=== PATIENT | male | born 1980 | race Caucasian/White ===

== ENCOUNTER 2020-03-23 10:44 | Outpatient (REF) | payer OTHER, SELFPAY | END 2020-03-23 10:45 | disposition home or self-care (01) | LOC: HO.HMGCLDS 10:44 | PROVIDERS: Visit Provider Internal Medicine | DX: Z20.828 Contact with and (suspected) exposure to other viral communicable diseases (principal) | CPT/HCPCS: C9803; U0003 ==

== ENCOUNTER 2020-05-21 11:25 | Outpatient (REF) | payer OTHER, SELFPAY | END 2020-05-21 11:26 | disposition home or self-care (01) | LOC: HO.HMGCLDS 11:25 | PROVIDERS: PCP Nurse Practitioner Family; Visit Provider Internal Medicine | DX: Z20.822 Contact with and (suspected) exposure to COVID-19 (principal) | CPT/HCPCS: 36415; C9803; U0003 ==

== ENCOUNTER 2020-06-14 11:19 | Outpatient (REF) | payer OTHER, SELFPAY ==
--- NOTE | 2020-06-14 11:22 | US_ITS ---
EXAMINATION: US PELVIS, LIMITED/FOLLOW UP CLINICAL INFORMATION: Lower abdominal pain. COMPARISON: None TECHNIQUE: Sonographic evaluation of the right inguinal region. FINDINGS: There is no hernia identified. Lymph nodes are seen in this area measuring 2 x 0.8 x 1.5 cm and 2.5 x 0.7 x 1.4 cm. No fluid collection. US/US pelvic limited IMPRESSION: No hernia seen in the right inguinal region. Lymph nodes are present.
== END 2020-06-14 11:20 | disposition home or self-care (01) ==
LOC: HO.HMGCX 11:19
PROVIDERS: PCP Nurse Practitioner Family; Visit Provider Nurse Practitioner Family
DX: R10.30 Lower abdominal pain, unspecified (principal)
CPT/HCPCS: 76857

== ENCOUNTER 2020-07-18 12:45 | Outpatient (REF) | payer OTHER, SELFPAY ==
--- NOTE | ~2020-07-18 | US_ITS ---
EXAMINATION: US pelvic, LIMITED/FOLLOW UP CLINICAL INFORMATION: Right groin pain. Follow up lymphadenopathy. COMPARISON: Previous ultrasound May 2020 TECHNIQUE: Grayscale and color imaging of the right inguinal region using a linear transducer FINDINGS: No lymphadenopathy is seen. No hernia is appreciated. US/US pelvic limited IMPRESSION: Unremarkable examination. No hernia or lymphadenopathy is seen.
== END 2020-07-18 12:46 | disposition home or self-care (01) ==
LOC: HO.HMGCX 12:45
PROVIDERS: PCP Nurse Practitioner Family; Visit Provider Nurse Practitioner Family
DX: R59.0 Localized enlarged lymph nodes (principal)
CPT/HCPCS: 76857

== ENCOUNTER 2020-07-22 00:44 | Emergency (ER) | payer OTHER, SELFPAY ==
--- NOTE | 2020-07-22 01:08 | ED.SKABFB ---
HPI - Skin/Abscess/Foreign Bdy General Chief complaint: General Medical Stated complaint: Rash Time Seen by Provider: 07/22/20 00:55 Source: patient Mode of arrival: ambulatory Limitations: no limitations History of Present Illness HPI narrative: 40 yo male with past medical history of PUD here with complaints of rash. Patient tells me he noticed a few pinpoint lesions 2-3 weeks ago but increased in the last 24 hrs. Rash is described as burning and itchy. Patient tells me that he had a similar rash approximately 2 years ago requiring admission to the hospital. He tells me that he was seen by Infectious Disease and Dermatology but there was no on clear source of the rash. It did improve with prednisone. Patient denies fevers, chills, neck pain, headache, photophobia, joint pain or swelling, abdominal pain, vomiting, diarrhea, cough or shortness of breath. He denies any recent tick bites. He did start Protonix 4 weeks ago but has taken this previously with no issues. No other new products, medications, detergents. No sick contacts. No recent travel. MD complaint: rash Related Data Previous Rx's Medication Instructions Recorded hydrocortisone acetate 25 mg 25 mg LA DAILY PRN 30 Days #12 ea 06/17/20 rectal suppository pantoprazole 20 mg tablet,delayed 20 mg PO DAILY #30 tab 06/25/20 release Allergies Allergy/AdvReac Type Severity Reaction Status Date / Time hydromorphone [HYDROMORPHONE] Allergy Mild VOMITING Unverified 05/30/20 14:30 bee pollen [BEE STINGS] Allergy Unknown SWELLING Unverified 05/30/20 14:30 varenicline [From Chantix] Allergy Unknown severe Verified 05/30/20 14:30 stomach pain barium sulfate AdvReac Unknown Severe Verified 05/30/20 14:30 stomach pain SHELLFISH Allergy Intermediate HIVES, Uncoded 05/30/20 14:30 THROAT SWELLING ORANGE #5 DYE Allergy Mild HIVES Uncoded 05/30/20 14:30 Review of Systems Review of Systems: Yes all other systems are reviewed and are negative Constitutional: Constitutional: Reports no additional constitutional complaints, Denies body ache(s), Denies chills, Denies fever(s), Denies headache(s) and Denies weakness Eyes: Eyes: Reports no additional eye complaints and Denies change in vision ENT: Reports system reviewed and no additional complaints, except as documented, Denies dizziness, Denies headache(s), Denies nasal congestion, Denies nasal discharge and Denies neck pain Cardiovascular: Cardiovascular: Reports no additional cardiovascular complaints, Denies chest pain, Denies leg edema and Denies dyspnea Respiratory: Respiratory: Reports no additional respiratory complaints, Denies cough and Denies dyspnea Gastrointestinal: Gastrointestinal: Reports no additional gastrointestinal complaints, Denies abdominal pain, Denies diarrhea, Denies nausea and Denies vomiting Genitourinary: Genitourinary: Denies dysuria, Denies penile discharge, Denies testicular pain and Denies urinary incontinence Musculoskeletal: Musculoskeletal: Reports no additional musculoskeletal complaints, Denies back pain, Denies arthralgias, Denies joint swelling, Denies neck pain, Denies numbness and Denies tingling Integumentary/Breasts: Skin/Breast: Reports system reviewed and no additional complaints, except as docu and Reports rash Neurologic: Reports system reviewed and no additional complaints, except as documented, Denies Abnormal speech present, Denies dizziness, Denies headache(s), Denies numbness, Denies tingling and Denies weakness Psychiatric: Psychiatric: Reports anxiety PENDING SALE TO [facility] Past Medical History Attestation statement: The following information was validated with the patient. Source: old records reviewed and nursing notes reviewed Medical History (Updated 07/22/20 @ 01:09 by Cherrie Curry NP) PUD (peptic ulcer disease) Surgical History History of endoscopy Family History Family History Father No problems noted. Mother Diabetes mellitus Brother No problems noted. Sister No problems noted. Son No problems noted. Daughter No problems noted. Social History Social History Alcohol intake: current Alcohol intake frequency: a few times a week Smoking Status: Former smoker Tobacco Type: Cigarette Years Smoked: 25 years Advance Directives: No Advance Directives Information Provided: No Physical Exam Vital Signs: Vital Signs: Last Vital Signs Temp 97.8 F 07/22/20 01:09 Pulse 78 07/22/20 01:09 Resp 16 07/22/20 01:09 BP 141/88 H 07/22/20 01:09 Pulse Ox 96 07/22/20 01:09 Body Mass Index 31.8 Const: General: alert and anxious Orientation/consciousness: patient oriented x3 Limitations: no limitations HENMT: Head: Yes normal to inspection Ears: hearing grossly normal bilaterally General nose exam: Normal external nose present Face and sinus: Yes normal facial exam Mouth: Normal oral and palatal mucosa present Throat: Yes posterior oropharynx normal Eyes: General: appearance normal, both eyes and all related structures Pupils: Equal, round and reactive pupils present Neck: Neck: Yes normal visual inspection, Yes full ROM, Yes no lymphadenopathy, Yes no meningeal signs and Yes supple Chest: Chest palpation & inspection: normal inspection of the chest Resp: Effort & Inspection: normal respiratory effort Auscultation: clear to auscultation bilaterally Cardio: Rate: regular rate Rhythm: regular rhythm Peripheral pulses: Peripheral pulses 2+ throughout GI: Inspection: Yes normal to inspection Palpation (GI): Soft to palpation and nontender Auscultation: normal bowel sounds Back/Spine/Pelvis: Thoracic/Lumbar Spine: thoracic and lumbar spine normal to inspection Skin: Other: Purpuric rash over the lower extremities, lower abdomen, genital region. Few were pinpoint lesions noted on the upper extremities and back. The face spared. The hands and the soles of the feet are spared. Non blanchable. No sloughing of skin. General skin exam: no rashes or lesions noted Neuro: General: patient oriented x3, no meningeal signs, no focal motor deficits and normal sensation to monofilament Cranial nerves: Yes Equal, round and reactive pupils present Cognition (Neuro): normal cognition Speech: No Abnormal speech present Gait exam (Neuro): Normal gait present Motor exam (neuro): 5/5 motor strength present throughout Extrem: General: Yes normal to inspection Course Course Course Narrative: Purpuric rash over LE, genitals, lower abdomen with fewer lesions on the UE x several weeks worsening over the last 24 hrs. Well appearing, stable vital signs. No other complaints. Afebrile. No meningeal signs. Had similar rash 2 yrs ago with unknown cause which improved with prednisone. Will check labs including inflammatory markers, UA, COVID screen. 0200-Sign out to Dr Barlow pending above. MDM - Skin/Abscess/Foreign Bdy MDM Narrative Medical decision making narrative: Vasculitis (HSP), viral exanthum, rickettsia, meningococcal rash, gonococcal rash, drug rash (SJS, TEN). Medical Records Attestation: I reviewed the patient's medical records. Lab Data Attestation: I reviewed the patient's lab results. Result diagrams: 07/22/20 01:07/22/20 01:33 Labs: Lab Results 07/22/20 07/22/20 07/22/20 Range/Units : 01:33 01:33 WBC 6.0 (4.8-10.8) X10*3/uL RBC 4.96 (4.60-5.80) X10*6/uL Hgb 14.7 (14.0-18.0) g/dl Hct 43.6 (42-52) % MCV 87.9 (80-98) fL MCH 29.6 (27.0-33.0) pg MCHC 33.7 (31.0-36.0) g/dl RDW 12.4 (11.0-16.0) % Plt Count 236 (160-400) X10*3/uL MPV 10.3 (9.4-12.4) fL Immature Gran % (Auto) 0.2 (0.0-0.4) % Neut % (Auto) 48.8 (45-73) % Lymph % (Auto) 36.8 (20-40) % [place]orne % (Auto) 9.7 (2-11) % Eos % (Auto) 4.2 H (0-4) % Baso % (Auto) 0.3 (0-2) % Lymph # (Auto) 2.2 (1.2-4.9) X10*3/uL [place] # (Auto) 0.6 (0.1-1.2) X10*3/uL Eos # (Auto) 0.3 (0.0-0.4) X10*3/uL Baso # (Auto) 0.0 (0.0-0.2) X10*3/uL Abs Immat Gran (auto) 0.01 (0.00-0.03) X10*3/uL Absolute Neuts (auto) 2.9 (2.0-8.3) X10*3/uL Absolute Nucleated RBC 0.000 (0.0-0.012) X10*3/uL Nucleated RBC % (auto) 0.0 (0.0-0.2) /100WBC Lactic Acid 1.4 (0.5-2.0) mmol/L COVID-19 ([facility]) Negative (Negative) COVID-19 Clin Com See Note Discharge Plan Discharge Prescriptions: No Action hydrocortisone acetate [Anusol-HC] 25 mg suppository 25 mg LA DAILY PRN (Reason: hemorrhoids) 30 Days Qty: 12 RF: 0 pantoprazole 20 mg tablet,delayed release (DR/EC) 20 mg PO DAILY Qty: 30 RF: 2
[2020-07-22 01:09] VITALS: BP 141/88; PULSE 78; RESP 16; TEMP 36.6; O2SAT 96; BMI 31.8
[2020-07-22 01:43] LABS: MANUAL DIFF FLAG NO
[2020-07-22 01:44] LABS: Basophils Percent Auto 0.3 % (0-2); Eosinophils Absolute Auto 0.3 X10*3/uL (0.0-0.4); Eosinophils Percent Auto 4.2 % (0-4); Hematocrit 43.6 % (42-52); Hemoglobin 14.7 g/dl (14.0-18.0); Imm Gran Abs Auto 0.01 X10*3/uL (0.00-0.03); Imm Gran Pct Auto 0.2 % (0.0-0.4); Lymphocytes Absolute Auto 2.2 X10*3/uL (1.2-4.9); Lymphocytes Percent Auto 36.8 % (20-40); Mean Corpuscular HGB Conc 33.7 g/dl (31.0-36.0); Mean Corpuscular Hemoglobin 29.6 pg (27.0-33.0); Mean Corpuscular Volume 87.9 fL (80-98); Mean Platelet Volume 10.3 fL (9.4-12.4); Monocytes Absolute Auto 0.6 X10*3/uL (0.1-1.2); Monocytes Percent Auto 9.7 % (2-11); Neutrophils Absolute Auto 2.9 X10*3/uL (2.0-8.3); Neutrophils Percent Auto 48.8 % (45-73); Platelet Count 236 X10*3/uL (160-400); Red Blood Count 4.96 X10*6/uL (4.60-5.80); Red Cell Distribution Width 12.4 % (11.0-16.0)
[2020-07-22] MEDS: LORazepam 1 MG TABLET 2 MG PO (01:52)
[2020-07-22 01:57] LABS: COVID-19 Test Negative (Negative)
[2020-07-22 02:04] LABS: Lactic Acid 1.4 mmol/L (0.5-2.0)
[2020-07-22 02:15] LABS: Alanine Aminotransferase 117 U/L (0-40); Albumin Level 4.5 g/dL (3.5-5.0); Alkaline Phosphatase 78 U/L (39-117); Anion Gap 14 (12-20); Aspartate Amino Transferase 52 U/L (5-37); Bilirubin Direct < 0.2 mg/dL (0.0-0.5); Bilirubin Total 0.4 mg/dL (0.0-1.0); Blood Urea Nitrogen 17 mg/dL (9-16); C Reactive Protein 0.28 mg/dL (< or = 0.50); Calcium 9.1 mg/dL (8.4-10.2); Carbon Dioxide 25 mmol/L (22-29); Chloride 106 mmol/L (96-108); Creatinine Clr Calc Pharmacy 125.5; Estimated Glomerular Filt Rate > 60; Glucose Random 129 mg/dL (60-115); Sodium 141 mmol/L (135-145); Total Protein 7.4 g/dL (6.5-8.0)
[2020-07-22 02:21] LABS: Erythrocyte Sedimentation Rate 4 MM/HR (0-15)
[2020-07-22] MEDS: predniSONE 20 MG TABLET 60 MG PO (02:39)
[2020-07-22] MEDS: LORazepam 1 MG TABLET PO (02:40)
[2020-07-22 03:09] VITALS: BP 143/92; PULSE 72; RESP 16; O2SAT 98
[2020-07-22 03:09] LABS: Glucose Urine UA NEG (NEG); Leukocyte Esterase Urine NEG (NEG); Nitrite Urine NEG (NEG); PH 6.5 (5.0-8.0); Specific Gravity - Urine >= 1.030 (1.005-1.025); Urine Blood NEG (NEG); Urine Ketones NEG (NEG); Urine Protein NEG (NEG-TRACE)
[2020-07-22 03:11] LABS: Appearance Urine CLEAR; Color Urine YELLOW
[2020-07-23 18:07] LABS: Lyme Abs Screen <0.90 index
== END 2020-07-22 03:32 | disposition home or self-care (01) ==
PROVIDERS: Nurse Practitioner Family; Emergency Provider Emergency Medicine; PCP Nurse Practitioner Family
DX: L29.9 Pruritus, unspecified (principal); Z20.822 Contact with and (suspected) exposure to COVID-19; F17.210 Nicotine dependence, cigarettes, uncomplicated
CPT/HCPCS: 36415; 80048; 80076; 81003; 83605; 85025; 85652; 86140; 86618; 87040; 87635; 99283; 99284

== ENCOUNTER → 2020-08-15 15:24 | Outpatient (BNVA) | payer OTHER, SELFPAY | PROVIDERS: PCP Nurse Practitioner Family; Visit Provider Surgery | DX: K64.5 Perianal venous thrombosis (principal) | CPT/HCPCS: 46600 ==

== ENCOUNTER → 2020-08-27 12:47 | Outpatient (BNVA) | payer OTHER, SELFPAY | PROVIDERS: PCP Nurse Practitioner Family; Visit Provider Surgery | DX: K64.5 Perianal venous thrombosis (principal) | CPT/HCPCS: 46600 ==

== ENCOUNTER → 2020-09-11 11:16 | Outpatient (BNVA) | payer OTHER, SELFPAY | PROVIDERS: PCP Nurse Practitioner Family; Visit Provider Psychiatry & Neurology Neurology ==

== ENCOUNTER 2021-02-09 15:48 | Emergency (ER) | payer BC, SELFPAY ==
--- NOTE | ~2021-02-09 | XR_ITS ---
FRACTURE EXAMINATION: XR ANKLE, RIGHT CLINICAL INFORMATION: Right lower extremity injury. COMPARISON: No similar priors. TECHNIQUE: Two views of the right ankle. FINDINGS: There is asymmetric soft tissue edema around the lateral malleolus with a fracture in the lateral surface of the talus. There is also asymmetric widening of the medial clear space of the ankle mortise. XR/XR ankle RT 2V IMPRESSION: Fracture in the lateral surface of the talus with asymmetric widening of the medial clear space at the ankle mortise.
--- NOTE | ~2021-02-09 | XR_ITS ---
EXAMINATION: XR FOOT, RIGHT CLINICAL INFORMATION: Right lower extremity injury. COMPARISON: Radiographs of the right ankle done simultaneously. TECHNIQUE: AP, lateral, and oblique views of the right foot. FINDINGS: Asymmetric soft tissue edema around the lateral malleolus. A talar fracture is best seen in the radiographs of the right ankle. There is widening in between the second and third cuneiforms/metatarsal bones of uncertain etiology, possibly related with patient positioning. No additional fractures or malalignment. Plantar calcaneal spur is seen. XR/XR foot RT min 3V IMPRESSION: Indeterminate widening in between the second and third cuneiform/metatarsal bones possibly related with patient positioning. A talar fracture is best evaluated in the radiograph of the right ankle.
[2021-02-09 16:26] VITALS: BP 129/79; PULSE 88; RESP 18; TEMP 36.8; O2SAT 97; BMI 32.5
--- NOTE | 2021-02-09 17:55 | ED.LOWEXIN ---
HPI - Extremity Injury (Lower) General Chief Complaint: Extremity Injury, Lower Stated Complaint: ankle inj Time Seen by Provider: 02/09/21 17:55 Source: patient Mode of arrival: wheelchair Limitations: no limitations History of Present Illness HPI Narrative: 41-year-old presents with right ankle pain. Patient was golfing, and stepped in a hole. He has no pain when he is resting his foot, he has 7/10 pain when he is moving. He has tingling in his toes and feels like he hit his ?funny bone? in his foot. He did not suffer head strike, no loss of consciousness MD complaint: foot injury Onset (ago): hour(s) (1) Type of Injury: unknown Place: street/outdoors Severity: moderate Severity scale (1-10): 5 Relieving factors: nothing Exacerbating factors: weight bearing Associated symptoms: swelling, tingling and unable to bear weight Other symptoms: none Related Data Previous Rx's Medication Instructions Recorded hydrocortisone acetate 25 mg 25 mg [place] DAILY PRN 30 Days #12 ea 06/17/20 rectal suppository (Anusol-HC) cyclobenzaprine 10 mg tablet 10 mg PO TID PRN #14 tab 07/22/20 hydrocodone 5 mg-acetaminophen 325 1 tab PO Q6H PRN #12 tab 07/22/20 mg tablet prednisone 20 mg tablet 40 mg PO DAILY 5 Days #10 tab 07/22/20 epinephrine 0.1 mg/mL injection 0.1 mg IM Q30M PRN 1 Days #20 ml 11/12/20 syringe epinephrine 0.3 mg/0.3 mL 0.3 mg IM Q10M PRN 30 Days #2 ea 11/14/20 injection, auto-injector (EpiPen) pantoprazole 20 mg tablet,delayed 20 mg PO DAILY #30 tab 12/18/20 release naproxen 500 mg tablet 500 mg PO BID 10 Days #20 tab 02/09/21 Allergies Allergy/AdvReac Type Severity Reaction Status Date / Time bee pollen [BEE STINGS] Allergy Intermediate SWELLING Verified 02/09/21 16:25 varenicline [From Chantix] Allergy Intermediate severe Verified 02/09/21 16:25 stomach pain hydromorphone [HYDROMORPHONE] Allergy Mild VOMITING Verified 02/09/21 16:25 metronidazole [From Flagyl] Allergy Difficulty Verified 02/09/21 16:25 Breathing barium sulfate AdvReac Intermediate Severe Verified 02/09/21 16:25 stomach pain SHELLFISH Allergy Intermediate HIVES, Uncoded 05/30/20 14:30 THROAT SWELLING ORANGE #5 DYE Allergy Mild HIVES Uncoded 05/30/20 14:30 Review of Systems Constitutional: Constitutional: Denies body ache(s), Denies chills, Denies fatigue, Denies fever(s), Denies headache(s), Denies malaise and Denies weakness Eyes: Eyes: Denies diplopia ENT: Denies vertigo, Denies dizziness, Denies otalgia, Denies headache(s), Denies mouth pain, Denies post nasal drip, Denies sinus pain, Denies sinus pressure, Denies sore throat and Denies throat swelling Cardiovascular: Cardiovascular: Denies chest pain, Denies syncope, Denies leg edema, Denies lightheadedness, Denies Loss of Consciousness, Denies palpitations and Denies dyspnea Respiratory: Respiratory: Denies chest congestion, Denies cough and Denies dyspnea Musculoskeletal: Musculoskeletal: Reports arthralgias, Reports joint swelling, Reports limited range of motion and Reports numbness Comments: Right foot and ankle pain Neurologic: Denies confusion, Denies vertigo, Denies dizziness, Denies syncope, Denies headache(s), Reports numbness and Denies weakness Psychiatric: Psychiatric: Denies anxiety, Denies confusion and Denies depression Endocrine: Endocrine: Denies fatigue and Denies palpitations Allergic/Immunologic: Allergic/Immunologic: Denies throat swelling PMFSH Past Medical History Medical History PUD (peptic ulcer disease) Surgical History History of endoscopy Family History Family History Father No problems noted. Mother Diabetes mellitus Brother No problems noted. Sister No problems noted. Son No problems noted. Daughter No problems noted. Social History Social History Alcohol intake: current Alcohol intake frequency: holidays/special occasions only Years Smoked: 25 years Advance Directives: No Advance Directives Information Provided: No Physical Exam Vital Signs: Vital Signs: Last Vital Signs Temp 98.3 F 02/09/21 16:26 Pulse 88 02/09/21 16:26 Resp 18 02/09/21 16:26 BP 129/79 02/09/21 16:26 Pulse Ox 97 02/09/21 16:26 Body Mass Index 32.5 Const: General: No confusion Nutritional Appearance: well nourished Orientation/consciousness: No confusion Limitations: no limitations Eyes: Conjunctivae: conjunctivae normal Pupils: Equal, round and reactive pupils present EOM: EOMs intact bilaterally Neck: Neck: Yes full ROM, Yes no lymphadenopathy and Yes supple Resp: Effort & Inspection: normal respiratory effort and able to speak in complete sentences Auscultation: clear to auscultation bilaterally, no crackles, no rales, no rhonchi and no wheezes Cardio: Rate: regular rate Rhythm: regular rhythm Heart sounds: S1 normal heart sound present and S2 normal heart sound present Skin: General skin exam: no rashes or lesions noted Neuro: General: No confusion Cranial nerves: Yes Equal, round and reactive pupils present Extrem: Right lower extremity: normal capillary refill and ankle Details: tenderness Location: of the lateral malleolus, swelling Details: laterally and abnormal ROM Details: pain with active ROM and pain with passive ROM; Negative for no unusual warmth, no ecchymosis and no crepitus Psych: Appearance: grossly normal Affect: normal affect Attitude: cooperative Thought process: Normal thought process present Course Course Course Narrative: 41-year-old male presents for right ankle pain after stepping in a hole wall golfing. XR shows: Fracture in the lateral surface of the talus with asymmetric widening of the medial clear space at the ankle mortise. Indeterminate widening in between the second and third cuneiform/metatarsal bones possibly related with patient positioning Patient splinted in a posterior short-leg splint and a stirrup splint. Fiberglass. Fitted with crutches. Prescribed oxycodone, follow-up with Orthopedics, out of work until Orthopedics season releases him. Discussed rest ice elevation compression. Discharge Plan Discharge Clinical Impression: Foot fracture, right Qualifiers: Encounter type: initial encounter Fracture type: closed Qualified Code(s): S92.901A - Unspecified fracture of right foot, initial encounter for closed fracture Patient Disposition: Home, Self-Care Instructions: Crutch Instructions (ED), Foot Fracture in Adults (ED), R.I.C.E. Treatment (ED) Additional Instructions: Do not weight bear. Leave splint on until you are seen and released by Orthopedics. You may not work until you are seen by orthopedics and they say it is okay. Please rest, and elevate your right leg as much as possible. Take Naproxen as prescribed Prescriptions: New naproxen 500 mg tablet 500 mg PO BID 10 Days Qty: 20 RF: 0 No Action hydrocortisone acetate [Anusol-HC] 25 mg suppository 25 mg UT DAILY PRN (Reason: hemorrhoids) 30 Days Qty: 12 RF: 0 epinephrine 0.1 mg/mL syringe 0.1 mg IM Q30M PRN (Reason: anaphylaxis) 1 Days Qty: 20 RF: 0 epinephrine [EpiPen] 0.3 mg/0.3 mL auto-injector 0.3 mg IM Q10M PRN (Reason: anaphylaxis) 30 Days Qty: 2 RF: 0 pantoprazole 20 mg tablet,delayed release (DR/EC) 20 mg PO DAILY Qty: 30 RF: 2 cyclobenzaprine 10 mg tablet 10 mg PO TID PRN (Reason: muscle spasm) Qty: 14 RF: 0 hydrocodone-acetaminophen 5-325 mg tablet 1 tab PO Q6H PRN (Reason: pain) Qty: 12 RF: 0 prednisone 20 mg tablet 40 mg PO DAILY 5 Days Qty: 10 RF: 0
[2021-02-09] MEDS: Acetaminophen 325 MG TABLET 975 MG PO (18:35)
--- NOTE | 2021-02-09 18:58 | PC.NURSE ---
POSTERIOR SHORT WITH STIR-UP APPLIED TO RIGHT FOOT CHECKED BY KATINA HUMMEL.
== END 2021-02-09 19:11 | disposition home or self-care (01) ==
PROVIDERS: Emergency Provider Internal Medicine; PCP Nurse Practitioner Family
DX: S92.901A Unspecified fracture of right foot, initial encounter for closed fracture (principal); M79.671 Pain in right foot; W01.0XXA Fall on same level from slipping, tripping and stumbling without subsequent striking against object, initial encounter; Y93.9 Activity, unspecified; Y92.9 Unspecified place or not applicable; Y99.9 Unspecified external cause status
CPT/HCPCS: 29515; 73600; 73630; 99284

== ENCOUNTER → 2021-02-13 12:55 | Outpatient (BNVA) | payer BC, SELFPAY | PROVIDERS: PCP Nurse Practitioner Family; Visit Provider Physician Assistant ==

== ENCOUNTER 2021-02-27 09:37 | Outpatient (REF) | payer BC, SELFPAY ==
--- NOTE | ~2021-02-27 | MR_ITS ---
EXAMINATION: MRI FOOT WITHOUT CONTRAST, RIGHT CLINICAL INFORMATION: Right foot injury. Pain and swelling. Sprain of tarsometatarsal ligament. COMPARISON: Right foot and ankle radiographs dated 02/09/2021. TECHNIQUE: Multisequence MR imaging of the right foot was obtained without contrast on a high-field strength scanner. FINDINGS: BONE: No acute fracture or dislocation. No significant widening between the 2nd and 3rd cuneiform. The findings on prior radiograph are likely projectional. No stress reaction. Intact articular cartilage. MUSCLES/TENDONS: The visualized muscles and tendons are intact. LIGAMENTS: Intact Lisfranc ligament. The plantar plates are intact. SOFT TISSUES: Mild dorsal/lateral subcutaneous edema. Small 1st metatarsophalangeal joint effusion. MR/MR foot RT wo con IMPRESSION: 1. No acute osseous injury. No widening at the 2nd and 3rd cuneiform articulation. Findings on the prior radiograph are likely projectional. 2. Dorsal/lateral subcutaneous edema without organized fluid collection. 3. Small 1st metatarsophalangeal joint effusion.
== END 2021-02-27 09:38 | disposition home or self-care (01) ==
LOC: HO.MRI 09:37
PROVIDERS: PCP Nurse Practitioner Family; Visit Provider Physician Assistant
DX: S93.621D Sprain of tarsometatarsal ligament of right foot, subsequent encounter (principal)
CPT/HCPCS: 73718

== ENCOUNTER → 2021-03-15 12:26 | Outpatient (BNVA) | payer BC, SELFPAY | PROVIDERS: Visit Provider Physician Assistant ==

== ENCOUNTER 2021-06-04 10:47 | Outpatient (REF) | payer BC, SELFPAY ==
--- NOTE | ~2021-06-04 | XR_ITS ---
EXAMINATION: XR KNEE, LEFT CLINICAL INFORMATION: Pain left knee COMPARISON: None TECHNIQUE: Four views of the left knee. FINDINGS: Mild loss of medial compartment joint space with minimal periarticular spurring. The lateral and patellofemoral compartment joint space is normal. Mild suprapatellar joint effusion is seen. No acute fracture, dislocation or subluxation seen. No lytic or sclerotic process. XR/XR knee LT 4V IMPRESSION: Mild degenerative changes medial compartment with minimal periarticular spurring.
== END 2021-06-04 10:48 | disposition home or self-care (01) ==
LOC: HO.HMGCX 10:47
PROVIDERS: PCP Nurse Practitioner Family; Visit Provider Nurse Practitioner Family
DX: M25.562 Pain in left knee (principal)
CPT/HCPCS: 73564

== ENCOUNTER 2021-07-17 08:50 | Outpatient (RCR) | payer BC, SELFPAY ==
--- NOTE | 2021-07-17 17:39 | MHC.PT.EP ---
[facility] [place] [facility] [place] [facility] [place] [facility] [address] Poli Haynes [address] [phone] F: [phone] F: [phone] F: [phone] F: [phone] Physical Therapy Plan of Care Date of Evaluation: Date of Surgery: Diagnosis: L knee pain. 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 Pt is deemed an appropriate candidate to receive skilled PT in order to address his physical limitations to improve his functional ability. Frequency and Duration: The patient will be seen 1 x / wk x 6 wks. Short Term Goals: initiate HEP [employer] Goals: I with HEP. improve L knee ext to > 4+/5, initial 4/5. Pt will be able to negotiate 1 fl of stairs with managed Sx. Pt will be able to walk 1 mile with managed Sx. Improve glute Med MMT to > 4+/5, initial 4/5 B. Treatment Plan: Modalities to reduce pain, spasms and effusion. Manual therapy to restore motion and function. Therapeutic exercise to improve strength and flexibility. Neuromuscular re-education for posture and balance. Therapeutic activities to return to functional activities of daily living. Electronically signed by: Darius Light, PT, DPT. Please sign and return to therapist. Thank you for your referral.
--- NOTE | 2022-01-08 15:59 | MHC.PT.DC ---
[facility] [place] Office [place] Office [place] Office [address] Poli Haynes [address] [phone] F: [phone] F: [phone] F: [phone] F: [phone] Physical Therapy Discharge Report Diagnosis: L knee pain. Date of Surgery: Date of Evaluation: 07/17/21 Date of Discharge: 01/08/22 Treatments to Date: 1 Cancellations to Date: No Shows to Date: 2 Discharge Status: Visit Non-compliance Discharge Summary: Electronically signed by: Darius Light PT. Please sign and return to therapist. Thank you for your referral.
== END 2022-01-08 16:00 | disposition home or self-care (01) ==
LOC: HO.PTCHIC 08:50
PROVIDERS: PCP Nurse Practitioner Family; Visit Provider Nurse Practitioner Family
DX: M25.562 Pain in left knee (principal)
CPT/HCPCS: 97110; 97161

== ENCOUNTER 2021-10-07 11:41 | Outpatient (REF) | payer BC, SELFPAY ==
[2021-10-07 13:49] LABS: Alanine Aminotransferase 132 U/L (0-40); Albumin Level 4.5 g/dL (3.5-5.0); Alkaline Phosphatase 105 U/L (39-117); Anion Gap 15 (12-20); Aspartate Amino Transferase 53 U/L (5-37); Bilirubin Total 0.5 mg/dL (0.0-1.0); Blood Urea Nitrogen 16 mg/dL (9-16); Calcium 9.6 mg/dL (8.4-10.2); Carbon Dioxide 23 mmol/L (22-29); Chloride 102 mmol/L (96-108); Cholesterol 278 mg/dL; Estimated Glomerular Filt Rate > 60; Glucose Fasting 219 mg/dL (60-99); HDL Cholesterol 37 mg/dL; Potassium 4.4 mmol/L (3.3-5.1); Sodium 136 mmol/L (135-145); Total Protein 7.9 g/dL (6.5-8.0); Triglycerides 634 mg/dL
[2021-10-07 13:54] LABS: Appearance Urine CLEAR; Color Urine YELLOW; Glucose Urine UA 250 MG/DL (NEG); Leukocyte Esterase Urine NEG (NEG); Nitrite Urine NEG (NEG); PH 5.5 (5.0-8.0); Specific Gravity - Urine >= 1.030 (1.005-1.025); UACC Culture Trigger NO; Urine Blood NEG (NEG); Urine Ketones NEG (NEG); Urine Protein 1+ MG/DL (NEG-TRACE)
[2021-10-07 13:56] LABS: TSH reflex Free T4 5.39 uIU/mL (0.32-4.0)
[2021-10-07 14:30] LABS: RBC Urine 0 /HPF (0); Squamous Epithelial Cell Urine TRACE /LPF; WBC Urine 0 /HPF (0-4)
[2021-10-07 14:35] LABS: Free T4 (Free Thyroxine) 0.87 ng/dL (0.71-1.85)
== END 2021-10-07 11:42 | disposition home or self-care (01) ==
LOC: HO.WFDLDS 11:41
PROVIDERS: Visit Provider Nurse Practitioner Family
DX: Z00.00 Encounter for general adult medical examination without abnormal findings (principal)
CPT/HCPCS: 36415; 80053; 80061; 81001; 84439; 84443

== ENCOUNTER 2021-10-29 15:13 | Outpatient (REF) | payer BC, SELFPAY ==
--- NOTE | ~2021-10-29 | XR_ITS ---
EXAMINATION: XR ELBOW, RIGHT CLINICAL INFORMATION: Enthesopathy. Pain. COMPARISON: Left elbow 12/14/2015. TECHNIQUE: AP, lateral, and oblique views of the right elbow. FINDINGS: The right elbow joint space is maintained normal. No abnormal joint effusion seen. No bony erosive changes. No acute fracture or dislocation. There is minimal posterior elbow soft tissue swelling with slightly hyperintense thickened linear soft tissue question thickened capsule. However there is no abnormal fat pad sign. XR/XR elbow RT min 3V IMPRESSION: Minimal posterior right elbow soft tissue swelling with mild linear thickening of soft tissue density. No loose bodies or acute fracture seen.
== END 2021-10-29 15:14 | disposition home or self-care (01) ==
LOC: HO.HMGCX 15:13
PROVIDERS: PCP Nurse Practitioner Family; Visit Provider Internal Medicine
DX: M77.8 Other enthesopathies, not elsewhere classified (principal)
CPT/HCPCS: 73080

== ENCOUNTER 2021-11-05 08:52 | Outpatient (REF) | payer BC, MEDICAID, SELFPAY ==
[2021-11-05 11:29] LABS: MANUAL DIFF FLAG NO
[2021-11-05 11:32] LABS: Appearance Urine CLOUDY; Color Urine YELLOW; Glucose Urine UA 100 MG/DL (NEG); Leukocyte Esterase Urine NEG (NEG); Nitrite Urine NEG (NEG); PH 5.5 (5.0-8.0); Specific Gravity - Urine >= 1.030 (1.005-1.025); Urine Blood NEG (NEG); Urine Ketones NEG (NEG); Urine Protein NEG (NEG-TRACE)
[2021-11-05 11:53] LABS: Basophils Percent Auto 0.4 % (0-2); Eosinophils Absolute Auto 0.2 X10*3/uL (0.0-0.4); Eosinophils Percent Auto 4.8 % (0-4); Hemoglobin 14.6 g/dl (14.0-18.0); Imm Gran Abs Auto 0.01 X10*3/uL (0.00-0.03); Imm Gran Pct Auto 0.2 % (0.0-0.4); Lymphocytes Absolute Auto 1.6 X10*3/uL (1.2-4.9); Lymphocytes Percent Auto 31.5 % (20-40); Mean Corpuscular HGB Conc 32.4 g/dl (31.0-36.0); Mean Corpuscular Volume 89.3 fL (80.0-98.0); Mean Platelet Volume 10.5 fL (9.4-12.4); Monocytes Absolute Auto 0.5 X10*3/uL (0.1-1.2); Monocytes Percent Auto 10.5 % (2-11); Neutrophils Absolute Auto 2.6 x10*3/uL (2.0-8.3); Neutrophils Percent Auto 52.6 % (45-73); Platelet Count 218 X10*3/uL (160-400); Red Blood Count 5.04 X10*6/uL (4.60-5.80); Red Cell Distribution Width 12.3 % (11.0-16.0)
[2021-11-05 12:16] LABS: TSH reflex Free T4 4.83 uIU/mL (0.32-4.0)
[2021-11-05 14:13] LABS: Free T4 (Free Thyroxine) 0.84 ng/dL (0.71-1.85)
[2021-11-07 10:21] LABS: Thyroid Peroxidase Antibodies >900 IU/mL (<9)
== END 2021-11-05 08:53 | disposition home or self-care (01) ==
LOC: HO.HMGCLDS 08:52
PROVIDERS: PCP Nurse Practitioner Family; Visit Provider Nurse Practitioner Family
DX: R79.89 Other specified abnormal findings of blood chemistry (principal); E11.9 Type 2 diabetes mellitus without complications
CPT/HCPCS: 36415; 81003; 84439; 84443; 85025; 86376

== ENCOUNTER 2021-11-11 10:30 | Outpatient (REF) | payer BC, SELFPAY ==
--- NOTE | ~2021-11-11 | XR_ITS ---
EXAMINATION: XR KNEE, LEFT CLINICAL INFORMATION: Pain in left knee COMPARISON: None TECHNIQUE: Four views of the left knee. FINDINGS: No fracture or dislocation. Increased suprapatellar soft tissue density may represent a joint effusion or more likely overlying soft tissues due to body habitus. Mild medial compartment joint space narrowing. No osteophytosis. XR/XR knee LT 4V IMPRESSION: Mild medial compartment joint space narrowing. Increased suprapatellar soft tissue density on the lateral view is more likely overlying soft tissues due to body habitus than a joint effusion.
== END 2021-11-11 10:31 | disposition home or self-care (01) ==
LOC: HO.HMGCX 10:30
PROVIDERS: Visit Provider Physician Assistant
DX: M25.562 Pain in left knee (principal)
CPT/HCPCS: 73564

== ENCOUNTER 2021-12-03 08:05 | Outpatient (REF) | payer BC, SELFPAY ==
--- NOTE | ~2021-12-03 | XR_ITS ---
EXAMINATION: XR KNEE AP STANDING. XR KNEE, LEFT CLINICAL INFORMATION: Knee pain COMPARISON: 11/11/2021 TECHNIQUE: AP bilateral standing view of the knees was obtained. Lateral and sunrise views of the left knee FINDINGS: Mild medial compartment narrowing and small marginal osteophytes of the left knee. No joint effusion. Normal AP view of the right knee. XR/XR knee standing BI IMPRESSION: Mild medial compartment osteoarthritis of the left knee. No change.
--- NOTE | ~2021-12-03 | XR_ITS ---
EXAMINATION: XR KNEE AP STANDING. XR KNEE, LEFT CLINICAL INFORMATION: Knee pain COMPARISON: 11/11/2021 TECHNIQUE: AP bilateral standing view of the knees was obtained. Lateral and sunrise views of the left knee FINDINGS: Mild medial compartment narrowing and small marginal osteophytes of the left knee. No joint effusion. Normal AP view of the right knee. XR/XR knee LT 1V IMPRESSION: Mild medial compartment osteoarthritis of the left knee. No change.
== END 2021-12-03 08:06 | disposition home or self-care (01) ==
LOC: HO.HOSX 08:05
PROVIDERS: Visit Provider Physician Assistant
DX: S83.242D Other tear of medial meniscus, current injury, left knee, subsequent encounter (principal)
CPT/HCPCS: 73560; 73565; 99212

== ENCOUNTER → 2022-01-06 10:23 | Outpatient (BNVA) | payer BC, OTHER, SELFPAY | PROVIDERS: PCP Nurse Practitioner Family; Visit Provider Physician Assistant | DX: S83.242A Other tear of medial meniscus, current injury, left knee, initial encounter (principal) | CPT/HCPCS: 99212 ==

== ENCOUNTER → 2022-01-17 10:36 | Outpatient (BNVA) | payer BC, OTHER, SELFPAY | PROVIDERS: PCP Nurse Practitioner Family; Visit Provider Orthopaedic Surgery | DX: S83.207A Unspecified tear of unspecified meniscus, current injury, left knee, initial encounter (principal); E11.9 Type 2 diabetes mellitus without complications | CPT/HCPCS: 99212 ==

== ENCOUNTER 2022-01-27 14:39 | Outpatient (RCR) | payer BC, SELFPAY ==
--- NOTE | 2022-01-28 07:30 | MHC.PT.EP ---
[facility] [place] Office [place] Office [place] Office [address] Poli Haynes [address] [phone] F: [phone] F: [phone] F: [phone] F: [phone] Physical Therapy Plan of Care Date of Evaluation: Date of Surgery: Diagnosis: This is a 42 yo male presenting to skilled PT with a script for L knee meniscal tear Assessment: This is a 42 yo male presenting to skilled PT with a script for L knee meniscal tear. Pt comes to PT reporting that on 11/12 at work she was moving boxes when he felt his left knee pop. Since then he has been having pain. He has been seen by [facility] ortho, had an MRI and has a torn medial meniscus from injury at work as well as an absent ACL from an old football injury per patient. Pt has been out of work and is planning on having surgery on 02/[address] Chisholm. He reports that he has been experiencing pain since as well as crepitus, locking, clicking and popping with change of knee position. He also had an x-ray that showed medial compartment joint space narrowing. He has pain with weightbearing as well as at rest. He is limited in activity tolerance including stairs, ambulation, lifting, and bending. Pain is located mainly at the medial joint line and is described as stabbing. Additionally, due to antalgic gait he has started to have increased back pain. Assessment reveals pain that ranges up to a 9/10. He demos impaired knee ROM with hyperextension, decreased hip and knee strength, impaired gait pattern with pain that includes his back, impaired joint mobility at patella and femur as well as gross functional decline with walking, stairs, lifting and ADLs. He is a good candidate for skilled PT once medically ready. As he is having surgery in a week PT performed an evaluation, distributed HEP and educated on healing, safety and post surgical PT. Plan to DC to HEP at this time until after surgery. Frequency and Duration: The patient will be seen Short Term Goals: I in HEP Mcfp Goals: LTG's will be addressed post surgery Treatment Plan: Modalities to reduce pain, spasms and effusion. Manual therapy to restore motion and function. Therapeutic exercise to improve strength and flexibility. Neuromuscular re-education for posture and balance. Therapeutic activities to return to functional activities of daily living. Electronically signed by: Diya Melo PT Please sign and return to therapist. Thank you for your referral.
--- NOTE | 2022-02-04 14:43 | MHC.PT.DC ---
[facility] [place] Office [place] Office [place] Office [address] Poli Haynes [address] [phone] F: [phone] F: [phone] F: [phone] F: [phone] Physical Therapy Discharge Report Diagnosis: This is a 42 yo male presenting to skilled PT with a script for L knee meniscal tear Date of Surgery: Date of Evaluation: 01/27/22 Date of Discharge: 02/04/22 Treatments to Date: 1 Cancellations to Date: 0 No Shows to Date: 0 Discharge Status: Independent with HEP Patient Elected to Stop Discharge Summary: This is a 42 yo male presenting to skilled PT with a script for L knee meniscal tear. Pt comes to PT reporting that on 11/12 at work she was moving boxes when he felt his left knee pop. Since then he has been having pain. He has been seen by [facility] orth[facility], had an MRI and has a torn medial meniscus from injury at work as well as an absent ACL from an old football injury per patient. Pt has been out of work and is planning on having surgery on 02/[address] Chisholm. He reports that he has been experiencing pain since as well as crepitus, locking, clicking and popping with change of knee position. He also had an x-ray that showed medial compartment joint space narrowing. He has pain with weightbearing as well as at rest. He is limited in activity tolerance including stairs, ambulation, lifting, and bending. Pain is located mainly at the medial joint line and is described as stabbing. Additionally, due to antalgic gait he has started to have increased back pain. Assessment reveals pain that ranges up to a 9/10. He demos impaired knee ROM with hyperextension, decreased hip and knee strength, impaired gait pattern with pain that includes his back, impaired joint mobility at patella and femur as well as gross functional decline with walking, stairs, lifting and ADLs. He is a good candidate for skilled PT once medically ready. As he is having surgery in a week PT performed an evaluation, distributed HEP and educated on healing, safety and post surgical PT. Plan to DC to HEP at this time until after surgery. Electronically signed by: Diya Melo PT Please sign and return to therapist. Thank you for your referral.
== END 2022-02-04 14:43 | disposition home or self-care (01) ==
LOC: HO.PTCHIC 14:39
PROVIDERS: PCP Nurse Practitioner Family; Visit Provider Orthopaedic Surgery
DX: S83.207A Unspecified tear of unspecified meniscus, current injury, left knee, initial encounter (principal); S83.282A Other tear of lateral meniscus, current injury, left knee, initial encounter
CPT/HCPCS: 97110; 97161

== ENCOUNTER → 2022-06-05 09:59 | Outpatient (BNVA) | payer BC, SELFPAY | PROVIDERS: PCP Nurse Practitioner Family; Visit Provider Orthopaedic Surgery | DX: S83.207A Unspecified tear of unspecified meniscus, current injury, left knee, initial encounter (principal); E11.9 Type 2 diabetes mellitus without complications | CPT/HCPCS: 99212 ==

== ENCOUNTER 2022-06-18 09:59 | Day surgery (SDC) | payer BC, SELFPAY ==
[2022-06-12 15:49] VITALS: BMI 32.1
[2022-06-18] VITALS (11 sets, daily range): BP systolic 120–152; BP diastolic 85–103; PULSE 63–86; RESP 10–18; TEMP 36.3–36.6; O2SAT 94–98
[2022-06-18 10:32] LABS: Glucose, Whole Blood 198 mg/dL (60-115)
[2022-06-18] MEDS: Lactated Ringers 1,000 ML 50 ML IVCONT (10:48)
--- NOTE | 2022-06-18 12:09 | HO.ANESPROP2 ---
[facility] Active Problems Active Problems: All Active Problems (Updated 06/10/22 @ 17:18 by Lenny Maher, [facility]) Major depression, recurrent, chronic (Acute) Scrotal swelling (Acute) Diabetes (Acute) Physical exam (Acute) Sleep apnea (Acute) Groin discomfort (Acute) GERD (gastroesophageal reflux disease) (Acute) Inguinal lymphadenopathy (Acute) Pelvic pain in male (Acute) Thrombosed external hemorrhoid (Acute) Snoring (Acute) Witnessed apneic spells (Acute) Insomnia (Acute) Foot fracture, right (Acute) Lisfranc's sprain (Acute) Avulsion fracture of right talus (Acute) Left knee pain (Acute) Cramps of left lower extremity (Acute) Strain of mid-back (Acute) Blood in stool (Acute) Back pain (Acute) Gastritis (Acute) Newly diagnosed diabetes (Acute) Tendinitis of right elbow (Acute) Elevated TSH (Acute) Waterbrash (Acute) Elevated liver enzymes (Acute) Medial meniscus tear (Acute) Tear of meniscus of left knee (Acute) Diabetes mellitus (Acute) Hiatal hernia (Acute) Past Medical History Medical History Arthritis Elevated cholesterol Hiatal hernia HTN (hypertension) Loud snoring Low back pain PUD (peptic ulcer disease) Family History Family History Father No problems noted. Mother Diabetes mellitus Brother No problems noted. Sister No problems noted. Son No problems noted. Daughter No problems noted. Surgical History Surgical History History of endoscopy Social History Social History Housing: House Are you a primary career education teacher to a significant other at home: No Do you presently have visiting nurse or other home services: No Alcohol intake: current Alcohol intake frequency: a few times a week Alcohol type: beer Patient Tobacco Use Status: Current everyday Tobacco user Tobacco use type: Cigarette Cigarette Packs Per Day: 1 Cigarettes Per Day: 10 Years Smoked: 11 Smoked in Last 30 Days: Yes e-Cigarette/Vaping Use: Never Used Second Hand Smoke Exposure: No Use of substances other than those prescribed or required for medical reasons: No Have you been hit, kicked, punched, or otherwise hurt by someone within the past year? If so, by whom?: No Are you DNR?: No Advance Directives: No Advance Directives Information Provided: Yes Advance Directives on File: No Recently lost weight without trying: No Poor oral hygiene: No service: No Current occupational status: employed Current occupation: [employer] Current occupational exposures/hazards: No Cognitive needs: No Hearing needs: No Vision needs: No Meds Allergies Allergy/AdvReac Type Severity Reaction Status Date / Time metronidazole [From Flagyl] Allergy Severe Anaphylaxis Verified 06/18/22 10:12 varenicline [From Chantix] Allergy Severe severe Verified 06/18/22 10:12 stomach pain weird dreams bee pollen [BEE STINGS] Allergy Intermediate SWELLING Verified 06/18/22 10:12 hydromorphone [HYDROMORPHONE] Allergy Intermediate VOMITING Verified 06/18/22 10:12 barium sulfate AdvReac Severe Severe Verified 06/18/22 10:12 stomach pain SHELLFISH Allergy Severe Anaphylaxis Uncoded 06/10/22 13:06 ORANGE #5 DYE Allergy Mild HIVES Uncoded 06/10/22 13:06 Active Medications: Current Medications Lactated Ringer's (Lr) 1,000 mls @ 50 mls/hr IVCONT .Q20H ILYA Last Admin: 06/18/22 10:48 Dose: 50 mls/hr Home Medications Medication Instructions Recorded Confirmed Last Taken Type famotidine 40 mg tablet 40 mg PO BEDTIME 01/31/22 06/12/22 Unknown History Exam Exam Date and Time: June 18, 2022 1209 Height,Weight and Vital Signs: Height 6 ft 4 in Weight 119.748 kg Last Vital Signs Temp 97.8 F 06/18/22 10:20 Pulse 73 06/18/22 10:20 Resp 15 06/18/22 10:20 BP 138/92 H 06/18/22 10:20 Pulse Ox 94 06/18/22 10:20 O2 Del Method 06/18/22 10:20 Pertinent Lab Results Pertinent Lab Results: Laboratory Tests 06/18/22 10:28 POC Glucose 198 H Airway Mallampati Class: II TM Dist: >3cm Neck ROM: Full Heart: RRR Lungs: CTA Assessment and Plan Final Anesthetic Review ASA Class: II Final Preanesthetic Review: Meds/Allgs Chart Reviewed and Consent Obtained/Reviewed Patient Risk: Intermediate Procedure Risk: Low Anesthetic Plan Anesthetic Plan: GA Disposition: Standard PACU
--- NOTE | 2022-06-18 12:58 | MHC.SHP ---
Pre-Procedural Eval Section A Date of Service: 06/18/22 The patient is an INPATIENT: No Changes since office visit: No Cold of Flu in the past 2 weeks, No New Medical Problems, No Changes in Medication and No Patient answered all questions The History & Physical has been completed within 30 days and I have reviewed it.: Yes Section B Chief Complaint: Unspecified tear of unspecified meniscus, current Allergies: Allergies Allergy/AdvReac Type Severity Reaction Status Date / Time metronidazole [From Flagyl] Allergy Severe Anaphylaxis Verified 06/18/22 10:12 varenicline [From Chantix] Allergy Severe severe Verified 06/18/22 10:12 stomach pain weird dreams bee pollen [BEE STINGS] Allergy Intermediate SWELLING Verified 06/18/22 10:12 hydromorphone [HYDROMORPHONE] Allergy Intermediate VOMITING Verified 06/18/22 10:12 barium sulfate AdvReac Severe Severe Verified 06/18/22 10:12 stomach pain SHELLFISH Allergy Severe Anaphylaxis Uncoded 06/10/22 13:06 ORANGE #5 DYE Allergy Mild HIVES Uncoded 06/10/22 13:06 Plan I have reviewed the history and physical and performed a pertinent physical examination on my patient. No changes have occurred unless specified. Time Spent With Patient Time: Total time managing care of this patient today ____ minutes.
--- NOTE | 2022-06-18 13:21 | HE.ANESPSPN ---
Anesthesia Pain Service Progress Note Assessment: Patient seen and evaluated during pain rounds. Pain control reported as [ ].
--- NOTE | 2022-06-18 13:21 | HO.ANESPROP2 ---
[facility] Active Problems Active Problems: All Active Problems (Updated 06/10/22 @ 17:18 by Lenny Maher, [facility]) Major depression, recurrent, chronic (Acute) Scrotal swelling (Acute) Diabetes (Acute) Physical exam (Acute) Sleep apnea (Acute) Groin discomfort (Acute) GERD (gastroesophageal reflux disease) (Acute) Inguinal lymphadenopathy (Acute) Pelvic pain in male (Acute) Thrombosed external hemorrhoid (Acute) Snoring (Acute) Witnessed apneic spells (Acute) Insomnia (Acute) Foot fracture, right (Acute) Lisfranc's sprain (Acute) Avulsion fracture of right talus (Acute) Left knee pain (Acute) Cramps of left lower extremity (Acute) Strain of mid-back (Acute) Blood in stool (Acute) Back pain (Acute) Gastritis (Acute) Newly diagnosed diabetes (Acute) Tendinitis of right elbow (Acute) Elevated TSH (Acute) Waterbrash (Acute) Elevated liver enzymes (Acute) Medial meniscus tear (Acute) Tear of meniscus of left knee (Acute) Diabetes mellitus (Acute) Hiatal hernia (Acute) Past Medical History Medical History Arthritis Elevated cholesterol Hiatal hernia HTN (hypertension) Loud snoring Low back pain PUD (peptic ulcer disease) Family History Family History Father No problems noted. Mother Diabetes mellitus Brother No problems noted. Sister No problems noted. Son No problems noted. Daughter No problems noted. Surgical History Surgical History History of endoscopy Social History Social History Housing: House Are you a primary rn primary care to a significant other at home: No Do you presently have visiting nurse or other home services: No Alcohol intake: current Alcohol intake frequency: a few times a week Alcohol type: beer Patient Tobacco Use Status: Current everyday Tobacco user Tobacco use type: Cigarette Cigarette Packs Per Day: 1 Cigarettes Per Day: 10 Years Smoked: 11 Smoked in Last 30 Days: Yes e-Cigarette/Vaping Use: Never Used Second Hand Smoke Exposure: No Use of substances other than those prescribed or required for medical reasons: No Have you been hit, kicked, punched, or otherwise hurt by someone within the past year? If so, by whom?: No Are you DNR?: No Advance Directives: No Advance Directives Information Provided: Yes Advance Directives on File: No Recently lost weight without trying: No Poor oral hygiene: No service: No Current occupational status: employed Current occupation: [employer] Current occupational exposures/hazards: No Cognitive needs: No Hearing needs: No Vision needs: No Meds Allergies Allergy/AdvReac Type Severity Reaction Status Date / Time metronidazole [From Flagyl] Allergy Severe Anaphylaxis Verified 06/18/22 10:12 varenicline [From Chantix] Allergy Severe severe Verified 06/18/22 10:12 stomach pain weird dreams bee pollen [BEE STINGS] Allergy Intermediate SWELLING Verified 06/18/22 10:12 hydromorphone [HYDROMORPHONE] Allergy Intermediate VOMITING Verified 06/18/22 10:12 barium sulfate AdvReac Severe Severe Verified 06/18/22 10:12 stomach pain SHELLFISH Allergy Severe Anaphylaxis Uncoded 06/10/22 13:06 ORANGE #5 DYE Allergy Mild HIVES Uncoded 06/10/22 13:06 Active Medications: Current Medications Fentanyl (Fentanyl Citrate/Pf 100 Mcg/2 Ml Vial) 25 mcg IVPUSH Q5M PRN; Protocol PRN Reason: Pain, Moderate (Pain Scale 4-6 Lactated Ringer's (Lr) 1,000 mls @ 50 mls/hr IVCONT .Q20H ILYA Last Admin: 06/18/22 10:48 Dose: 50 mls/hr Ondansetron HCl (Ondansetron Hcl 4 Mg/2 Ml Vial) 4 mg IVPUSH ONCE PRN PRN Reason: Nausea and Vomiting Home Medications Medication Instructions Recorded Confirmed Last Taken Type famotidine 40 mg tablet 40 mg PO BEDTIME 01/31/22 06/12/22 Unknown History Exam Exam Date and Time: June 18, 2022 1321 Height,Weight and Vital Signs: Height 6 ft 4 in Weight 119.748 kg Last Vital Signs Temp 97.8 F 06/18/22 10:20 Pulse 73 06/18/22 10:20 Resp 15 06/18/22 10:20 BP 138/92 H 06/18/22 10:20 Pulse Ox 94 02/01/23 10:20 O2 Del Method 06/18/22 10:20 Pertinent Lab Results Pertinent Lab Results: Laboratory Tests 06/18/22 10:28 POC Glucose 198 H Airway Mallampati Class: III TM Dist: >3cm Neck ROM: Full Heart: RRR Lungs: CTA Assessment and Plan Final Anesthetic Review ASA Class: II Final Preanesthetic Review: Meds/Allgs Chart Reviewed and Consent Obtained/Reviewed Patient Risk: Low Procedure Risk: Low Anesthetic Plan Anesthetic Plan: GA Disposition: Standard PACU
--- NOTE | 2022-06-18 13:54 | P.BOP_ITS ---
Brief Operative Note Date of Service: 06/18/22 Pre-op diagnosis: left knee medial meniscus tear Post-op diagnosis: other (medial meniscus tear, lateral meniscus tear, medail compartment chondrolamalcia, high grade partial ACL tear) Procedure: Partial medial and lateral meniscectomy left knee Surgeon: Zaid Chisholm MD Anesthesia: GETA Was an Dump Grounds Checker used for this Procedure?: No Estimated blood loss (mL): 5 Tourniquet time (min): 30 IV fluids (mL): 1,000 Pathology: none sent Condition: stable Disposition: PACU
--- NOTE | 2022-06-18 14:11 | HO.POSTANES ---
Post Anesthesia Evaluation Post Anesthesia Evaluation Vital Signs: Vital Signs Temp Pulse Resp BP Pulse Ox O2 Del Method 06/18/22 10:20 97.8 F 73 15 138/92 H 94 Room Air Anesthesia: General LMA Mental Status: Awake Pain Control: Satisfactory Nausea/Vomiting: None Hydration: Adequate Anesthesia-Related Issues: No Anes. Related Issues
[2022-06-18] MEDS: ondansetron HCL 4 MG/2 ML VIAL IVPUSH (14:29)
[2022-06-18] MEDS: oxyCODONE HCl Immed Release 5 MG TABLET PO (15:13)
[2022-06-18] MEDS: Acetaminophen 1,000 MG/100 ML PIGGYBACK 400 MG IV (15:18)
--- NOTE | 2022-06-23 11:41 | P.OP_ITS ---
Operative Note Operative Note Date of Service: 06/18/22 Narrative: Date of Service: 06/18/22 Pre-op diagnosis: left knee medial meniscus tear Post-op diagnosis: other (medial meniscus tear, lateral meniscus tear, medail compartment chondrolamalcia, high grade partial ACL tear) Procedure: Partial medial and lateral meniscectomy left knee Surgeon: Zaid Chisholm MD Anesthesia: GETA Was an Parts Consultant used for this Procedure?: No Estimated blood loss (mL): 5 Tourniquet time (min): 30 IV fluids (mL): 1,000 Pathology: none sent Condition: stable Disposition: PACU Procedure in detail: Patient was brought to the operating room placed supine on the arthroscopic table and prepped and draped in standard sterile fashion. A time-out was called to identify proper site proper procedure proper surgeon and IV antibiotics per weight were administered. I began by exsanguinating the limb and insufflating tourniquet to 300 mm Hg. Then made a standard anterolateral stab incision. knee was insufflated with water and 30 degree arthroscope was placed. There was grade 1 fibrillations of the patella but overall suprapatellar pouch was plane and the gutters were clean. I descended into the medial compartment where I made my medial portal under direct visualization. There was obvious of complex tear of the body and posterior horn of the medial meniscus. Root was intact and there was grade 2 changes with some scattered grade3 changes throughout the medial compartment. I used a combination of biter shaver and cautery to remove unstable portions of the meniscus. Approximately 40% of the meniscal volume was removed. Once I was happy with this the ACL was examined and found to be p artially intact. The AM bundle was torn and tyhere was an ampty wall sign. The ACL appeared viable however and he did not have a + pivot shift. THe lateral compartment was examined and there was a small radial tear and fraying of the anterior portion. These were debrided with a shaver. There was G1 changes of the lateral compartment. I then removed all instrumentation and closed the portals with skin glue. 25 mL of 2% Marcaine with epinephrine was injected into the joint and the surrounding soft tissues. Patient was then placed in sterile dressing extubated brought recovery room stable condition. There were no known complications.
== END 2022-06-18 16:06 | disposition home or self-care (01) ==
LOC: HO.SSS 10:00
PROVIDERS: PCP Nurse Practitioner Family; Visit Provider Orthopaedic Surgery
PROC: (CPT 29870; principal; 2022-06-18 12:10)
DX: S83.232A Complex tear of medial meniscus, current injury, left knee, initial encounter (principal); S83.272A Complex tear of lateral meniscus, current injury, left knee, initial encounter; S83.512A Sprain of anterior cruciate ligament of left knee, initial encounter; M94.262 Chondromalacia, left knee; X50.1XXA Overexertion from prolonged static or awkward postures, initial encounter; Y93.89 Activity, other specified; Y92.69 Other specified industrial and construction area as the place of occurrence of the external cause; Y99.0 Civilian activity done for income or pay; G47.33 Obstructive sleep apnea (adult) (pediatric); I10 Essential (primary) hypertension; E78.00 Pure hypercholesterolemia, unspecified; E11.9 Type 2 diabetes mellitus without complications; Z79.84 Long term (current) use of oral hypoglycemic drugs; Z79.899 Other long term (current) drug therapy; Z88.1 Allergy status to other antibiotic agents; Z88.8 Allergy status to other drugs, medicaments and biological substances; Z91.041 Radiographic dye allergy status; F17.210 Nicotine dependence, cigarettes, uncomplicated
CPT/HCPCS: 29880; 82947; J0131; J0171; J0690; J1100; J1885; J2250; J2405; J2795; J3010

== ENCOUNTER → 2022-06-23 10:47 | Outpatient (BNVA) | payer BC, SELFPAY | PROVIDERS: PCP Nurse Practitioner Family; Visit Provider Physician Assistant | DX: Z13.89 Encounter for screening for other disorder (principal) ==

== ENCOUNTER 2022-08-21 11:00 | Outpatient (RCR) | payer OTHER, BC, SELFPAY ==
--- NOTE | 2022-07-03 14:51 | MHC.PT.EP ---
[facility] [place] Office [place] Office [place] Office [address] Poli Haynes [address] [phone] F: [phone] F: [phone] F: [phone] F: [phone] Physical Therapy Plan of Care Date of Evaluation: Date of Surgery: 06/18/2022 Diagnosis: L menisectomy Assessment: Patient is a 42 year old male presenting to PT s/p L menisectomy on 06/18/2022. He presents today with impairments in pain, ROM, knee strength, hip strength, and gait mechanics. 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 Pt expresses long-term goal of returning to PLOF, and is motivated to work towards this in PT. Clinical presentation today is most consistent with signs and sx associated with s/p L menisectomy on 06/18/2022 and pt will benefit from skilled PT 2 week x 8 weeks to address the following problems and impairments noted upon evaluation: pain, ROM, knee strength, hip strength, and gait mechanics. These problems limit the patient with the following functional activities: work, ambulating, stair negotiation, ADLs, kneeling, squatting. The prescribed treatment plan of care is medically necessary. Co-morbidities of HTN, DM were identified and taken into considerations of plan of care. Pt was educated on HEP, role of PT, prognosis, POC. Frequency and Duration: The patient will be seen 2 x week x 8 weeks Short Term Goals: Pt will demonstrate improved L knee AROM to 135 in 4 weeks. Pt will demonstrate improved R knee strength to at least 4/5 in 4 weeks. Pt will demonstrate ability to ambulate with min to no antalgia in 4 weeks for improved ability to negotiate his home. Pt will demonstrate improved hip abd strength by 1/3 grade in 4 weeks for improved lumbopelvic stability. Test Developer Goals: Pt will demonstrate improved LEFI by 9 points in 8 weeks for improved functional mobility. Pt will demonstrate ability to negotiate stairs with min to no pain in 8 weeks for return to PLOF. Pt will demonstrate ability to return to work with min to no pain or limitation pending MD clearance in 8 weeks for return to work at his PLOF. Pt will demonstrate ability squat with good form and minimal to no pain in 8 weeks for return to PLOF. Treatment Plan: Modalities to reduce pain, spasms and effusion. Manual therapy to restore motion and function. Therapeutic exercise to improve strength and flexibility. Neuromuscular re-education for posture and balance. Therapeutic activities to return to functional activities of daily living. Electronically signed by: Марина Martínez, PT, DPT, ATC Please sign and return to therapist. Thank you for your referral.
--- NOTE | 2022-08-29 08:46 | MHC.PT.DC ---
[facility] [place] Office [place] Office [place] Office [address] Poli Haynes [address] [phone] F: [phone] F: [phone] F: [phone] F: [phone] Physical Therapy Discharge Report Diagnosis: L menisectomy Date of Surgery: 06/18/2022 Date of Evaluation: 07/03/22 Date of Discharge: 08/29/22 Treatments to Date: 10 Cancellations to Date: 4 No Shows to Date: 2 Discharge Status: Visit Non-compliance Discharge Summary: Pt has failed to comply with [facility] attendance policy and no showed 2 visits. His end date for insurance has also now . Pt to be d/c per policy. Electronically signed by: Марина Martínez, PT, DPT, ATC Please sign and return to therapist. Thank you for your referral.
== END 2022-08-29 08:46 | disposition home or self-care (01) ==
LOC: HO.PTCHIC 11:00
PROVIDERS: PCP Nurse Practitioner Family; Visit Provider Physician Assistant
DX: Z98.890 Other specified postprocedural states (principal); S83.207D Unspecified tear of unspecified meniscus, current injury, left knee, subsequent encounter
CPT/HCPCS: 97110; 97112; 97140; 97161; 97530

== ENCOUNTER 2023-02-01 23:41 | Emergency (ER) | payer MEDICAID, SELFPAY ==
--- NOTE | 2023-02-01 | ECG_ITS ---
Test Reason : CHEST PAIN Blood Pressure : / mmHG Vent. Rate : 101 BPM Atrial Rate : 101 BPM P-R Int : 144 ms QRS Dur : 084 ms QT Int : 340 ms P-R-T Axes : 055 029 050 degrees QTc Int : 440 ms Sinus tachycardia Nonspecific T wave abnormality Abnormal ECG When compared with ECG of 09-JUN-2013 17:41, Nonspecific T wave abnormality now evident in Inferior leads T wave amplitude has decreased in Anterolateral leads Referred By: Generic ED Physician Electronically Signed By:GAURAV DUMONT
--- NOTE | ~2023-02-01 | XR_ITS ---
EXAMINATION: XR CHEST CLINICAL INFORMATION: Chest pain. COMPARISON: 06/09/2013. TECHNIQUE: Frontal view of the chest was obtained. FINDINGS: The cardiomediastinal silhouette is normal. There is no focal lung consolidation or pleural effusion. The bony structures and soft tissues are unremarkable. XR/XR chest 1V IMPRESSION: No active cardiopulmonary disease.
--- NOTE | ~2023-02-01 | CT_ITS ---
EXAMINATION: CT HEAD WITHOUT CONTRAST CT CERVICAL WITHOUT CONTRAST CLINICAL INFORMATION: Headache. Trauma. COMPARISON: None available. TECHNIQUE: Contiguous axial imaging was performed from the skull base to vertex without intravenous administration of contrast. This CT examination was performed using dose optimization techniques as appropriate, variously including the following: *Automated exposure control *Adjustment of mA and/or kV according to patient size (this includes techniques or standardized protocols for targeted exams where dose is matched to indication/reason for exam; i.e. extremities or head) *Use of iterative reconstruction technique DLP: 1246 mGy-cm FINDINGS: The lateral, third and fourth ventricles are normally outlined. The cortical sulci and basal cisterns are normally outlined as well. There is no acute territorial defect, hemorrhage or midline shift. The extra-axial spaces are unremarkable. Calvarium: Intact. Maxillofacial sinuses and mastoids: Clear as visualized. There is apparent old fracture of the left lamina papyracea. Cervical spine: There is straightening of the expected cervical spine curvature. There is mild to moderate C5-C6 and C6-C7 disc degenerative change with loss of disc space, endplate change and posterior osteophytes associated with mild facet osteoarthritic hypertrophic change with mild spinal canal and moderate C6-C7 and mild C5-C6 neural foraminal narrowing. There is no fracture. The soft tissues are unremarkable. The visualized upper lung spears are clear. CT/CT cervical spine wo IV con IMPRESSION: No acute intracranial abnormality. C5-C6 and C6-C7 disc degenerative change. No evidence for cervical fracture.
--- NOTE | ~2023-02-01 | CT_ITS ---
EXAMINATION: CT HEAD WITHOUT CONTRAST CT CERVICAL WITHOUT CONTRAST CLINICAL INFORMATION: Headache. Trauma. COMPARISON: None available. TECHNIQUE: Contiguous axial imaging was performed from the skull base to vertex without intravenous administration of contrast. This CT examination was performed using dose optimization techniques as appropriate, variously including the following: *Automated exposure control *Adjustment of mA and/or kV according to patient size (this includes techniques or standardized protocols for targeted exams where dose is matched to indication/reason for exam; i.e. extremities or head) *Use of iterative reconstruction technique DLP: 1246 mGy-cm FINDINGS: The lateral, third and fourth ventricles are normally outlined. The cortical sulci and basal cisterns are normally outlined as well. There is no acute territorial defect, hemorrhage or midline shift. The extra-axial spaces are unremarkable. Calvarium: Intact. Maxillofacial sinuses and mastoids: Clear as visualized. There is apparent old fracture of the left lamina papyracea. Cervical spine: There is straightening of the expected cervical spine curvature. There is mild to moderate C5-C6 and C6-C7 disc degenerative change with loss of disc space, endplate change and posterior osteophytes associated with mild facet osteoarthritic hypertrophic change with mild spinal canal and moderate C6-C7 and mild C5-C6 neural foraminal narrowing. There is no fracture. The soft tissues are unremarkable. The visualized upper lung spears are clear. CT/CT head/brain wo IV con IMPRESSION: No acute intracranial abnormality. C5-C6 and C6-C7 disc degenerative change. No evidence for cervical fracture.
[2023-02-01 23:49] VITALS: BP 157/100; PULSE 104; RESP 20; TEMP 37; O2SAT 97; BMI 31.6
[2023-02-02 00:52] VITALS: BP 140/89; PULSE 97; RESP 18; O2SAT 97
--- NOTE | 2023-02-02 02:05 | ED.HEATRA ---
HPI - Head Injury General Chief complaint: Head Injury Stated complaint: Head Injury/Work Inj Time Seen by Provider: 02/02/23 02:02 Source: patient Mode of arrival: ambulatory Limitations: no limitations History of Present Illness HPI Narrative: 43-year-old male who presents emergency department for evaluation headache, dizziness, fatigue, chest pain, right arm numbness. 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 He states that he was in the back of the truck with the back door open. He states that he accidentally struck the right side of his head on the hook that was hanging down from the door. He states that he had no loss of conscious but developed immediate headache, dizziness and blurred vision in his right eye. He states that since that injury he has been having intermittent headaches which have been [id number] in severity, he has been feeling very fatigued. He states that he has been getting intermittent chest pain. He points to his sternum when asked to localize the pain, describes as pain is stabbing sensation which will last 10-20 minutes with associated right arm numbness. He states that he did have 2 episodes of chest pain yesterday that came on at rest associated with the other symptoms. Patient states that there was a changes insurance and he was not able to afford his blood pressure medication, lisinopril. He has been off this medication for 1 month. The patient's cardiac risk factors include obesity, diabetes mellitus, tobacco use. The patient states that he was golfing today and did drink alcohol and also used intranasal cocaine. Related Data Previous Rx's Medication Instructions Recorded epinephrine 0.3 mg/0.3 mL 0.3 mg (0.3 mL) IM Q10M PRN 11/14/20 injection, auto-injector (EpiPen) anaphylaxis 30 days #2 ea alcohol swabs (Alcohol Prep Pads) 1 pad topical BID #100 ea 10/08/21 blood sugar diagnostic (LiveOfficeuch #100 ea 10/08/21 Ultra Test strips) blood-glucose meter (LiveOfficeuch #1 ea 10/08/21 Ultra2 Meter kit) lancets 30 gauge (ArtisoftToMuci[employer] Delica #100 ea 10/08/21 Lancets) pantoprazole 40 mg tablet,delayed 40 mg PO DAILY 30 days #30 tabs 11/26/21 release rosuvastatin 10 mg tablet 10 mg PO BEDTIME 30 days #30 tabs 12/30/21 omega-3 acid ethyl esters 1 gram 1 cap PO BID 90 days #180 caps 01/09/22 capsule lisinopril 2.5 mg tablet 2.5 mg PO DAILY 90 days #90 tabs 05/17/22 albuterol sulfate 90 mcg/actuation 2 puff inhalation Q4-6H PRN 06/10/22 aerosol inhaler Shortness Of Breath Or Wheezing #8.5 grams empagliflozin 10 mg tablet 10 mg PO DAILY 30 days #30 tabs 06/10/22 (Jardiance) bupropion HCl 150 mg 24 hr tablet, 150 mg PO QAM 30 days #30 tabs 07/07/22 extended release (Wellbutrin XL) famotidine 40 mg tablet 40 mg PO BEDTIME #90 tabs 07/28/22 metformin 500 mg tablet,extended 1,000 mg (2 x 500 mg) PO BID 30 08/03/22 release 24 hr days #120 tabs sucralfate 1 gram tablet 1 g PO BID 30 days #60 tabs 09/08/22 Allergies Allergy/AdvReac Type Severity Reaction Status Date / Time metronidazole [From Flagyl] Allergy Severe Anaphylaxis Verified 02/01/23 23:48 varenicline [From Chantix] Allergy Severe severe Verified 02/01/23 23:48 stomach pain weird dreams bee pollen [BEE STINGS] Allergy Intermediate SWELLING Verified 02/01/23 23:48 hydromorphone [HYDROMORPHONE] Allergy Intermediate VOMITING Verified 02/01/23 23:48 barium sulfate AdvReac Severe Severe Verified 02/01/23 23:48 stomach pain SHELLFISH Allergy Severe Anaphylaxis Uncoded 02/01/23 23:48 ORANGE #5 DYE Allergy Mild HIVES Uncoded 02/01/23 23:48 Review of Systems Review of Systems: Yes all other systems are reviewed and are negative [facility] Past Medical History Attestation statement: The following information was validated with the patient. [facility] Narrative: Social history: Patient smokes 3/4 of a pack of cigarettes per day. He drinks alcohol and did drink alcohol yesterday, he denies drug use. Medical History Arthritis Elevated cholesterol Hiatal hernia HTN (hypertension) Loud snoring Low back pain PUD (peptic ulcer disease) Surgical History History of endoscopy Family History Family History Father No problems noted. Mother Diabetes mellitus Brother No problems noted. Sister No problems noted. Son No problems noted. Daughter No problems noted. Social History Social History Housing: House Are you a primary medicare coordinator to a significant other at home: No Do you presently have visiting nurse or other home services: No Alcohol intake: current Alcohol intake frequency: a few times a week Alcohol type: beer Patient Tobacco Use Status: Current everyday Tobacco user Tobacco use type: Cigarette Cigarette Packs Per Day: 1 Cigarettes Per Day: 20 Years Smoked: 11 Smoked in Last 30 Days: Yes e-Cigarette/Vaping Use: Never Used Second Hand Smoke Exposure: No Use of substances other than those prescribed or required for medical reasons: Yes Substance Use Type: Crack/Cocaine Advance Directives: No Advance Directives Information Provided: Yes service: No Current occupational status: employed Current occupation: [employer] Current occupational exposures/hazards: No Cognitive needs: No Hearing needs: No Vision needs: No Physical Exam Vital Signs: Vital Signs: Last Vital Signs Temp 98.6 F 02/01/23 23:49 Pulse 97 02/02/23 00:52 Resp 18 02/02/23 00:52 BP 140/89 H 02/02/23 00:52 Pulse Ox 97 02/02/23 00:52 O2 Del Method Room Air 02/02/23 00:52 BMI result Body Mass Index 31.6 Vital signs revealed elevated blood pressure 140/89 Exam: General: Awake, alert in no distress Head: Normocephalic, atraumatic patient does have tenderness palpation of his right temporal area, there is no hematoma or ecchymosis noted EENT: PERRL, Lids normal, sclera normal, conjunctiva normal, nose normal , ears normal, throat without erythema or exudates Neck: Supple, no adenopathy, trachea midline and nontender Lung: breath sounds symmetric, no wheezing, rales or rhonchi Chest: symmetric movement, nontender Heart: regular rate and rhythm, normal S1, S2 no murmurs or rubs Abdomen: soft, non-tender, moderate epigastric tender, normal bowel sounds Back: no vertebral tenderness, no CVAT Extremities: no deformities, moves all extremities symmetrically Skin: no rashes, no lesion, normal color and warmth Neuro: Awake, alert, oriented, normal speech, cranial nerves intact, moves all extremities symmetrically Psych: Pleasant, cooperative Medical Decision Making Medical Decision Making [facility] Narrative: 43-year-old male with history of diabetes mellitus, hypertension, occurred, tobacco use disorder, cocaine use disorder who presents emergency department for evaluation right-sided headache, chest pain, right arm pain/numb times 1 week. The patient did sustain a right sided temporal head injury 1 week prior at work. Patient has been experiencing symptoms multiple times throughout the day. Patient has been noncompliant with his lesser pill secondary to insurance issues and not being able to get his prescription. Vital signs did reveal an elevated blood pressure The patient to use intranasal cocaine yesterday. Patient's physical examination did reveal tenderness palpation of his right rastafari area and epigastric tenderness. Following evaluation was ordered: CT scan of the head and cervical spine, CBC, CMP, CK, troponin, PT/INR, PTT, chest x-ray one view. IV insertion was ordered, patient will be on a cardiac and O2 saturation monitor until completion of the workup. 0333: Patient's laboratory evaluation revealed an elevated glucose of 177-this is consistent with his diabetes and elevated CK of 510-this is most likely secondary to his cocaine use. Patient's high sensitive troponin I was below detectable limits which is reassuring. I did discuss my impression with the patient, this time I believe that the chest pain is most likely related to his head injury however told him that he should follow-up with his doctor for re-evaluation and if he has continued to have pain especially pain with exertion the a cardiac workup such as ultrasound and stress test. Differential Diagnosis Differential Diagnoses: The differential diagnosis associated with the presentation includes Differential diagnosis includes was not limited to skull fracture, intracranial bleed, myocardial infarction, myocardial injury, GERD, cocaine chest pain, musculoskeletal pain Admission/Observation Consideration of admission/observation: Escalation of care including admission/observation considered Lab Data [facility] Lab Attestation statement: I reviewed the patient's lab results. My interpretation patient's laboratory evaluation as follows: Glucose elevated 177, AST elevated 56, CK elevated 510-most likely secondary to cocaine use, troponin below detectable limits. 02/02/23 02:56 02/02/23 02:56 Labs: Lab Results 02/02/23 Range/Units 02:56 WBC 6.7 (4.8-10.8) X10*3/uL RBC 5.17 (4.60-5.80) X10*6/uL Hgb 15.6 (14.0-18.0) g/dl Hct 45.3 (42.0-52.0) % MCV 87.6 (80.0-98.0) fL MCH 30.2 (27.0-33.0) pg MCHC 34.4 (31.0-36.0) g/dl RDW 12.3 (11.0-16.0) % Plt Count 206 (160-400) X10*3/uL MPV 9.8 (9.4-12.4) fL Immature Gran % (Auto) 0.1 (0.0-0.4) % Neut % (Auto) 56.2 (45-73) % Lymph % (Auto) 35.4 (20-40) % Rusk % (Auto) 6.9 (2-11) % Eos % (Auto) 1.3 (0-4) % Baso % (Auto) 0.1 (0-2) % Lymph # (Auto) 2.4 (1.2-4.9) X10*3/uL Rusk # (Auto) 0.5 (0.1-1.2) X10*3/uL Eos # (Auto) 0.1 (0.0-0.4) X10*3/uL Baso # (Auto) 0.0 (0.0-0.2) X10*3/uL Abs Immat Gran (auto) 0.01 (0.00-0.03) X10*3/uL Absolute Neuts (auto) 3.8 (2.0-8.3) x10*3/uL Absolute Nucleated RBC 0.000 (0.0-0.012) X10*3/uL Nucleated RBC % (auto) 0.0 (0.0-0.2) /100WBC PT 11.2 (11.1-13.3) SEC INR 0.9 (0.9-1.1) APTT 30.7 (26.0-36.4) SEC Sodium 141 (135-145) mmol/L Potassium 3.6 (3.3-5.1) mmol/L Chloride 108 (96-108) mmol/L Carbon Dioxide 22 (22-29) mmol/L Anion Gap 15 (12-20) BUN 7 L (9-16) mg/dL Creatinine 0.85 (0.5-1.4) mg/dL Estim Creat Clear Calc 154.0 Estimated GFR > 60 Random Glucose 177 H (60-115) mg/dL Calcium 9.2 (8.4-10.2) mg/dL Total Bilirubin 0.4 (0.0-1.0) mg/dL AST 36 (5-37) U/L ALT 56 H (0-40) U/L Alkaline Phosphatase 92 (39-117) U/L Total Creatine Kinase 510 H (38-174) U/L Troponin I High Sens < 2.7 (<3.5-35.0) ng/L Total Protein 7.2 (6.5-8.0) g/dL Albumin 4.5 (3.5-5.0) g/dL Independent Interpretation I performed an independent interpretation of an: EKG and Plain X-Ray Interpretation: My independent interpretation the patient's 12 EKG done at 00:02 hours is as follows: Sinus tachycardia with a rate of 101, normal W[place] interval, QRS duration QTC interval, no ST segment elevation, no ST segment depression, no PACs, no PVCs, nonspecific T-wave abnormalities. My independent interpretation patient's chest x-ray is as follows: No acute disease Radiology Impression Discussion of test interpretation with radiology: I have reviewed the radiologist's reading. Radiologist Impression: CT HEAD WITHOUT CONTRAST CT CERVICAL WITHOUT CONTRAST IMPRESSION: No acute intracranial abnormality. C5-C6 and C6-C7 disc degenerative change. No evidence for cervical fracture. Dictated By: Brandin Gomez XR chest 1V IMPRESSION: No active cardiopulmonary disease. Dictated By: Brandin Gomez Discharge Plan Discharge Clinical Impression: Chest pain CHI (closed head injury) Qualifiers: Encounter type: initial encounter Qualified Code(s): S09.90XA - Unspecified injury of head, initial encounter Concussion Qualifiers: Encounter type: initial encounter Patient Disposition: Home, Self-Care Instructions: Chest Pain (ED), Concussion (ED) Additional Instructions: The CT scan of your head revealed no skull fracture bleeding in your brain which is reassuring The CT scan of your neck revealed no broken bones from your head injury Your head symptoms are consistent with a concussion can sometimes takes weeks to get completely better from a head injury/concussion. Your laboratory evaluation revealed slight elevation in your sugar but otherwise was unremarkable. Your high sensitive troponin I (marker of heart damage) was below detectable limits suggesting that you did not have a heart attack at this time, which is reassuring. However, if you developed chest pain that is coming on with exertion, shortness of breath with exertion or fatigue with exertion then you should follow-up with for further evaluation of your heart to make sure that you do not have significant heart disease. Take ibuprofen 200 mg pills, 2 pills every 6 hours as needed for pain or fever. Take Tylenol (acetaminophen) 500 mg pills, 2 pills every 6 hours as needed for pain or fever. Follow-up with your doctor in 2 days. Please return to the emergency department if your symptoms get worse or if you develop any symptoms that are concerning to you. Prescriptions: No Action epinephrine [EpiPen] 0.3 mg/0.3 mL auto-injector 0.3 mg IM Q10M PRN (Reason: anaphylaxis) 30 Days Qty: 2 0RF Rx Instructions: for 2 doses (DME) blood-glucose meter [OneTouch Ultra2 Meter] Kit See Rx Instructions .Route Qty: 1 0RF Rx Instructions: Use to check fasting blood sugar and a random blood sugar daily (DME) OneTouch Ultra Test Strip See Rx Instructions .Route Qty: 100 2RF Rx Instructions: Use to check fasting blood sugar and a random blood sugar daily (DME) lancets [OneTouch Delica Lancets] 30 gauge misc See Rx Instructions .Route Qty: 100 2RF Rx Instructions: Use to check fasting blood sugar and a random blood sugar daily alcohol swabs [Alcohol Prep Pads] Pads, Medicated 1 pad topical BID Qty: 100 2RF Rx Instructions: Use to cleanse finger tip prior to checking blood sugar rosuvastatin 10 mg tablet 10 mg PO BEDTIME 30 Days Qty: 30 2RF omega-3 acid ethyl esters 1 gram capsule 1 cap PO BID 90 Days Qty: 180 0RF lisinopril 2.5 mg tablet 2.5 mg PO DAILY 90 Days Qty: 90 0RF bupropion HCl [Wellbutrin XL] 150 mg tablet extended release 24 hr 150 mg PO QAM 30 Days Qty: 30 2RF famotidine 40 mg tablet 40 mg PO BEDTIME Qty: 90 0RF metformin 500 mg tablet extended release 24 hr 1,000 mg PO BID 30 Days Qty: 120 2RF sucralfate 1 gram tablet 1 g PO BID 30 Days Qty: 60 1RF Jardiance 10 mg tablet 10 mg PO DAILY 30 Days Qty: 30 3RF albuterol sulfate 90 mcg/actuation HFA aerosol inhaler 2 puff inhalation Q4-6H PRN (Reason: Shortness Of Breath Or Wheezing) Qty: 8.5 3RF pantoprazole 40 mg tablet,delayed release (DR/EC) 40 mg PO DAILY 30 Days Qty: 30 11RF
[2023-02-02 03:02] LABS: Basophils Percent Auto 0.1 % (0-2); Eosinophils Absolute Auto 0.1 X10*3/uL (0.0-0.4); Eosinophils Percent Auto 1.3 % (0-4); Hematocrit 45.3 % (42.0-52.0); Hemoglobin 15.6 g/dl (14.0-18.0); Imm Gran Abs Auto 0.01 X10*3/uL (0.00-0.03); Imm Gran Pct Auto 0.1 % (0.0-0.4); Lymphocytes Absolute Auto 2.4 X10*3/uL (1.2-4.9); Lymphocytes Percent Auto 35.4 % (20-40); MANUAL DIFF FLAG NO; Mean Corpuscular HGB Conc 34.4 g/dl (31.0-36.0); Mean Corpuscular Hemoglobin 30.2 pg (27.0-33.0); Mean Corpuscular Volume 87.6 fL (80.0-98.0); Mean Platelet Volume 9.8 fL (9.4-12.4); Monocytes Absolute Auto 0.5 X10*3/uL (0.1-1.2); Monocytes Percent Auto 6.9 % (2-11); Neutrophils Absolute Auto 3.8 x10*3/uL (2.0-8.3); Neutrophils Percent Auto 56.2 % (45-73); Platelet Count 206 X10*3/uL (160-400); Red Blood Count 5.17 X10*6/uL (4.60-5.80); Red Cell Distribution Width 12.3 % (11.0-16.0); White Blood Count 6.7 X10*3/uL (4.8-10.8)
[2023-02-02 03:11] LABS: INTERNATIONAL NORM RATIO 0.9 (0.9-1.1); Prothrombin Time 11.2 SEC (11.1-13.3)
[2023-02-02 03:14] LABS: Partial Thromboplastin Time 30.7 SEC (26.0-36.4)
[2023-02-02 03:16] LABS: Alanine Aminotransferase 56 U/L (0-40); Albumin Level 4.5 g/dL (3.5-5.0); Alkaline Phosphatase 92 U/L (39-117); Anion Gap 15 (12-20); Aspartate Amino Transferase 36 U/L (5-37); Bilirubin Total 0.4 mg/dL (0.0-1.0); Blood Urea Nitrogen 7 mg/dL (9-16); Calcium 9.2 mg/dL (8.4-10.2); Carbon Dioxide 22 mmol/L (22-29); Chloride 108 mmol/L (96-108); Estimated Glomerular Filt Rate > 60; Glucose Random 177 mg/dL (60-115); Potassium 3.6 mmol/L (3.3-5.1); Sodium 141 mmol/L (135-145); Total Protein 7.2 g/dL (6.5-8.0)
[2023-02-02 03:24] LABS: Troponin-I High Sensitivity < 2.7 ng/L (<3.5-35.0)
== END 2023-02-02 03:57 | disposition home or self-care (01) ==
PROVIDERS: Emergency Provider Emergency Medicine Emergency Medical Services; PCP Nurse Practitioner Family
DX: S09.90XA Unspecified injury of head, initial encounter (principal); R07.89 Other chest pain; I10 Essential (primary) hypertension; R51.9 Headache, unspecified; M54.2 Cervicalgia; F17.200 Nicotine dependence, unspecified, uncomplicated; Y29.XXXA Contact with blunt object, undetermined intent, initial encounter; Y93.9 Activity, unspecified; Y92.9 Unspecified place or not applicable; Y99.0 Civilian activity done for income or pay; Z71.6 Tobacco abuse counseling; Z79.899 Other long term (current) drug therapy
CPT/HCPCS: 36415; 70450; 71045; 72125; 80053; 82550; 84484; 85025; 85610; 85730; 93005; 99284; 99285

== ENCOUNTER 2023-04-28 13:02 | Outpatient (AMB) | payer SELFPAY ==
--- NOTE | 2023-04-28 13:45 | MHC.OFFWIV ---
Intake Vital Signs 04/28/23 13:46 Height 6 ft 4 in Weight 115.212 kg BMI 30.9 BP 118/60 Blood Pressure Location Rt brachial Position Sitting Pulse 77 Pulse Source Pulse Oximeter Temp 97.5 F Temp Source Temporal Artery Scan Pulse Oximetry (%) 98 Oxygen Delivery Method Room Air Intake Visit Reasons: EST/right eye pain/lobby Intake Note: pt is here today for rt eye pain started thursday Patient Tobacco Use Status: Current everyday Tobacco user Allergies metronidazole [From Flagyl] Allergy (Severe, Verified 04/28/23 13:46) Anaphylaxis varenicline [From Chantix] Allergy (Severe, Verified 04/28/23 13:46) severe stomach pain weird dreams bee pollen [BEE STINGS] Allergy (Intermediate, Verified 04/28/23 13:46) SWELLING hydromorphone [HYDROMORPHONE] Allergy (Intermediate, Verified 04/28/23 13:46) VOMITING barium sulfate Adverse Reaction (Severe, Verified 04/28/23 13:46) Severe stomach pain SHELLFISH Allergy (Severe, Uncoded 02/01/23 23:48) Anaphylaxis ORANGE #5 DYE Allergy (Mild, Uncoded 02/01/23 23:48) HIVES Do you need a note to return to daycare/school/sports/work: Yes HPI HPI Comments History of Present Illness Details 1417 43 year old male presents w/ right sided eye pain sudden onset at 0400 on thursday morning after awakening. Patient reports times of exruciating pain that is intermittently excruciating. Patient reports when this 1st happened his eye turned completely ride and was very painful. Has been having episodes of intermittent severe pain, reports he has not been able to sleep in 3 nights. Denies associated trauma. However he does mention he has not been med compliant for the past few weeks with his diabetes or hypertensive meds as he has new insurance and his medications were not covered. His vision does not seem right he tells me, slightly blurred to his right eye/frothy. Bilateral pupillary response however right eye slower than left. Extraocular movements intact and pain-free. No overlying erythema or warmth of orbits bilaterally. History and physical concerning for possible glaucoma versus arterial or venous occlusion. I do not have access to a cecily pen heree in the walk-in clinic, patient will likely need to be assess in a facility with higher level of care/Ophthalmology. Patient will go to [facility] for further management 1428 Reached out to Ophthalmology office, they will review patient case and determine whether not they can see him today if not patient to go to the emergency department will keep him here into they decide [facility] Medical History Elevated cholesterol HTN (hypertension) Arthritis Low back pain Loud snoring Hiatal hernia PUD (peptic ulcer disease) Surgical History History of endoscopy Family History Father No problems noted. Mother Diabetes mellitus Brother No problems noted. Sister No problems noted. Son No problems noted. Daughter No problems noted. 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 Current occupational exposures/hazards: No Cognitive needs: No Hearing needs: No Vision needs: No Review of Systems Const Details: Constitutional : No Weight loss, No Fever, No Chills, No Fatigue, No Malaise ENT/Mouth : No sore throat, No Rhinorrhea Eyes: + Eye Pain, No Swelling, + Redness Cardiovascular : No Chest Pain, No SOB, No Dyspnea on Exertion, No Orthopnea, No Edema, No Palpitations Respiratory : No Cough, No Sputum, No Wheezing Gastrointestinal : No Nausea, No Vomiting, No Diarrhea, No Constipation, No abdominal Pain, No Hematochezia, No Melena Genitourinary : No Dysuria, No Urinary Frequency, No Hematuria, Musculoskeletal : No joint pain, No Myalgias, No Joint Swelling Skin : No Skin Lesions, No rash Neuro : No Weakness, No Numbness, No Dizziness, No Headache Psych : No Anxiety/Panic, No Depression All other systems reviewed and are negative All systems reviewed & are unremarkable except as noted in HPI and below Physical Exam Vital Signs: Last Vital Signs Temp 97.5 F 04/28/23 13:46 Pulse 77 04/28/23 13:46 BP 118/60 04/28/23 13:46 Pulse Ox 98 04/28/23 13:46 Oxygen Delivery Method Room Air 04/28/23 13:46 BMI result Body Mass Index 30.9 vss Appearance: Alert.? Oriented X3.? No acute distress.? Head: Normocephalic, atraumatic, no step-offs or deformities Eyes: Bilateral pupillary response however right eye slower than left. Extraocular movements intact and pain-free. No overlying erythema or warmth of orbits bilaterally. Neck: Normal inspection.? Neck supple.? CVS: Normal heart rate and rhythm.? Pulses normal.? Respiratory: No respiratory distress.? Breath sounds normal.? Abdomen: Soft and nontender.? Skin: Skin warm and dry.? Normal skin color.? Normal skin turgor.? Extremities: No lower extremity edema.? No calf ttp. 5/5 strength to bilateral upper and lower extremities Neuro: Oriented X 3.? No motor deficit.? No sensory deficit. CN 2-12 intact Assessment & Plan Assessment & Plan (1) Eye pain: Code(s): H57.10 - Ocular pain, unspecified eye Plan Take your medications as prescribed. If you were prescribed antibiotics today, it is important that you take your medication to their entirety, do not skip any doses, do not finish them early. Follow-up with your primary care provider this week. Return to the emergency department with new or worsening symptoms. Such as fevers, chills, chest pain, shortness of breath, nausea, vomiting, dizziness, headache, vision changes, lethargy In case of emergency call 911 Coding Level of Care Code Est Pt Level 3 (32252) Diagnoses Eye pain H57.10
[2023-04-28 13:46] VITALS: BP 118/60; PULSE 77; TEMP 36.4; O2SAT 98; BMI 30.9
== END 2023-04-28 15:30 | disposition home or self-care (01) ==
PROVIDERS: PCP Nurse Practitioner Family; Visit Provider Physician Assistant
DX: H57.10 Ocular pain, unspecified eye (principal)
CPT/HCPCS: 99213

== ENCOUNTER 2023-06-17 13:50 | Outpatient (AMB) | payer OTHER, SELFPAY ==
--- NOTE | 2023-06-17 13:58 | AM.OFFWIN_ITS ---
Intake Vital Signs 06/17/23 14:01 Height 6 ft 4 in Weight 263 lb BMI 32.0 BP 130/90 H Blood Pressure Location Lt brachial Position Sitting Pulse 84 Pulse Source Pulse Oximeter Temp 97.7 F Temp Source Temporal Artery Scan Pulse Oximetry (%) 96 Oxygen Delivery Method Room Air Intake Visit Reasons: EP slipped down stairs entire back pain Intake Note: pt is here today for slipped down stairs started thursday Patient Tobacco Use Status: Current everyday Tobacco user Allergies metronidazole [From Flagyl] Allergy (Severe, Verified 06/17/23 14:09) Anaphylaxis varenicline [From Chantix] Allergy (Severe, Verified 06/17/23 14:09) severe stomach pain weird dreams bee pollen [BEE STINGS] Allergy (Intermediate, Verified 06/17/23 14:09) SWELLING hydromorphone [HYDROMORPHONE] Allergy (Intermediate, Verified 06/17/23 14:09) VOMITING barium sulfate Adverse Reaction (Severe, Verified 06/17/23 14:09) Severe stomach pain SHELLFISH Allergy (Severe, Uncoded 02/01/23 23:48) Anaphylaxis ORANGE #5 DYE Allergy (Mild, Uncoded 02/01/23 23:48) HIVES Do you need a note to return to daycare/school/sports/work: Yes HPI HPI Comments History of Present Illness Details This is a 43-year-old male with past medical history ajp-etlnojz-hezsshtep diabetes, hypertension, asthma gastroesophageal reflux disease presenting for evaluation of back pain. Patient states on Thursday slipped down his exterior 5 steps on his back. Patient denies any head injury or loss of consciousness and was able to get up independently thereafter. Patient has not taken any mnue-sbq-qtredwp medication for treatment of his pain. Patient is reporting and dull and aching back pain that radiates from his right posterior shoulder to his lumbar region. Patient denies any hematuria, loss of bladder or bowel function and no radiation of pain into his lower extremities. Patient is also requesting refills on his maintenance medications. [facility] Medical History Elevated cholesterol HTN (hypertension) Arthritis Low back pain Loud snoring Hiatal hernia PUD (peptic ulcer disease) Surgical History History of endoscopy Family History Father No problems noted. Mother Diabetes mellitus Brother No problems noted. Sister No problems noted. Son No problems noted. Daughter No problems noted. 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 Current occupational exposures/hazards: No Cognitive needs: No Hearing needs: No Vision needs: No Review of Systems Const All systems reviewed & are unremarkable except as noted in HPI and below Eyes Reports no additional complaints ENT Reports no additional complaints Card Reports no additional complaints Musc Reports back pain and Reports arthralgias (right shoulder) Skin/Breast Reports system reviewed and no additional complaints, except as documented Neuro Reports no additional complaints Physical Exam Vital Signs: Last Vital Signs Temp 97.7 F 06/17/23 14:01 Pulse 84 06/17/23 14:01 BP 130/90 H 06/17/23 14:01 Pulse Ox 96 06/17/23 14:01 Oxygen Delivery Method Room Air 06/17/23 14:01 BMI result Body Mass Index 32.0 Const General: cooperative, healthy appearing, comfortable, no acute distress, well developed, alert and awake Nutritional Appearance: average body habitus Orientation/consciousness: patient oriented x3 Limitations: no limitations Back/Spine/Pelvis Cervical Spine: cervical ROM normal, No cervical muscular tenderness, No pain with cervical ROM and No Cervical spine tenderness Thoracic/Lumbar Spine: thoracic and lumbar spine normal to inspection, straight leg raise negative bilaterally, paraspinal muscle tenderness on the right greater than left, No thoracic spinal tenderness and No lumbar spinal tenderness Sacroiliac joints: bilaterally nontender Sacrum: no ecchymosis and no tenderness Skin General skin exam: no rashes or lesions noted Neuro General: patient oriented x3 Gait exam (Neuro): Normal gait present Extrem General: Yes normal to inspection Right upper extremity: full ROM (passive ROM right shoulder intact; no clavicular tenderness bilaterally) and shoulder/upper arm Details: normal to inspection and tenderness (posterior right deltoid) Psych Appearance: grossly normal Mental Status: mental status grossly normal Insight: Good insight present (Psych) Judgement: Good judgement present (Psych) Assessment & Plan Assessment & Plan (1) Muscle strain of right upper back: Comment: There is no vertebral tenderness on examination and therefore imaging is deferred at this time. Code(s): S29.012A - Strain of muscle and tendon of back wall of thorax, initial encounter Qualifiers: Encounter type: initial encounter Qualified Code(s): S29.012A - Strain of muscle and tendon of back wall of thorax, initial encounter Plan: Naprosyn b.i.d. and Robaxin every 8 hours. Patient will follow up with his primary care provider within 10 days for a re-evaluation of his injuries. (2) Right shoulder strain: Comment: No imaging is warranted given his history coupled with his physical examination. Code(s): S46.911A - Strain of unspecified muscle, fascia and tendon at shoulder and upper arm level, right arm, initial encounter Qualifiers: Encounter type: initial encounter Qualified Code(s): S46.911A - Strain of unspecified muscle, fascia and tendon at shoulder and upper arm level, right arm, initial encounter Plan: Naprosyn b.i.d. and Robaxin every 8 hours. Patient will follow up with his primary care provider within 10 days for a re-evaluation of his injuries and a possible referral for physical therapy evaluation as needed. Plan Maintenance medications are refilled for 90 days with no refills. Medications: New methocarbamol 750 mg PO Q8H 30 tabs 0RF bupropion HCl (Wellbutrin XL) 150 mg PO QAM 90 tabs 0RF rosuvastatin 10 mg PO .qhs 90 tabs 0RF naproxen (Naprosyn) 500 mg PO BID 20 tabs 0RF empagliflozin (Jardiance) 10 mg PO DAILY 90 tabs 0RF sucralfate 1 g PO BID 180 tabs 0RF famotidine 40 mg PO BEDTIME 90 tabs 0RF pantoprazole 40 mg PO DAILY 90 tabs 0RF Coding Level of Care Code Est Pt Level 4 (25608) Diagnoses Muscle strain of right upper back, initial encounter S29.012A Encounter type: initial encounter Strain of right shoulder, initial encounter S46.911A Encounter type: initial encounter Time Spent (min) 35
[2023-06-17 14:01] VITALS: BP 130/90; PULSE 84; TEMP 36.5; O2SAT 96; BMI 32.0
== END 2023-06-17 14:34 | disposition home or self-care (01) ==
PROVIDERS: PCP Nurse Practitioner Family; Visit Provider Physician Assistant
DX: S29.012A Strain of muscle and tendon of back wall of thorax, initial encounter (principal); S46.911A Strain of unspecified muscle, fascia and tendon at shoulder and upper arm level, right arm, initial encounter
CPT/HCPCS: 99214

== ENCOUNTER 2023-07-09 12:34 | Outpatient (AMB) | payer OTHER, SELFPAY ==
[2023-07-09 12:39] VITALS: BP 130/80; PULSE 82; TEMP 36.8; O2SAT 98; BMI 32.0
--- NOTE | 2023-07-09 12:39 | MHC.OFFWIV ---
Intake Vital Signs 07/09/23 12:39 Height 6 ft 4 in Weight 263 lb BMI 32.0 BP 130/80 Blood Pressure Location Rt brachial Position Sitting Pulse 82 Pulse Source Pulse Oximeter Temp 98.2 F Temp Source Oral Pulse Oximetry (%) 98 Oxygen Delivery Method Room Air Intake Visit Reasons: EP sore throat ear pain Intake Note: pt is here for sore throat and bilateral ear pain Patient Tobacco Use Status: Current everyday Tobacco user Allergies metronidazole [From Flagyl] Allergy (Severe, Verified 07/09/23 12:40) Anaphylaxis varenicline [From Chantix] Allergy (Severe, Verified 07/09/23 12:40) severe stomach pain weird dreams bee pollen [BEE STINGS] Allergy (Intermediate, Verified 07/09/23 12:40) SWELLING hydromorphone [HYDROMORPHONE] Allergy (Intermediate, Verified 07/09/23 12:40) VOMITING barium sulfate Adverse Reaction (Severe, Verified 07/09/23 12:40) Severe stomach pain SHELLFISH Allergy (Severe, Uncoded 02/01/23 23:48) Anaphylaxis ORANGE #5 DYE Allergy (Mild, Uncoded 02/01/23 23:48) HIVES Do you need a note to return to daycare/school/sports/work: Yes HPI HPI Comments History of Present Illness Details 43 y/o male patient who presents to walk in clinic with c/o Sore-throat and bilateral ear pain for few days now. Denies fevers, chills, nausea or vomiting. PFSH Medical History Elevated cholesterol HTN (hypertension) Arthritis Low back pain Loud snoring Hiatal hernia PUD (peptic ulcer disease) Surgical History History of endoscopy Family History Father No problems noted. Mother Diabetes mellitus Brother No problems noted. Sister No problems noted. Son No problems noted. Daughter No problems noted. 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 Current occupational exposures/hazards: No Cognitive needs: No Hearing needs: No Vision needs: No Review of Systems Const All systems reviewed & are unremarkable except as noted in HPI and below Physical Exam Vital Signs: Last Vital Signs Temp 98.2 F 07/09/23 12:39 Pulse 82 07/09/23 12:39 BP 130/80 07/09/23 12:39 Pulse Ox 98 07/09/23 12:39 Oxygen Delivery Method Room Air 07/09/23 12:39 BMI result Body Mass Index 32.0 Const General: comfortable and no acute distress HEENT Head: Yes normocephalic Ears: external ears normal and TM's normal bilaterally General nose exam: Abnormal mucous membranes and turbinates present boggy and erythematous Face and sinus: Yes sinuses nontender Mouth: moist mucous membranes Throat: Yes posterior oropharynx normal Resp Effort & Inspection: normal respiratory effort and able to speak in complete sentences Auscultation: clear to auscultation bilaterally Cardio Rate: regular rate Rhythm: regular rhythm Results AMB Rapid Strep AMB Rapid Strep Negative Last Edit by Salvador Venegas CMA on 07/09/23 12:52 Results Reviewed Results Reviewed: Laboratory Last Values Strep Scn Rapid Clinic Negative 07/09/23 12:52 Assessment & Plan Assessment & Plan (1) Acute pharyngitis: Code(s): J02.9 - Acute pharyngitis, unspecified Qualifiers: Pharyngitis/tonsillitis etiology: other specified organisms Qualified Code(s): J02.8 - Acute pharyngitis due to other specified organisms Plan: - Warm fluids with honey - Rest - Acetaminophen for pain relief - OTC cough/cold remedies Orders: Orders AMB Rapid Strep Screen Today Z13.9 - Encounter for screening, unspecified SARS-CoV2/FLU/RSV Today J02.8 - Acute pharyngitis due to other specified organisms, R09.89 - Other specified symptoms and signs involving the circulatory and respiratory systems Medications: New benzonatate 100 mg PO TID 30 caps 0RF J02.8 - Acute pharyngitis due to other specified organisms Coding Level of Care Code Est Pt Level 3 (22001) Diagnoses Acute pharyngitis due to other specified organisms J02.8 Pharyngitis/tonsillitis etiology: other specified organisms Time Spent (min) 15
== END 2023-07-09 13:40 | disposition home or self-care (01) ==
PROVIDERS: PCP Nurse Practitioner Family; Visit Provider Nurse Practitioner Family
DX: J02.8 Acute pharyngitis due to other specified organisms (principal)
CPT/HCPCS: 87880; 99213

== ENCOUNTER 2023-07-09 12:56 | Outpatient (REF) | payer OTHER, SELFPAY ==
[2023-07-09 17:37] LABS: Influenza A PCR NEGATIVE (Negative); Influenza B PCR NEGATIVE (Negative); Resp Syncy Virus RNA Qual PCR NEGATIVE (Negative); SARS COV2 PCR INHOUSE NEGATIVE (Negative)
== END 2023-07-09 12:57 | disposition home or self-care (01) ==
LOC: HO.LAB 12:56
PROVIDERS: Visit Provider Nurse Practitioner Family
DX: R09.89 Other specified symptoms and signs involving the circulatory and respiratory systems (principal); J02.8 Acute pharyngitis due to other specified organisms; Z11.52 Encounter for screening for COVID-19; Z20.828 Contact with and (suspected) exposure to other viral communicable diseases
CPT/HCPCS: 0241U

== ENCOUNTER 2023-07-14 08:21 | Outpatient (AMB) | payer OTHER, SELFPAY ==
--- NOTE | 2023-07-14 08:59 | MHC.OFFWIV ---
Intake Vital Signs 07/14/23 09:00 07/14/23 09:31 Height 6 ft 4 in Weight 263 lb BMI 32.0 BP 142/88 H 132/88 Blood Pressure Location Lt brachial Rt brachial Position Sitting Pulse 97 Pulse Source Pulse Oximeter Temp 98.6 F Temp Source Temporal Artery Scan Pulse Oximetry (%) 98 Oxygen Delivery Method Room Air Intake Visit Reasons: EP vomiting chest/ear pain sore throat [id number] Intake Note: pt is here for a sore throat since last Thurs with vomiting hurts to swallow shooting pain in both ears with sob Patient Tobacco Use Status: Current everyday Tobacco user Allergies metronidazole [From Flagyl] Allergy (Severe, Verified 07/14/23 09:02) Anaphylaxis varenicline [From Chantix] Allergy (Severe, Verified 07/14/23 09:02) severe stomach pain weird dreams bee pollen [BEE STINGS] Allergy (Intermediate, Verified 07/14/23 09:02) SWELLING hydromorphone [HYDROMORPHONE] Allergy (Intermediate, Verified 07/14/23 09:02) VOMITING barium sulfate Adverse Reaction (Severe, Verified 07/14/23 09:02) Severe stomach pain SHELLFISH Allergy (Severe, Uncoded 07/14/23 09:02) Anaphylaxis ORANGE #5 DYE Allergy (Mild, Uncoded 07/14/23 09:02) HIVES Do you need a note to return to daycare/school/sports/work: Yes HPI HPI Comments History of Present Illness Details Patient is a 43-year-old male in for a sick visit. He has a past medical history significant for diabetes type 2, GERD, hypertension. Patient states that he has young children at home that have similar symptoms. Taken fklr-lxj-vmaepop medicine with little relief. Patient states he tried to go back to work, which is physically demanding, started to feel nauseous, had 1 episode of vomiting. Patient's primary concern today is sore throat, ear pain. Denies shortness of breath, chest pain, dizziness, nausea, diarrhea. [facility] Medical History Elevated cholesterol HTN (hypertension) Arthritis Low back pain Loud snoring Hiatal hernia PUD (peptic ulcer disease) Surgical History History of endoscopy Family History Father No problems noted. Mother Diabetes mellitus Brother No problems noted. Sister No problems noted. Son No problems noted. Daughter No problems noted. 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 Eyes: No Eye Pain, No Swelling, No Redness Cardiovascular : No Chest Pain, No SOB, No Dyspnea on Exertion, No Orthopnea, No Edema, No Palpitations Respiratory : Admits Cough, No Sputum, No Wheezing Gastrointestinal : No Nausea, Admits one episode pf Vomiting, No Diarrhea, No Constipation, No abdominal Pain, No Hematochezia, No Melena Neuro : No Weakness, No Numbness, No Dizziness, No Headache Psych : No Anxiety/Panic, No Depression All other systems reviewed and are negative Physical Exam Vital Signs: Last Vital Signs Temp 98.6 F 07/14/23 09:00 Pulse 97 07/14/23 09:00 BP 142/88 H 07/14/23 09:00 Pulse Ox 98 07/14/23 09:00 Oxygen Delivery Method Room Air 07/14/23 09:00 BMI result Body Mass Index 32.0 Const Other: Appearance: Alert.? Oriented X3.? No acute distress.? Head: Normocephalic, atraumatic. Eyes: Pupils equal, round and reactive to light.? ENT: Pharynx erythema and cobblestone. TM intact, erythema and effusion bilaterally. Neck: Normal inspection.? Neck supple.? CVS: Normal heart rate and rhythm.? Pulses normal.? Respiratory: No respiratory distress.? Breath sounds normal.? Neuro: Oriented X 3.? No motor deficit.? No sensory deficit. CN 2-12 intact Assessment & Plan Assessment & Plan (1) Bilateral otitis media: Comment: Patient has bilateral otitis media. Will give Augmentin to be taken as directed. Will give prednisone to be taken as directed. Patient has been educated on the side effects of these medications. Due to patient's episode of vomiting will draw CMP/CBC. Patient states he has been able to hold down fluids and he only had 1 episode of vomiting. Will also draw upper respiratory swab. Code(s): H66.93 - Otitis media, unspecified, bilateral Qualifiers: Otitis media type: unspecified Qualified Code(s): H66.93 - Otitis media, unspecified, bilateral Plan: Take your medications as prescribed. If you were prescribed antibiotics today, it is important that you take your medication to their entirety, do not skip any doses, do not finish them early. Follow-up with your primary care provider this week. Return to the emergency department with new or worsening symptoms. Such as fevers, chills, chest pain, shortness of breath, nausea, vomiting, dizziness, headache, vision changes, lethargy In case of emergency call 911 Plan Patient also requested refill of lisinopril. Will refill, patient encouraged to follow-up PCP. Coding Level of Care Code Est Pt Level 3 (29981) Diagnoses Bilateral otitis media, unspecified otitis media type H66.93 Otitis media type: unspecified Time Spent (min) 25
[2023-07-14 09:00] VITALS: BP 142/88; PULSE 97; TEMP 37; O2SAT 98; BMI 32.0
[2023-07-14 09:31] VITALS: BP 132/88
== END 2023-07-14 09:36 | disposition home or self-care (01) ==
PROVIDERS: PCP Nurse Practitioner Family; Visit Provider Nurse Practitioner Primary Care
DX: H66.93 Otitis media, unspecified, bilateral (principal)
CPT/HCPCS: 99213

== ENCOUNTER 2023-07-14 09:32 | Outpatient (REF) | payer OTHER, SELFPAY ==
[2023-07-14 10:23] LABS: MANUAL DIFF FLAG NO
[2023-07-14 10:34] LABS: Basophils Percent Auto 0.3 % (0-2); Eosinophils Absolute Auto 0.3 X10*3/uL (0.0-0.4); Eosinophils Percent Auto 3.9 % (0-4); Hemoglobin 16.6 g/dl (14.0-18.0); Imm Gran Abs Auto 0.06 X10*3/uL (0.00-0.03); Imm Gran Pct Auto 0.8 % (0.0-0.4); Lymphocytes Absolute Auto 2.1 X10*3/uL (1.2-4.9); Lymphocytes Percent Auto 29.5 % (20-40); Mean Corpuscular HGB Conc 34.6 g/dl (31.0-36.0); Mean Corpuscular Hemoglobin 30.1 pg (27.0-33.0); Mean Platelet Volume 9.8 fL (9.4-12.4); Monocytes Absolute Auto 0.7 X10*3/uL (0.1-1.2); Monocytes Percent Auto 9.5 % (2-11); Neutrophils Absolute Auto 4.1 x10*3/uL (2.0-8.3); Platelet Count 243 X10*3/uL (160-400); Red Blood Count 5.52 X10*6/uL (4.60-5.80); Red Cell Distribution Width 11.9 % (11.0-16.0); White Blood Count 7.2 X10*3/uL (4.8-10.8)
[2023-07-14 11:57] LABS: Alanine Aminotransferase 97 U/L (0-40); Albumin Level 4.7 g/dL (3.5-5.0); Alkaline Phosphatase 121 U/L (39-117); Anion Gap 14 (12-20); Aspartate Amino Transferase 49 U/L (5-37); Bilirubin Total 0.5 mg/dL (0.0-1.0); Blood Urea Nitrogen 15 mg/dL (9-16); Calcium 10.2 mg/dL (8.4-10.2); Carbon Dioxide 26 mmol/L (22-29); Chloride 101 mmol/L (96-108); Estimated Glomerular Filt Rate > 60; Glucose Random 243 mg/dL (60-115); Potassium 4.1 mmol/L (3.3-5.1); Sodium 137 mmol/L (135-145); Total Protein 8.1 g/dL (6.5-8.0)
[2023-07-14 12:53] LABS: Influenza A PCR NEGATIVE (Negative); Influenza B PCR NEGATIVE (Negative); Resp Syncy Virus RNA Qual PCR NEGATIVE (Negative); SARS COV2 PCR INHOUSE NEGATIVE (Negative)
== END 2023-07-14 09:33 | disposition home or self-care (01) ==
LOC: HO.HMGCLDS 09:32
PROVIDERS: PCP Nurse Practitioner Family; Visit Provider Nurse Practitioner Primary Care
DX: Z11.52 Encounter for screening for COVID-19 (principal); Z20.822 Contact with and (suspected) exposure to COVID-19; Z13.0 Encounter for screening for diseases of the blood and blood-forming organs and certain disorders involving the immune mechanism; J06.9 Acute upper respiratory infection, unspecified; Z91.09 Other allergy status, other than to drugs and biological substances
CPT/HCPCS: 0241U; 36415; 80053; 85025

== ENCOUNTER 2023-07-20 09:44 | Outpatient (AMB) | payer OTHER, SELFPAY ==
--- NOTE | 2023-07-20 11:00 | MHC.OFFWIV ---
Intake Vital Signs 07/20/23 11:07 Weight 262 lb BP 140/90 H Blood Pressure Location Rt brachial Position Sitting Pulse 87 Pulse Source Pulse Oximeter Temp 97.5 F Temp Source Oral Pulse Oximetry (%) 98 Oxygen Delivery Method Room Air Intake Visit Reasons: EST/back pain & nausea ([phone]) Intake Note: Patient here for lower back pain and nausea that started yesterday. Patient Tobacco Use Status: Current everyday Tobacco user Allergies metronidazole [From Flagyl] Allergy (Severe, Verified 07/20/23 11:24) Anaphylaxis varenicline [From Chantix] Allergy (Severe, Verified 07/20/23 11:24) severe stomach pain weird dreams bee pollen [BEE STINGS] Allergy (Intermediate, Verified 07/20/23 11:24) SWELLING hydromorphone [HYDROMORPHONE] Allergy (Intermediate, Verified 07/20/23 11:24) VOMITING barium sulfate Adverse Reaction (Severe, Verified 07/20/23 11:24) Severe stomach pain SHELLFISH Allergy (Severe, Uncoded 07/20/23 11:24) Anaphylaxis ORANGE #5 DYE Allergy (Mild, Uncoded 07/20/23 11:24) HIVES Medication List - Last Reconciled 07/20/23 by Kana Campuzano MD albuterol sulfate 90 mcg/actuation 2 puffs inhalation Q4-6H PRN alcohol swabs (Alcohol Prep Pads) 1 pad topical BID amoxicillin-pot clavulanate 875-125 mg 1 tab PO Q12H blood sugar diagnostic ([employer] Ultra Test strips) Use to check fasting blood sugar and a random blood sugar daily blood-glucose meter ([employer] Ultra2 Meter kit) Use to check fasting blood sugar and a random blood sugar daily bupropion HCl (Wellbutrin XL) 150 mg PO QAM famotidine 40 mg PO BEDTIME lancets ([employer] Delica Lancets) Use to check fasting blood sugar and a random blood sugar daily lisinopril 2.5 mg PO DAILY 90 days metformin ER 1,000 mg (2 x 500 mg) PO BID 30 days pantoprazole 40 mg PO DAILY prednisone 20 mg PO DAILY rosuvastatin 10 mg PO .qhs sucralfate 1 g PO BID Do you need a note to return to daycare/school/sports/work: Yes HPI EST/back pain & nausea ([phone]) HPI Details 43-year-old male presents to the office for a sick visit. Patient is reporting low back pain for the past 2 days. No history of fall or injury prior to the onset of symptoms. Pain is worse on bending forwards or sideways. No radiation below the hip. No urinary difficulty. [facility] Medical History Elevated cholesterol HTN (hypertension) Arthritis Low back pain Loud snoring Hiatal hernia PUD (peptic ulcer disease) Surgical History History of endoscopy Family History Father No problems noted. Mother Diabetes mellitus Brother No problems noted. Sister No problems noted. Son No problems noted. Daughter No problems noted. 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 Assessment & Plan Assessment & Plan (1) Lower back injury: Code(s): S39.92XA - Unspecified injury of lower back, initial encounter Plan Urinalysis reviewed by me. Anti-inflammatories and muscle relaxant called. Orders: Orders AMB Urinalysis Automated Today Z13.9 - Encounter for screening, unspecified Coding Level of Care Code Est Pt Level 3 (52016) Diagnoses Lower back injury S39.92XA
[2023-07-20 11:07] VITALS: BP 140/90; PULSE 87; TEMP 36.4; O2SAT 98
== END 2023-07-20 12:04 | disposition home or self-care (01) ==
PROVIDERS: PCP Nurse Practitioner Family; Visit Provider Internal Medicine
DX: S39.92XA Unspecified injury of lower back, initial encounter (principal)
CPT/HCPCS: 81003; 99213

== ENCOUNTER 2023-09-28 10:22 | Outpatient (AMB) | payer OTHER, SELFPAY ==
--- NOTE | 2023-09-28 10:28 | MHC.OFFWIV ---
Intake Vital Signs 09/28/23 10:38 Height 6 ft 4 in BP 132/80 Blood Pressure Location Rt brachial Position Sitting Pulse 83 Pulse Source Pulse Oximeter Temp 97.8 F Temp Source Oral Pulse Oximetry (%) 98 Oxygen Delivery Method Room Air Intake Visit Reasons: EP left knee popped moving dresser 09/27/23 Intake Note: pt is here for left knee popped out while moving a dresser at home Patient Tobacco Use Status: Current everyday Tobacco user Allergies metronidazole [From Flagyl] Allergy (Severe, Verified 09/28/23 10:38) Anaphylaxis varenicline [From Chantix] Allergy (Severe, Verified 09/28/23 10:38) severe stomach pain weird dreams bee pollen [BEE STINGS] Allergy (Intermediate, Verified 09/28/23 10:38) SWELLING hydromorphone [HYDROMORPHONE] Allergy (Intermediate, Verified 09/28/23 10:38) VOMITING barium sulfate Adverse Reaction (Severe, Verified 09/28/23 10:38) Severe stomach pain SHELLFISH Allergy (Severe, Uncoded 07/20/23 11:24) Anaphylaxis ORANGE #5 DYE Allergy (Mild, Uncoded 07/20/23 11:24) HIVES Do you need a note to return to daycare/school/sports/work: No HPI HPI Comments History of Present Illness Details Patient presents to the walk-in today for sick visit Reports injured left knee yesterday while moving a dresser Hilger a ?pop? and has discomfort since Last night knee was swollen, swelling has improved today Pain with walking, standing and bending He reports left knee surgery 1 year ago [facility] Medical History Elevated cholesterol HTN (hypertension) Arthritis Low back pain Loud snoring Hiatal hernia PUD (peptic ulcer disease) Surgical History History of endoscopy Family History Father No problems noted. Mother Diabetes mellitus Brother No problems noted. Sister No problems noted. Son No problems noted. Daughter No problems noted. Social History Housing: House Are you a primary director of patient care to a significant other at home: No Do you presently have visiting nurse or other home services: No Alcohol intake: current Alcohol intake frequency: a few times a week Alcohol type: beer Comment: aware of trip hazard Patient Tobacco Use Status: Current everyday Tobacco user Tobacco use type: Cigarette Cigarette Packs Per Day: 1 Cigarettes Per Day: 20 Years Smoked: 11 e-Cigarette/Vaping Use: Never Used Second Hand Smoke Exposure: No Substance Use Type: Crack/Cocaine service: No Current occupational status: employed Current occupation: [employer] Current occupational exposures/hazards: No Cognitive needs: No Hearing needs: No Vision needs: No Review of Systems Const All systems reviewed & are unremarkable except as noted in HPI and below Physical Exam Vital Signs: Last Vital Signs Temp 97.8 F 09/28/23 10:38 Pulse 83 09/28/23 10:38 BP 132/80 09/28/23 10:38 Pulse Ox 98 09/28/23 10:38 Oxygen Delivery Method Room Air 09/28/23 10:38 General: awake, alert, oriented. Answers questions appropriately. Fully engaged in examination. Skin: warm, dry, intact HEENT: Normocephalic. Hearing intact. Cardiac: External chest normal in appearance. Respiratory: No cough, audible wheezing or stridor. Abdomen: without gross distension. MS: No obvious swelling or deformities. Positive crepitus, moderate tenderness of MCL, minimally tender of LCL, decreased range of motion Neurological: Oriented to person, place, time and situation. Thought process intact. Psychiatric: Appropriate mood and affect. Good judgment and insight. Results Reviewed Results Reviewed: X-ray left knee ordered and independently reviewed: No fracture or dislocation Assessment & Plan Assessment & Plan (1) Left knee injury: Code(s): S89.92XA - Unspecified injury of left lower leg, initial encounter Plan X-ray ordered independently reviewed: No fracture or dislocation Knee brace applied, patient instructed on use Tylenol or Motrin as needed. Patient declined prescription, will use OTC. Referral placed for Orthopedics Work note provided Follow up with Orthopedics PCP or return here for any new or worsening symptoms Orders: Referrals Orthopedics Referral S89.92XA - Unspecified injury of left lower leg, initial encounter Coding Level of Care Code Est Pt Level 4 (13132) Diagnoses Left knee injury S89.92XA
[2023-09-28 10:38] VITALS: BP 132/80; PULSE 83; TEMP 36.6; O2SAT 98
== END 2023-09-28 11:29 | disposition home or self-care (01) ==
PROVIDERS: PCP Nurse Practitioner Family; Visit Provider Registered Nurse Emergency
DX: S89.92XA Unspecified injury of left lower leg, initial encounter (principal)
CPT/HCPCS: 99213

== ENCOUNTER 2023-09-28 10:46 | Outpatient (REF) | payer OTHER, SELFPAY ==
--- NOTE | ~2023-09-28 | XR_ITS ---
EXAMINATION: XR KNEE, LEFT CLINICAL INFORMATION: Injury. COMPARISON: Left knee MRI dated 12/31/2021. TECHNIQUE: 4 views of the left knee. FINDINGS: Mild medial compartment joint space narrowing. Tiny tricompartmental marginal osteophytes. No acute fracture or dislocation. No concerning lytic or blastic osseous lesion. Small joint effusion. No abnormal soft tissue calcification. XR/XR knee LT 4V IMPRESSION: Mild tricompartmental osteoarthritis and small joint effusion.
== END 2023-09-28 10:47 | disposition home or self-care (01) ==
LOC: HO.HMGCX 10:46
PROVIDERS: PCP Nurse Practitioner Family; Visit Provider Registered Nurse Emergency
DX: S89.92XA Unspecified injury of left lower leg, initial encounter (principal)
CPT/HCPCS: 73564

== ENCOUNTER → 2023-10-07 10:00 | Outpatient (AMB) | payer OTHER, SELFPAY ==
--- NOTE | 2023-10-07 10:03 | A.OFFPC_ITS ---
Vital Signs 10/07/23 10:05 Height 6 ft 4 in Weight 258 lb BMI 31.4 BP 132/90 H Blood Pressure Location Rt brachial Position Sitting Pulse 86 Pulse Source Pulse Oximeter Pulse Oximetry (%) 98 Oxygen Delivery Method Room Air Intake Visit Reasons: Walk-In F/U DM Intake Note: Patient here to f/u on diabetes and discuss left knee sharp pain that is bothersome when walking. Allergies metronidazole [From Flagyl] Allergy (Severe, Verified 10/07/23 10:06) Anaphylaxis varenicline [From Chantix] Allergy (Severe, Verified 10/07/23 10:06) severe stomach pain weird dreams bee pollen [BEE STINGS] Allergy (Intermediate, Verified 10/07/23 10:06) SWELLING hydromorphone [HYDROMORPHONE] Allergy (Intermediate, Verified 10/07/23 10:06) VOMITING barium sulfate Adverse Reaction (Severe, Verified 10/07/23 10:06) Severe stomach pain SHELLFISH Allergy (Severe, Uncoded 10/07/23 10:06) Anaphylaxis ORANGE #5 DYE Allergy (Mild, Uncoded 10/07/23 10:06) HIVES Medication List - Last Reconciled 10/07/23 by Lenny Maher, [facility]- albuterol sulfate 90 mcg/actuation 2 puffs inhalation Q4-6H PRN alcohol swabs (Alcohol Prep Pads) 1 pad topical BID blood sugar diagnostic ([employer] Ultra Test strips) Use to check fasting blood sugar and a random blood sugar daily blood-glucose meter ([employer] Ultra2 Meter kit) Use to check fasting blood sugar and a random blood sugar daily bupropion HCl XL (Wellbutrin XL) 150 mg PO QAM empagliflozin (Jardiance) 10 mg PO DAILY famotidine 40 mg PO BEDTIME lancets ([employer] Delica Lancets) Use to check fasting blood sugar and a random blood sugar daily lisinopril 2.5 mg PO DAILY 90 days metformin ER 1,000 mg (2 x 500 mg) PO BID 30 days pantoprazole 40 mg PO DAILY rosuvastatin 10 mg PO .qhs sucralfate 1 g PO BID Tobacco use date assessed: 10/07/23 Dental Screening Dental Screen Date: 10/07/23 Did you have a dental visit in the last 12 months?: No Did you have a dental problem in the last 6 months where you did not have access to dental care?: No Was dental information given to patient?: Patient has dentist HPI Walk-In F/U DM HPI Details Pt is a diabetic, on an CARLOS and a statin. A1C in office today is 9.3. Due for microalbumin. Denies polyuria, polydipsia, does report neuropathy. Pt denies any signs and symptoms of hypoglycemia and does know how to correct it. Will start jardiance 10mg. Pt reports that his diet is way off. Encouraged pt to work on his diet. Pt reports increased anxiety/depression. He reports being more easily agitated. He has a lot going on at home/work, has children and foster children. He also has a who has ADD and OCD. Pt is interested in seeing a therapist, will have team speak with pt. Denies any SI and HI. [facility] Medical History Elevated cholesterol HTN (hypertension) Arthritis Low back pain Loud snoring Hiatal hernia PUD (peptic ulcer disease) Surgical History History of endoscopy Family History Father No problems noted. Mother Diabetes mellitus Brother No problems noted. Sister No problems noted. Son No problems noted. Daughter No problems noted. Social History Housing: House Are you a primary career development specialist to a significant other at home: No Do you presently have visiting nurse or other home services: No Alcohol intake: current Alcohol intake frequency: a few times a week Alcohol type: beer Comment: aware of trip hazard Patient Tobacco Use Status: Current everyday Tobacco user Tobacco use type: Cigarette Cigarette Packs Per Day: 1 Cigarettes Per Day: 20 Years Smoked: 11 e-Cigarette/Vaping Use: Never Used Second Hand Smoke Exposure: No Substance Use Type: Crack/Cocaine service: No Current occupational status: employed Current occupation: [email or web address] Current occupational exposures/hazards: No Cognitive needs: No Hearing needs: No Vision needs: No Questionnaire PHQ-9 Over the last 2 weeks, how often have you been bothered by any of the following problems? 1. Little interest or pleasure in doing things: more than half the days 2. Feeling down, depressed, or hopeless: nearly every day 3. Trouble falling or staying asleep, or sleeping too much: nearly every day 4. Feeling tired or having little energy: nearly every day 5. Poor appetite or overeating: nearly every day 6. Feeling bad about yourself - or that you are a failure or have let yourself or your family down: nearly every day 7. Trouble concentrating on things, such as reading the newspaper or watching television: more than half the days 8. Moving or speaking so slowly that other people could have noticed. Or the opposite - being so fidgety or restless that you have been moving around a lot more than usual: more than half the days 9. Thoughts that you would be better off or of hurting yourself in some way: several days Total score: 22 Depression Screening Interpretation: Positive (saeid spoke with pt, denies any si or hi) Depression Screening Follow-up: Existing condition and Community Mental Health Worker F/U Depression Screening Done: Yes 29383 - PHQ-9 Billing: Yes Source: Developed by Drs. Brandin Morales, Gilma Mayo, Tee Lawrence and colleagues, with an educational daniel from [employer]. Thrive Questionnaire Date Thrive assessed: 10/07/23 I am a: Patient What is your living situation today?: I have a steady place to live Within the past 12 months, did the food you bought not last and you didn't have the money to get more?: Never true Within the past 12 months, did you worry whether your food would run out before you got money to buy more?: Never true Do you have trouble paying for medicines?: Yes Do you have trouble getting transportation to medical appointments?: No Do you have trouble paying your heating and electricity bill?: Yes Do you have trouble taking care of your child, family member or friend?: No Do you have trouble with day-to-day activities such as bathing, preparing meals, shopping, managing finances, etc.?: No Are you currently unemployed and looking for a job?: No Are you interested in more education?: No Currently or been in a relationship where the following occur: I choose not to answer this question THRIVE Score: 1 AUDIT C Alcohol Use Questionnaire (AUDIT-C) 1. How often do you have a drink containing alcohol?: 2-3 times a week 2. How many drinks containing alcohol do you have on a typical day when you are drinking?: 1 or 2 3. How often do you have six or more drinks on one occasion?: Never Total Score: 3 Score Reviewed/Action Taken: No ANTHONY-7 AMB Questionnaire ANTHONY-7 Date ANTHONY - 7 assessed: 06/10/22 Feeling nervous, anxious, or on edge: 3 = Nearly every day Not being able to stop or control worryin = Nearly every day Worrying too much about different things: 3 = Nearly every day Trouble relaxin = Nearly every day Being so restless that it is hard to sit still: 2 = More than half the days Becoming easily annoyed or irritable: 3 = Nearly every day Feeling afraid as if something awful might happen: 2 = More than half the days Total ANTHONY-7 score (0-4 normal; 5-9 mild; 10-14 moderate; 15-21 severe): 19 Source: Developed by Drs. Brandin Morales, Gilma Mayo, Tee Lawrence and colleagues, with an educational daniel from [employer]. ANTHONY-7 Assessment Billing ANTHONY-7 Assessment Tool: ANTHONY-7 Assessment 24518 Review of Systems Const Reports as per HPI Physical exam (Primary Care) Vital Signs: Last Vital Signs Pulse 86 10/07/23 10:05 BP 132/90 H 10/07/23 10:05 Pulse Ox 98 10/07/23 10:05 Oxygen Delivery Method Room Air 10/07/23 10:05 BMI result Body Mass Index 31.4 Tobacco/Smoking Status: Tobacco use Status Tobacco use date assessed 10/07/23 10/07/23 10:10 Patient Tobacco Use Status Current everyday Tobacco 10/07/23 10:04 Tobacco use type Cigarette 10/07/23 10:04 e-Cigarette/Vaping Use Never Used 10/07/23 10:04 PHQ-9: PHQ-9 Score PHQ-9: Total score 22 10/07/23 10:57 Depression Screening Interpretation: Positive (saeid spoke with pt, denies any si or hi) Depression Screening Follow-up: Existing condition and Community Mental Health Worker F/U Thrive Assessment: Date of Thrive Assessment Date Thrive assessed 10/07/23 10/07/23 10:57 Currently or been in a relationship where the following occur: I choose not to answer this question Const General: cooperative Nutritional Appearance: obese Orientation/consciousness: patient oriented x3 Resp Effort & Inspection: normal respiratory effort Auscultation: clear to auscultation bilaterally Cardio Rate: regular rate Rhythm: regular rhythm Heart sounds: S1 normal heart sound present and S2 normal heart sound present Neuro General: patient oriented x3 Extrem Other: bilat feet: + sensation with use of monofilament, feet intact Psych Appearance: grossly normal Mental Status: mental status grossly normal Speech and movement: Normal speech and movement present Affect: normal affect Attitude: cooperative Thought process: Normal thought process present Thought content: Normal thought content present Insight: Good insight present (Psych) Judgement: Good judgement present (Psych) Results AMB Hemoglobin A1c AMB Hemoglobin A1c 9.3 % Last Edit by THOMAS Ross on 10/07/23 10 :28 Results Reviewed Results Reviewed: Laboratory Last Values Hgb A1c (Clinic) 9.3 % (4.0-6.0) H 10/07/23 10:28 Assessment and Plan Assessment & Plan (1) Uncontrolled diabetes mellitus with hyperglycemia: Code(s): E11.65 - Type 2 diabetes mellitus with hyperglycemia Plan: encouraged taking meds, checking his sugar more, and working on his diet (2) Depression: Code(s): F32.A - Depression, unspecified Plan: saeid () spoke with pt (3) Stress: Code(s): F43.9 - Reaction to severe stress, unspecified Plan: Plan The patient agreed to the use of a medical physics researcher for this encounter. Scribed for CHERY Yeboah by Sera Rice medical physics researcher, on 10/07/2023 at 10:25 EST. Orders: Orders TSH reflex Free T4 Today E11.65 - Type 2 diabetes mellitus with hyperglycemia UA CC w/rflx Micro + Cult Today E11.65 - Type 2 diabetes mellitus with hyperglycemia Lipid Panel Today E11.65 - Type 2 diabetes mellitus with hyperglycemia AMB Hemoglobin A1c Today E11.9 - Type 2 diabetes mellitus without complications Complete Blood Count Auto Diff Today E11.65 - Type 2 diabetes mellitus with hyperglycemia Comprehensive [place]. Panel Fast Today E11.65 - Type 2 diabetes mellitus with hyperglycemia Medications: New empagliflozin (Jardiance) 10 mg PO DAILY 90 tabs 1RF Coding Level of Care Code Est Pt Level 3 (47989) Diagnoses Uncontrolled diabetes mellitus with hyperglycemia E11.65 Depression F32.A Stress F43.9 Additional Codes ANTHONY-7 Assessment Billing - ANTHONY-7 Assessment Tool: ANTHONY-7 Assessment 93808 ([id number])
[2023-10-07 10:05] VITALS: BP 132/90; PULSE 86; O2SAT 98; BMI 31.4
== END ==
PROVIDERS: PCP Nurse Practitioner Family; Visit Provider Nurse Practitioner Family
DX: E11.65 Type 2 diabetes mellitus with hyperglycemia (principal); F32.A Depression, unspecified; F43.9 Reaction to severe stress, unspecified; E11.9 Type 2 diabetes mellitus without complications
CPT/HCPCS: 83036; 99213

== ENCOUNTER 2023-10-27 09:41 | Outpatient (REF) | payer OTHER, SELFPAY ==
--- NOTE | ~2023-10-27 | XR_ITS ---
EXAMINATION: XR KNEE, LEFT XR AP STANDING BILATERAL CLINICAL INFORMATION: Pain and unspecified knee COMPARISON: X-ray left knee 09/28/2023 with MRI left knee 12/31/2021. 12/03/2021 AP standing bilateral knees. TECHNIQUE: AP standing view of bilateral knees. 2 sunrise views of the left knee. FINDINGS: Left Knee: Moderate narrowing of the medial compartment. Tiny tricompartmental osteophytes. AP standing view of the right knee demonstrates minimal narrowing of the medial compartment with minimal medial marginal osteophytes. XR/XR knee LT 1V IMPRESSION: Moderate degenerative changes left knee.
--- NOTE | ~2023-10-27 | XR_ITS ---
EXAMINATION: XR KNEE, LEFT XR AP STANDING BILATERAL CLINICAL INFORMATION: Pain and unspecified knee COMPARISON: X-ray left knee 09/28/2023 with MRI left knee 12/31/2021. 12/03/2021 AP standing bilateral knees. TECHNIQUE: AP standing view of bilateral knees. 2 sunrise views of the left knee. FINDINGS: Left Knee: Moderate narrowing of the medial compartment. Tiny tricompartmental osteophytes. AP standing view of the right knee demonstrates minimal narrowing of the medial compartment with minimal medial marginal osteophytes. XR/XR knee RT 2V IMPRESSION: Moderate degenerative changes left knee.
== END 2023-10-27 09:42 | disposition home or self-care (01) ==
LOC: HO.HOSX 09:41
PROVIDERS: Visit Provider Physician Assistant
DX: M25.561 Pain in right knee (principal); M25.562 Pain in left knee
CPT/HCPCS: 73560

== ENCOUNTER 2023-10-27 11:13 | Outpatient (AMB) | payer OTHER, SELFPAY ==
--- NOTE | 2023-10-27 11:15 | A.OFFVIS_ITS ---
Intake Visit Reasons: OV - Left knee pain s/p left Knee , 06/18/22 NE Intake Note: Robert is a 43 year old male who presents today for a follow up of his left knee pain s/p left Knee , 06/18/22 NE. Patient reports he had a injury at home about 4 weeks ago when he was removing a entertainment center when he stepped to the last step he heard a pop/crunching sound. Patient expresses that his pain is on top of the knee and it feels very sore. When patient walks he feels his knee buckle like if his knee is going to give out per patient. He would like to know if naproxen will help him with the pain. Allergies metronidazole [From Flagyl] Allergy (Severe, Verified 10/27/23 11:24) Anaphylaxis varenicline [From Chantix] Allergy (Severe, Verified 10/27/23 11:24) severe stomach pain weird dreams bee pollen [BEE STINGS] Allergy (Intermediate, Verified 10/27/23 11:24) SWELLING hydromorphone [HYDROMORPHONE] Allergy (Intermediate, Verified 10/27/23 11:24) VOMITING barium sulfate Adverse Reaction (Severe, Verified 10/27/23 11:24) Severe stomach pain SHELLFISH Allergy (Severe, Uncoded 10/07/23 10:06) Anaphylaxis ORANGE #5 DYE Allergy (Mild, Uncoded 10/07/23 10:06) HIVES HPI HPI OV - Left knee pain s/p left Knee , 06/18/22 NE: Details: 43-year-old male who presents in the office today 1 year and 4 months status post left knee partial medial and lateral meniscectomy, which was performed on 06/18/[address] Chisholm. I last saw the patient in the office on 06/23/2022 when he was referred to physical therapy. While in the office today the patient reports about 4 weeks ago, in 09/2023 he injured his left knee at home when he was removing an entertainment center. He states he stepped on the last step when he heard a ?pop/crunch? sound. He claims his pain is on the top of the left knee and is very sore. He reports buckling/giving out with ambulation. The patient is interested to know if naproxen can help with pain relief. [facility] Medical History Elevated cholesterol HTN (hypertension) Arthritis Low back pain Loud snoring Hiatal hernia PUD (peptic ulcer disease) Surgical History History of endoscopy Family History Father No problems noted. Mother Diabetes mellitus Brother No problems noted. Sister No problems noted. Son No problems noted. Daughter No problems noted. Social History Housing: House Are you a primary palliative care coordinator to a significant other at home: No Do you presently have visiting nurse or other home services: No Alcohol intake: current Alcohol intake frequency: a few times a week Alcohol type: beer Comment: aware of trip hazard Patient Tobacco Use Status: Current everyday Tobacco user Tobacco use type: Cigarette Cigarette Packs Per Day: 1 Cigarettes Per Day: 20 Years Smoked: 11 e-Cigarette/Vaping Use: Never Used Second Hand Smoke Exposure: No Substance Use Type: Crack/Cocaine service: No Current occupational status: employed 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 Current occupational exposures/hazards: No Cognitive needs: No Hearing needs: No Vision needs: No Review of Systems Const All systems reviewed & are unremarkable except as noted in HPI and below Physical Exam Const General: cooperative, healthy appearing and no acute distress Resp Effort & Inspection: normal respiratory effort and able to speak in complete sentences Cardio Rate: regular rate Peripheral pulses: Peripheral pulses 2+ throughout GI Palpation (GI): Soft to palpation Skin Lesions: no lesions Rashes: no rashes Extrem Other: Left knee: Normal to inspection. No ecchymosis, erythema, or joint effusion. No tenderness to palpation along the lateral joint line. Tenderness to palpation along the medial joint line. Full knee extension and flexion. Positive Rina's medial joint line. NVI. Assessment & Plan Assessment & Plan (1) Osteoarthritis of left knee: Code(s): M17.12 - Unilateral primary osteoarthritis, left knee Category: Medical (2) Injury of meniscus of left knee: Code(s): S83.8X2A - Sprain of other specified parts of left knee, initial encounter Category: Medical Plan Mr. Smith is a 43-year-old male who presents in the office today 1 year and 4 months status post left knee partial medial and lateral meniscectomy, which was performed on 06/18/[address] Chisholm. I last saw the patient in the office on 06/23/2022 when he was referred to physical therapy. While in the office today the patient reports about 4 weeks ago, in 09/2023 he injured his left knee at home when he was removing an entertainment center. He states he stepped on the last step when he heard a ?pop/crunch? sound. He claims his pain is on the top of the left knee and that it is very sore. He reports buckling/giving out with ambulation. The patient is interested to know if naproxen can help with pain relief. The patient will be referred for an MRI of the left knee to further evaluate the integrity and surrounding structures. This could be an arthritic flare up, however, his physical exam at this time is significant for meniscal pathology. Follow-up will be after the MRI is obtained, or sooner if needed. X-rays of the bilateral knees which were obtained while in the office today and were reviewed by me, Josephine Argueta PA-C, revealed no acute fracture or dislocation. Orders: Orders XR knee LT 1V Today M25.569 - Pain in unspecified knee XR knee RT 2V Today M25.569 - Pain in unspecified knee MR knee LT wo con Today M17.12 - Unilateral primary osteoarthritis, left knee, S89.92XA - Unspecified injury of left lower leg, initial encounter Patient Instructions: Scribed by Marian Sanford district medical examiner, for Josephine Argueta PA-C on 10/27/2023 at 11:15 am, EST. Coding Level of Care Code Est Pt Level 3 (07959) Diagnoses Osteoarthritis of left knee M17.12 Injury of meniscus of left knee S83.8X2A
== END 2023-10-27 11:46 | disposition home or self-care (01) ==
PROVIDERS: PCP Nurse Practitioner Family; Visit Provider Physician Assistant
DX: M17.12 Unilateral primary osteoarthritis, left knee (principal); S83.8X2A Sprain of other specified parts of left knee, initial encounter
CPT/HCPCS: 99213

== ENCOUNTER 2023-11-23 18:50 | Outpatient (REF) | payer OTHER, SELFPAY ==
--- NOTE | ~2023-11-23 | MR_ITS ---
EXAMINATION: MR KNEE WITHOUT CONTRAST, LEFT CLINICAL INFORMATION: Left knee pain, swelling, instability. Prior meniscal repair. ?medial meniscal tear. COMPARISON: Most recent left knee radiographs dated 10/27/2023 and MRI dated 12/31/2021. TECHNIQUE: MRI of the knee without contrast was performed using routine sequences on a high-field scanner. FINDINGS: MENISCI: Medial Meniscus: Attenuation of the meniscal body and posterior horn, likely indicating prior meniscectomy. Increased T2 signal within the inner portion of the posterior body/horn junction as well as along the femoral articular surface of the posterior horn and root. Findings are slightly more prominent when compared to the prior examination and likely represent a combination of meniscectomy and nondisplaced degenerative tearing. Lateral Meniscus: Heterogeneously increased T2 signal within the posterior horn/root junction involving the inner two-thirds and measuring up to 1.5 cm in ML dimension, consistent with complex tearing. Findings are significantly increased when compared to the prior examination. Correlate with surgical history. LIGAMENTS: Cruciate: Absence of the anterior cruciate ligament is redemonstrated, consistent with a complete ligament tear and resorption. Mild degenerative signal within the posterior cruciate ligament, new when compared to the prior examination. Collateral: Intact. EXTENSOR MECHANISM: Intact. ARTICULAR CARTILAGE/BONE: Patellofemoral Compartment: Mild medial patellar facet articular cartilage signal heterogeneity with tiny marginal osteophytes, similar when compared to the prior examination. Medial Compartment: Weightbearing articular cartilage thinning with full-thickness loss medially where there is mild marrow edema/subchondral cystic change. Posterior weightbearing medial femoral condyle signal heterogeneity and fissuring. Small marginal osteophytes. Findings have minimally progressed. Lateral Compartment: Mild lateral tibial plateau articular cartilage signal heterogeneity with tiny marginal osteophytes, unchanged. JOINT FLUID AND BURSAE: Small joint effusion. MR/MR knee LT wo con IMPRESSION: 1. Attenuation of the medial meniscal body and posterior horn, likely indicating prior meniscectomy. Increased T2 signal within the inner portion of the posterior body/horn junction as well as along the femoral articular surface of the posterior horn and root, slightly more prominent when compared to the prior examination and likely representing a combination of meniscectomy and nondisplaced degenerative tearing. 2. Complex tearing of the lateral meniscus posterior horn/root junction, significantly increased when compared to the prior examination. Correlate with surgical history. 3. Complete tear of the anterior cruciate ligament, unchanged. Mild degenerative signal within the posterior cruciate ligament, new when compared to the prior examination. 4. Etnn-hj-fhjhcqhd medial as well as mild patellofemoral and lateral compartment osteoarthritis, minimally progressed. Small joint effusion.
== END 2023-11-23 18:51 | disposition home or self-care (01) ==
LOC: HO.MRI 18:50
PROVIDERS: PCP Nurse Practitioner Family; Visit Provider Physician Assistant
DX: S89.92XA Unspecified injury of left lower leg, initial encounter (principal); M17.12 Unilateral primary osteoarthritis, left knee
CPT/HCPCS: 73721

== ENCOUNTER 2023-12-02 14:09 | Outpatient (AMB) | payer OTHER, SELFPAY ==
--- NOTE | 2023-12-02 14:10 | MHC.OFFVIS ---
Intake Visit Reasons: TEL-MRI review left knee Intake Note: Robert is a 43 year old male who presents on the phone for a telehealth visit for a MRI review of his left knee. He states that his knee pain has stayed the same it hasn't gotten better. Allergies metronidazole [From Flagyl] Allergy (Severe, Verified 12/02/23 14:11) Anaphylaxis varenicline [From Chantix] Allergy (Severe, Verified 12/02/23 14:11) severe stomach pain weird dreams bee pollen [BEE STINGS] Allergy (Intermediate, Verified 12/02/23 14:11) SWELLING hydromorphone [HYDROMORPHONE] Allergy (Intermediate, Verified 12/02/23 14:11) VOMITING barium sulfate Adverse Reaction (Severe, Verified 12/02/23 14:11) Severe stomach pain SHELLFISH Allergy (Severe, Uncoded 10/07/23 10:06) Anaphylaxis ORANGE #5 DYE Allergy (Mild, Uncoded 10/07/23 10:06) HIVES HPI HPI TEL-MRI review left knee: Details: 43-year-old male who presents via telehealth today for a review of his MRI results and follow-up of left knee pain. I last saw the patient in the office on when the MRI was ordered.? ? Over the phone the patient reports his left knee pain has remained the same with no improvement.? [facility] Medical History Elevated cholesterol HTN (hypertension) Arthritis Low back pain Loud snoring Hiatal hernia PUD (peptic ulcer disease) Surgical History History of endoscopy Family History Father No problems noted. Mother Diabetes mellitus Brother No problems noted. Sister No problems noted. Son No problems noted. Daughter No problems noted. 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 Telehealth Telehealth Telehealth Platform: Telephone Location of provider rendering services: practice address Location of patient: address on file Patient Identification confirmed using: Name, : Yes Telehealth method: voice only Patient verbally consented to treatment: Yes Patient verbally consented to billing insurance company: Yes Patient informed of any privacy concerns related to visit: Yes Minutes spent on Phone/Video with Pt.: 15 Assessment & Plan Assessment & Plan (1) Osteoarthritis of left knee: Code(s): M17.12 - Unilateral primary osteoarthritis, left knee Category: Medical (2) Injury of meniscus of left knee: Code(s): S83.8X2A - Sprain of other specified parts of left knee, initial encounter Category: Medical Plan Mr. Smith is a 43-year-old male who presents via telehealth today for a review of his MRI results and follow-up of left knee pain. I last saw the patient in the office on when the MRI was ordered.? ? Over the phone the patient reports his left knee pain has remained the same with no improvement.? ? We discussed the role of cortisone injections, which the patient is interested in and would like to proceed. He will be scheduled for a cortisone injection in the left knee tomorrow, 12/03/2023. Follow-up will be tomorrow, or sooner if needed. ? ? MRI of the left knee, obtained on 11/23/2023, revealed: ? 1. Attenuation of the medial meniscal body and posterior horn, likely? indicating prior meniscectomy. Increased T2 signal within the inner? portion of the posterior body/horn junction as well as along the? femoral articular surface of the posterior horn and root, slightly more? prominent when compared to the prior examination and likely? representing a combination of meniscectomy and nondisplaced? degenerative tearing.? 2. Complex tearing of the lateral meniscus posterior horn/root? junction, significantly increased when compared to the prior? examination. Correlate with surgical history.? 3. Complete tear of the anterior cruciate ligament, unchanged. Mild? degenerative signal within the posterior cruciate ligament, new when? compared to the prior examination.? 4. Bpeh-da-mrolrpda medial as well as mild patellofemoral and lateral? compartment osteoarthritis, minimally progressed. Small joint effusion.? Patient Instructions: Scribed by [facility] representative, for Josephine Argueta PA-C on 12/02/2023 at 2:21 pm, EST.? Coding Level of Care Code Tele Est Pt Level 3 (96055) Diagnoses Osteoarthritis of left knee M17.12 Injury of meniscus of left knee S83.8X2A
== END 2023-12-02 14:45 | disposition home or self-care (01) ==
LOC: HO.HOS 14:10
PROVIDERS: PCP Nurse Practitioner Family; Visit Provider Physician Assistant
DX: M17.12 Unilateral primary osteoarthritis, left knee (principal); S83.8X2A Sprain of other specified parts of left knee, initial encounter
CPT/HCPCS: 99213

== ENCOUNTER → 2023-12-02 14:09 | Outpatient (BNVA) | payer OTHER, SELFPAY | PROVIDERS: PCP Nurse Practitioner Family; Visit Provider Physician Assistant ==

== ENCOUNTER 2023-12-04 10:26 | Outpatient (AMB) | payer OTHER, SELFPAY ==
--- NOTE | 2023-12-04 10:35 | MHC.OFFVIS ---
Vital Signs 12/04/23 10:39 Height 6 ft 4 in Weight 256 lb BMI 31.2 Intake Visit Reasons: OV, L knee inj Intake Note: Robert is a 43 year old male who presents today for a left knee cortisone injection. Patient reports he would like to return back to work for 12/07/23, on full duty. He also has some questions regarding gel injections and if the cortisone will affect his medications. Hx of DM. Allergies metronidazole [From Flagyl] Allergy (Severe, Verified 12/04/23 10:38) Anaphylaxis varenicline [From Chantix] Allergy (Severe, Verified 12/04/23 10:38) severe stomach pain weird dreams bee pollen [BEE STINGS] Allergy (Intermediate, Verified 12/04/23 10:38) SWELLING hydromorphone [HYDROMORPHONE] Allergy (Intermediate, Verified 12/04/23 10:38) VOMITING barium sulfate Adverse Reaction (Severe, Verified 12/04/23 10:38) Severe stomach pain SHELLFISH Allergy (Severe, Uncoded 10/07/23 10:06) Anaphylaxis ORANGE #5 DYE Allergy (Mild, Uncoded 10/07/23 10:06) HIVES HPI HPI OV, L knee inj: Details: 43-year-old male who presents in the office today for a follow-up of left knee osteoarthritis and meniscal injury. I last spoke to the patient on 12/02/2023 when we discussed moving forward with a cortisone injection in the left knee. ? ? While in the office today, the patient presents for a cortisone injection in the left knee. The patient would also like to discuss gel injections and if the cortisone will affect any other medications. ? ? Patient has a significant medical history of diabetes mellitus.? [facility] Medical History Elevated cholesterol HTN (hypertension) Arthritis Low back pain Loud snoring Hiatal hernia PUD (peptic ulcer disease) Surgical History History of endoscopy Family History Father No problems noted. Mother Diabetes mellitus Brother No problems noted. Sister No problems noted. Son No problems noted. Daughter No problems noted. 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 Current occupational exposures/hazards: No Cognitive needs: No Hearing needs: No Vision needs: No Review of Systems Const All systems reviewed & are unremarkable except as noted in HPI and below Physical Exam Vital Signs: BMI result Body Mass Index 31.2 Const General: cooperative, healthy appearing and no acute distress Resp Effort & Inspection: normal respiratory effort and able to speak in complete sentences Cardio Rate: regular rate Peripheral pulses: Peripheral pulses 2+ throughout GI Palpation (GI): Soft to palpation Skin Lesions: no lesions Rashes: no rashes Extrem Other: Left knee: Normal to inspection. No ecchymosis, erythema, or joint effusion. No tenderness to palpation along the lateral joint line. Tenderness to palpation along the medial joint line. Full knee extension and flexion. Positive Rina's medial joint line. NVI. Office Procedures Joint Injection/Drain Joint Injection/Drain Primary Site: left knee Prep: site was prepped using aseptic technique, ethochloride spray was applied and injection warnings given Injected: 40 mg of, DepoMedrol, with 8 mL of (2% plain lido ) and in the joint Approach Used: anterolateral Procedure: The patient tolerated the procedure well, but had some pain with the injection and there was some relief with the local anesthesia Coding 53182 - Large joint Procedure code (CPT) selection complete Assessment & Plan Assessment & Plan (1) Osteoarthritis of left knee: Code(s): M17.12 - Unilateral primary osteoarthritis, left knee Category: Medical (2) Injury of meniscus of left knee: Code(s): S83.8X2A - Sprain of other specified parts of left knee, initial encounter Category: Medical Plan Mr. Smith is a 43-year-old male who presents in the office today for a follow-up of left knee osteoarthritis and meniscal injury. I last spoke to the patient on 12/02/2023 when we discussed moving forward with a cortisone injection in the left knee. ? ? While in the office today, the patient presents for a cortisone injection in the left knee. The patient would also like to discuss gel injections and if the cortisone will affect any other medications. ? ? Patient has a significant medical history of diabetes mellitus.? ? The patient was offered a cortisone injection in the left knee with 40 mg of DepoMedrol. The patient was explained the risks, benefits, and alternatives to receiving this injection. After receiving consent for the injection, the patient had the procedure done while in the office today. The patient tolerated the procedure well with no complications.? ? Due to the patient?s history of diabetes, they were instructed to monitor his blood glucose level. The patient was informed that they could see a rise in their numbers and if the numbers became too high, they were instructed to call their PCP. The patient was also informed that they could have facial flushing as a side effect of the injection, but this will pass.? A1c on 10/07/2023 was 9.3. ? Follow-up will be PRN, or sooner if needed. ? Patient Instructions: Scribed by [facility] medical supply technician, for Josephine Argueta PA-C on 12/04/2023 at 10:30 am, EST.? Coding Level of Care Code Est Pt Level 4 (18496) Diagnoses Osteoarthritis of left knee M17.12 Injury of meniscus of left knee S83.8X2A CPT Codes Coding - 91939 Large joint: 33462 - Large joint ([id number])
[2023-12-04 10:39] VITALS: BMI 31.2
== END 2023-12-04 11:00 | disposition home or self-care (01) ==
PROVIDERS: PCP Nurse Practitioner Family; Visit Provider Physician Assistant
DX: M17.12 Unilateral primary osteoarthritis, left knee (principal); S83.8X2A Sprain of other specified parts of left knee, initial encounter
CPT/HCPCS: 20610; 99214

== ENCOUNTER → 2023-12-04 10:26 | Outpatient (BNVA) | payer OTHER, SELFPAY | PROVIDERS: PCP Nurse Practitioner Family; Visit Provider Physician Assistant | DX: M17.12 Unilateral primary osteoarthritis, left knee (principal); S83.8X2A Sprain of other specified parts of left knee, initial encounter | CPT/HCPCS: 20610; J1010 ==

== ENCOUNTER → 2024-01-21 13:26 | Outpatient (AMB) | payer OTHER, SELFPAY ==
--- NOTE | 2024-01-21 13:34 | MHC.OFFWIV ---
Intake Vital Signs 01/21/24 13:35 Height 6 ft 4 in Weight 253 lb BMI 30.8 BP 150/98 H Blood Pressure Location Lt brachial Position Sitting Pulse 95 Pulse Source Pulse Oximeter Temp 98.2 F Temp Source Oral Pulse Oximetry (%) 98 Oxygen Delivery Method Room Air Intake Visit Reasons: EP vomiting, sweating, headache Intake Note: pt c/o vomiting, sweating and headache. Started Thursday morning Patient Tobacco Use Status: Current everyday Tobacco user Allergies metronidazole [From Flagyl] Allergy (Severe, Verified 01/21/24 13:39) Anaphylaxis varenicline [From Chantix] Allergy (Severe, Verified 01/21/24 13:39) severe stomach pain weird dreams bee pollen [BEE STINGS] Allergy (Intermediate, Verified 01/21/24 13:39) SWELLING hydromorphone [HYDROMORPHONE] Allergy (Intermediate, Verified 01/21/24 13:39) VOMITING barium sulfate Adverse Reaction (Severe, Verified 01/21/24 13:39) Severe stomach pain SHELLFISH Allergy (Severe, Uncoded 01/21/24 13:39) Anaphylaxis ORANGE #5 DYE Allergy (Mild, Uncoded 01/21/24 13:39) HIVES Do you need a note to return to daycare/school/sports/work: Yes HPI HPI Comments History of Present Illness Details Patient is a 44-year-old male complaining of 2 days of nausea, vomiting, sweating and headaches. He states that can not keep anything down but a little bit of fluid and some crackers. He states he has not taken his diabetes medications in 3 days. He states he is not on oral insulin, he on metformin. He states that 7 of his coworkers have all tested positive for COVID. He tells me he tested for COVID yesterday and the day before and both tests were negative. He has had some symptoms that have resolved such as shortness of breath, a cough and sore throat. He has been taking cizz-lwu-tcgefat medications to manage his symptoms. [facility] Medical History Elevated cholesterol HTN (hypertension) Arthritis Low back pain Loud snoring Hiatal hernia PUD (peptic ulcer disease) Surgical History History of endoscopy Family History Father No problems noted. Mother Diabetes mellitus Brother No problems noted. Sister No problems noted. Son No problems noted. Daughter No problems noted. 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 Current occupational exposures/hazards: No Cognitive needs: No Hearing needs: No Vision needs: No Review of Systems Const All systems reviewed & are unremarkable except as noted in HPI and below Physical Exam Vital Signs: Last Vital Signs Temp 98.2 F 01/21/24 13:35 Pulse 95 01/21/24 13:35 BP 150/98 H 01/21/24 13:35 Pulse Ox 98 01/21/24 13:35 Oxygen Delivery Method Room Air 01/21/24 13:35 BMI result Body Mass Index 30.8 Const General: cooperative, healthy appearing, comfortable and no acute distress Orientation/consciousness: patient oriented x3 Limitations: no limitations HEENT Head: Yes normal to inspection Ears: hearing grossly normal bilaterally, external ears normal and TM's normal bilaterally General nose exam: Normal external nose present, Normal nares present and No nasal discharge present Face and sinus: Yes normal facial exam and Yes sinus tenderness Mouth: Normal oral and palatal mucosa present and moist mucous membranes Throat: Yes tonsils normal, Yes uvula midline and Yes posterior oropharynx abnormal (Erythema) Eyes General: appearance normal, both eyes and all related structures Neck Neck: Yes normal visual inspection Resp Effort & Inspection: normal respiratory effort, able to speak in complete sentences, no respiratory distress, not tachypneic, no tripod positioning and no use of accessory muscles Skin General skin exam: no rashes or lesions noted Neuro General: patient oriented x3 Extrem General: Yes normal to inspection and Yes no clubbing, cyanosis or edema Assessment & Plan Assessment & Plan (1) Viral syndrome: Code(s): B34.9 - Viral infection, unspecified Plan: COVID flu and RSV have been sent, sent Zofran to help patient manage his nausea so he can keep fluids down. Educated patient on staying well hydrated and taking tgrd-rxi-rneioba medications to manage his symptoms. Plan See above Orders: Orders SARS-CoV2/FLU/RSV Today J06.9 - Acute upper respiratory infection, unspecified Medications: New ondansetron 4 mg PO Q8H PRN 10 tabs 0RF nausea and vomiting Coding Level of Care Code Est Pt Level 3 (59414) Diagnoses Viral syndrome B34.9
[2024-01-21 13:35] VITALS: BP 150/98; PULSE 95; TEMP 36.8; O2SAT 98; BMI 30.8
== END ==
PROVIDERS: PCP Nurse Practitioner Family; Visit Provider Physician Assistant
DX: B34.9 Viral infection, unspecified (principal)
CPT/HCPCS: 99213

== ENCOUNTER 2024-01-21 14:02 | Outpatient (REF) | payer OTHER, SELFPAY ==
[2024-01-21 18:04] LABS: Influenza A PCR NEGATIVE (Negative); Influenza B PCR NEGATIVE (Negative); Resp Syncy Virus RNA Qual PCR NEGATIVE (Negative); SARS COV2 PCR INHOUSE NEGATIVE (Negative)
== END 2024-01-21 14:03 | disposition home or self-care (01) ==
LOC: HO.LAB 14:02
PROVIDERS: Visit Provider Physician Assistant
DX: J06.9 Acute upper respiratory infection, unspecified (principal)
CPT/HCPCS: 0241U

== ENCOUNTER 2024-02-02 10:58 | Outpatient (AMB) | payer OTHER, SELFPAY ==
[2024-02-02 11:21] VITALS: BP 132/88; PULSE 87; O2SAT 98; BMI 30.6
--- NOTE | 2024-02-02 11:21 | MHC.PC.OV ---
"Vital Signs 02/02/24 11:21 Height 6 ft 4 in Weight 251 lb 8 oz BMI 30.6 BP 132/88 Blood Pressure Location Rt brachial Position Sitting Pulse 87 Pulse Source Pulse Oximeter Pulse Oximetry (%) 98 Oxygen Delivery Method Room Air Intake Visit Reasons: 3 month follow up DM Intake Note: pt is here for 3 mon f/u DM, A1c today was 8.4% Allergies metronidazole [From Flagyl] Allergy (Severe, Verified 02/02/24 11:22) Anaphylaxis varenicline [From Chantix] Allergy (Severe, Verified 02/02/24 11:22) severe stomach pain weird dreams bee pollen [BEE STINGS] Allergy (Intermediate, Verified 02/02/24 11:22) SWELLING hydromorphone [HYDROMORPHONE] Allergy (Intermediate, Verified 02/02/24 11:22) VOMITING barium sulfate Adverse Reaction (Severe, Verified 02/02/24 11:22) Severe stomach pain SHELLFISH Allergy (Severe, Uncoded 01/21/24 13:39) Anaphylaxis ORANGE #5 DYE Allergy (Mild, Uncoded 01/21/24 13:39) HIVES Medication List - Last Reconciled 02/02/24 by Lenny Maher, [facility]- albuterol sulfate 90 mcg/actuation 2 puffs inhalation Q4-6H PRN alcohol swabs (Alcohol Prep Pads) 1 pad topical BID blood sugar diagnostic ([email or web address] Ultra Test strips) Use to check fasting blood sugar and a random blood sugar daily blood-glucose meter ([email or web address] Ultra2 Meter kit) Use to check fasting blood sugar and a random blood sugar daily dapagliflozin propanediol (Farxiga) 5 mg PO DAILY escitalopram oxalate 5 mg PO DAILY famotidine 40 mg PO BEDTIME lancets ([email or web address]Touch Delica Lancets) Use to check fasting blood sugar and a random blood sugar daily lisinopril 5 mg PO DAILY 90 days metformin ER 1,000 mg (2 x 500 mg) PO BID 30 days ondansetron 4 mg PO Q8H PRN pantoprazole 40 mg PO DAILY rosuvastatin 10 mg PO .qhs sucralfate 1 g PO BID Tobacco use date assessed: 02/02/24 Dental Screening Dental Screen Date: 02/02/24 Did you have a dental visit in the last 12 months?: Yes Did you have a dental problem in the last 6 months where you did not have access to dental care?: No Was dental information given to patient?: Patient has dentist HPI 3 month follow up DM HPI Details Pt is a diabetic, on an CARLOS and a statin. A1C in office today is 8.4. Due for microalbumin, will order. Denies polyuria, polydipsia, and neuropathy. Pt denies any signs and symptoms of hypoglycemia and does know how to correct it. Pt reports that jardiance was not covered by his insurance. Will send farxiga 5mg. Eye exam is up to date according to pt. Pt is interested in a vasectomy. Will refer to urology. Due for colon screen, will refer to GI. [facility] Medical History Elevated cholesterol HTN (hypertension) Arthritis Low back pain Loud snoring Hiatal hernia PUD (peptic ulcer disease) Surgical History History of endoscopy Family History Father No problems noted. Mother Diabetes mellitus Brother No problems noted. Sister No problems noted. Son No problems noted. Daughter No problems noted. Social History Housing: House Are you a primary point of care specialist to a significant other at home: No Do you presently have visiting nurse or other home services: No Alcohol intake: current Alcohol intake frequency: a few times a week Alcohol type: beer Comment: aware of trip hazard Patient Tobacco Use Status: Current everyday Tobacco user Tobacco use type: Cigarette Cigarette Packs Per Day: 1 Cigarettes Per Day: 20 Years Smoked: 11 e-Cigarette/Vaping Use: Never Used Second Hand Smoke Exposure: No Substance Use Type: Crack/Cocaine service: No Current occupational status: employed Current occupation: [id number] Current occupational exposures/hazards: No Cognitive needs: No Hearing needs: No Vision needs: No Questionnaire Thrive Questionnaire Date Thrive assessed: 02/02/24 I am a: Patient What is your living situation today?: I have a steady place to live Within the past 12 months, did the food you bought not last and you didn't have the money to get more?: Never true Within the past 12 months, did you worry whether your food would run out before you got money to buy more?: Never true Do you have trouble paying for medicines?: Yes Do you have trouble getting transportation to medical appointments?: No Do you have trouble paying your heating and electricity bill?: Yes Do you have trouble taking care of your child, family member or friend?: No Do you have trouble with day-to-day activities such as bathing, preparing meals, shopping, managing finances, etc.?: No Are you currently unemployed and looking for a job?: No Are you interested in more education?: No Please select the resources that you would like help with: Utilities Currently or been in a relationship where the following occur: No concerns reported THRIVE Score: 1 AUDIT C Alcohol Use Questionnaire (AUDIT-C) 1. How often do you have a drink containing alcohol?: 2-4 times a month 2. How many drinks containing alcohol do you have on a typical day when you are drinking?: 1 or 2 3. How often do you have six or more drinks on one occasion?: Less than monthly Total Score: 3 Score Reviewed/Action Taken: Yes ANTHONY-7 AMB Questionnaire ANTHONY-7 Date ANTHONY - 7 assessed: 02/02/24 Feeling nervous, anxious, or on edge: 1 = Several days Not being able to stop or control worryin = Several days Worrying too much about different things: 1 = Several days Trouble relaxin = Several days Being so restless that it is hard to sit still: 1 = Several days Becoming easily annoyed or irritable: 1 = Several days Feeling afraid as if something awful might happen: 1 = Several days Total ANTHONY-7 score (0-4 normal; 5-9 mild; 10-14 moderate; 15-21 severe): 7 Source: Developed by Drs. Brandin Morales, Gilma Mayo, Tee Lawrence and colleagues, with an educational daniel from [employer]. ANTHONY-7 Assessment Billing ANTHONY-7 Assessment Tool: ANTHONY-7 Assessment 83390 Review of Systems Const Reports as per HPI Physical exam (Primary Care) Vital Signs: Last Vital Signs Pulse 87 02/02/24 11:21 BP 132/88 02/02/24 11:21 Pulse Ox 98 02/02/24 11:21 Oxygen Delivery Method Room Air 02/02/24 11:21 BMI result Body Mass Index 30.6 Tobacco/Smoking Status: Tobacco use Status Tobacco use date assessed 02/02/24 02/02/24 11:23 Patient Tobacco Use Status Current everyday Tobacco 02/02/24 11:21 Tobacco use type Cigarette 02/02/24 11:21 e-Cigarette/Vaping Use Never Used 02/02/24 11:21 Thrive Assessment: Date of Thrive Assessment Date Thrive assessed 02/02/24 02/02/24 11:23 Currently or been in a relationship where the following occur: No concerns reported Const General: cooperative Orientation/consciousness: patient oriented x3 Resp Effort & Inspection: normal respiratory effort Auscultation: clear to auscultation bilaterally Cardio Rate: regular rate Rhythm: regular rhythm Heart sounds: S1 normal heart sound present, S2 normal heart sound present and no murmurs Neuro General: patient oriented x3 Extrem Other: + sensation with use of monofilament, intact bilat Psych Appearance: grossly normal Mental Status: mental status grossly normal Speech and movement: Normal speech and movement present Affect: normal affect Attitude: cooperative Thought process: Normal thought process present Thought content: Normal thought content present Insight: Good insight present (Psych) Judgement: Good judgement present (Psych) Assessment and Plan Assessment & Plan (1) Uncontrolled diabetes mellitus with hyperglycemia: Code(s): E11.65 - Type 2 diabetes mellitus with hyperglycemia Plan: Starting farxiga (2) Vasectomy evaluation: Code(s): Z30.09 - Encounter for other general counseling and advice on contraception Plan: Referred to urology (3) Screening for colon cancer: Code(s): Z12.11 - Encounter for screening for malignant neoplasm of colon Plan: Referred to GI Plan The patient agreed to the use of a medical authorization specialist for this encounter. Scribed for CHERY Yeboah by eleazar Tabares scribe, on 02/02/2024 at 11:40 EST. Orders: Orders Microalbumin, Random (w Creat) Today E11.65 - Type 2 diabetes mellitus with hyperglycemia Referrals Gastroenterology Referral Z12.11 - Encounter for screening for malignant neoplasm of colon Urology Referral Z30.09 - Encounter for other general counseling and advice on contraception Medications: New dapagliflozin propanediol (Farxiga) 5 mg PO DAILY 90 tabs 0RF Refilled lisinopril increased dose 5 mg PO DAILY 90 tabs 0RF 90 days famotidine 40 mg PO BEDTIME 90 tabs 0RF metformin ER 1,000 mg (2 x 500 mg) PO BID 120 tabs 2RF 30 days pantoprazole 40 mg PO DAILY 90 tabs 0RF rosuvastatin 10 mg PO .qhs 90 tabs 0RF Coding Level of Care Code Est Pt Level 3 (53129) Diagnoses Uncontrolled diabetes mellitus with hyperglycemia E11.65 Vasectomy evaluation Z30.09 Screening for colon cancer Z12.11 Additional Codes ANTHONY-7 Assessment Billing - ANTHONY-7 Assessment Tool: ANTHONY-7 Assessment [id number] ([id number])"
== END 2024-02-02 12:07 | disposition home or self-care (01) ==
LOC: HO.HMCC 10:58
PROVIDERS: PCP Nurse Practitioner Family; Visit Provider Nurse Practitioner Family
DX: E11.65 Type 2 diabetes mellitus with hyperglycemia (principal); Z30.09 Encounter for other general counseling and advice on contraception

== ENCOUNTER → 2024-02-02 10:58 | Outpatient (BNVA) | payer OTHER, SELFPAY | PROVIDERS: PCP Nurse Practitioner Family; Visit Provider Nurse Practitioner Family | DX: E11.65 Type 2 diabetes mellitus with hyperglycemia (principal); I10 Essential (primary) hypertension; Z30.09 Encounter for other general counseling and advice on contraception; Z79.84 Long term (current) use of oral hypoglycemic drugs; Z79.899 Other long term (current) drug therapy | CPT/HCPCS: 96127 ==

== ENCOUNTER 2024-02-29 15:06 | Inpatient (IN) | payer OTHER, SELFPAY ==
[2024-02-29 15:13] VITALS: BP 124/84; PULSE 91; RESP 22; TEMP 37.2; O2SAT 98; BMI 27.4
--- NOTE | 2024-02-29 15:15 | ED.PSYCH ---
HPI - Psych General Chief Complaint: Psychiatric Symptoms Stated Complaint: SI Time Seen by Provider: 02/29/24 16:11 Source: patient, RN notes reviewed and old records reviewed Mode of arrival: ambulatory Limitations: other (Naye, uncooperative) History of Present Illness ED Provider: Jarrod HPI Narrative: 44-year-old male with no diagnosed medical history presents for evaluation of suicidal thoughts. The patient has been waiting to see a psychiatrist, he was recently started on Wellbutrin by his PCP and was switched to Lexapro about 3 months ago. The patient admitted to triage staff that he has been feeling Lexapro and going to work every day. For the last 4 or 5 days he reported that he ?did not give a shit about life. ? The triage staff, the patient was laughing inappropriately warmth discussing this. He admits to drinking alcohol heavily, approximately 25 nips of whiskey and also using cocaine use been using his 's Adderall inappropriately. His last alcoholic beverage was about 20 minutes prior to arrival. Patient's family called [employer] stating the patient was traveling [address] an [address] which the patient admits to doing. Prior to my evaluation the patient, he attempted to elope from the emergency department. When I went to discuss the patient, he was uncooperative demanding to ?see the recording where I said I wanted to kill myself. ? I explained to the patient that we do not have any audio or visual recording inpatient areas. The patient does admit that he has suicidal thoughts but states ?everybody has these, I do not see the problem. ? The patient was eventually cooperative to walk back to his patient care area. He was placed on a section 12 Related Data Home Medications ?Medication ?Instructions ?Recorded ?Confirmed escitalopram oxalate 5 mg tablet 5 mg PO DAILY 01/21/24 02/29/24 Previous Rx's ?Medication ?Instructions ?Recorded albuterol sulfate 90 mcg/actuation 2 puff inhalation Q4-6H PRN 06/10/22 aerosol inhaler Shortness Of Breath Or Wheezing #8.5 grams sucralfate 1 gram tablet 1 g PO BID #180 tabs 06/17/23 famotidine 40 mg tablet 40 mg PO BEDTIME #90 tabs 02/02/24 lisinopril 5 mg tablet 5 mg PO DAILY 90 days #90 tabs 02/02/24 metformin 500 mg tablet,extended 1,000 mg (2 x 500 mg) PO BID 30 02/02/24 release 24 hr days #120 tabs pantoprazole 40 mg tablet,delayed 40 mg PO DAILY #90 tabs 02/02/24 release rosuvastatin 10 mg tablet 10 mg PO .qhs #90 tabs 02/02/24 Allergies Allergy/AdvReac Type Severity Reaction Status Date / Time metronidazole [From Flagyl] Allergy Severe Anaphylaxis Verified 02/29/24 15:18 varenicline [From Chantix] Allergy Severe severe Verified 02/29/24 15:18 stomach pain weird dreams bee pollen [BEE STINGS] Allergy Intermediate SWELLING Verified 02/29/24 15:18 hydromorphone [HYDROMORPHONE] Allergy Intermediate VOMITING Verified 02/29/24 15:18 barium sulfate AdvReac Severe Severe Verified 02/29/24 15:18 stomach pain SHELLFISH Allergy Severe Anaphylaxis Uncoded 02/29/24 15:18 ORANGE #5 DYE Allergy Mild HIVES Uncoded 02/29/24 15:18 Review of Systems Constitutional: Constitutional: Denies anorexia, Denies body ache(s), Denies chills and Denies fever(s) Cardiovascular: Cardiovascular: Denies chest pain and Denies dyspnea Respiratory: Respiratory: Denies cough and Denies dyspnea Gastrointestinal: Gastrointestinal: Denies abdominal pain Psychiatric: Psychiatric: Reports depression and Reports suicidal ideation [facility] Past Medical History Medical History Elevated cholesterol HTN (hypertension) Arthritis Low back pain Loud snoring Hiatal hernia PUD (peptic ulcer disease) Surgical History History of endoscopy Family History Family History Father No problems noted. Mother Diabetes mellitus Brother No problems noted. Sister No problems noted. Son No problems noted. Daughter No problems noted. Social History Social History Housing: House Are you a primary healthcare architect to a significant other at home: No Do you presently have visiting nurse or other home services: No Alcohol intake: current Alcohol intake frequency: 3 or more drinks per day Alcohol type: hard liquor Comment: aware of trip hazard Patient Tobacco Use Status: Current everyday Tobacco user Tobacco use type: Cigarette Cigarette Packs Per Day: 1 Cigarettes Per Day: 20 Years Smoked: 11 Smoked in Last 30 Days: Yes e-Cigarette/Vaping Use: Never Used Second Hand Smoke Exposure: No Use of substances other than those prescribed or required for medical reasons: Yes Substance Use Type: Crack/Cocaine Advance Directives: No Advance Directives Information Provided: Yes Do you have a plan to hurt others: No Plan service: No Current occupational status: employed Current occupation: [employer] Current occupational exposures/hazards: No Cognitive needs: No Hearing needs: No Vision needs: No Physical Exam Vital Signs: Vital Signs: Last Vital Signs Temp 97.6 F 03/02/24 20:16 Pulse 61 03/02/24 20:16 Resp 18 03/02/24 20:16 BP 116/70 03/02/24 20:16 Pulse Ox 97 03/02/24 20:16 O2 Del Method Room Air 03/02/24 20:16 BMI result Body Mass Index 27.4 Const: General: healthy appearing, comfortable, no acute distress, alert and awake Nutritional Appearance: well nourished Orientation/consciousness: patient oriented x3 HEENT: Head: Yes normocephalic and Yes atraumatic Eyes: Eyelids: Yes eyelids normal Conjunctivae: conjunctivae normal Sclerae: sclerae normal Corneas: corneas normal Pupils: Equal, round and reactive pupils present EOM: EOMs intact bilaterally Neck: Neck: Yes full ROM Resp: Effort & Inspection: normal respiratory effort, able to speak in complete sentences and not labored Skin: General skin exam: elasticity normal Neuro: General: patient oriented x3 Cranial nerves: Yes Equal, round and reactive pupils present and Yes Bilaterally intact EOM present Psych: Appearance: grossly normal Speech and movement: Psychomotor agitation in speech present Affect: Hostile affect present Thought content: Suicidality present Insight: Fair insight present (Psych) Judgement: Fair judgement present (Psych) Course Course Course Narrative: This is an RME: Additional HPI, ROS, PE not included below will be deferred to primary provider. RME assessment and note performed by: Carli Ledezma PA-C This is 44 year old male who presents to the ER with complaints of suicidal ideation. He reports no known diagnosis of mental illness but has been on waiting list for 10 months for psychiatrist. He was on wellbutrin rx'd by his PCP, and was switched to lexapro proximally 3 months ago. He states that he was feeling well on the Lexapro, and was able to get to work every day. He states that after 4-5 days he ?did not give a shit? about his life. He states that this transition caused him to start drinking approximately 20-25 nips of fireball, he also reports that he was using cocaine. He also endorses that he has been using his 's Adderall as well. Last alcoholic beverage was 20 minutes ago. Expect was called in by [facility] and states that they were told he was traveling 120 [address] an [address]. Patient also admits that he was driving 120 miles an hour down [employer]. He reports that he does care his life. He does report that his and his son are ? everything to him?. Denies history of alcohol withdrawal seizures. Patient manic laughing. Went to [facility] where he was ?given the run around by a doctor and stated that there was nothing that they could do and he would be waiting for a long time?, he left [facility] and arrived here. Advised charge nurse to bring patient back danny Plan: Labs, U tox further ER evaluation Reevaluation(s) Reevaluation #1: I was informed by nursing staff that the patient's called and radiates concerned that the patient has been recently threatening the life the patient's herself as well as their 3-year-old daughter. Time: 17:20 Reevaluation #2: 03/01/2024 at 07:19 hours,Dr. Junior Gonzalez's start physician observation note: The patient was been in the emergency department for 16 hours. Patient presented with suicidal ideation with a plan. Patient was currently on a Section 12 and is waiting to be seen by the care team. There was no reported incidents on this patient by the overnight nursing staff. The patient will remain in the emergency department Behavioral Health Unit until disposition can be determined or until patient's symptoms improve over time. Reevaluation #3: Patient remained stable overnight vital signs stable he is on a section 12 for SI waiting for psych dispo Time: 06:27 Additional Reevaluation(s): MARIA DE JESUS 03/03/24 Physician observation continued. VS stable, inpatient bed search, no acute events overnight Consultations Consultation #1: MARIA DE JESUS 03/03/24 observation care revealed that the patient does meet psychiatric necessity for hospitalization. final disposition discussed with the patient. The patient completed observation care at 1256pm Medications Administered Generic Name Dose Route Start Last Admin Trade Name Freq PRN Reason Stop Dose Admin Atorvastatin Calcium 40 mg 02/29/24 21:00 03/02/24 21:30 Atorvastatin Calcium 40 Mg Tablet PO 40 mg BEDTIME ILYA Administration Escitalopram Oxalate 5 mg 03/01/24 09:00 03/03/24 09:17 Escitalopram Oxalate 5 Mg Tablet PO 5 mg DAILY ILYA Administration Famotidine 40 mg 02/29/24 21:00 03/02/24 21:29 Famotidine 20 Mg Tablet PO 40 mg BEDTIME ILYA Administration Lisinopril 5 mg 03/01/24 09:00 03/03/24 08:45 Lisinopril 5 Mg Tablet PO 5 mg DAILY ILYA Administration Protocol Metformin HCl 1,000 mg 02/29/24 21:00 03/03/24 08:45 Metformin Hcl Er 500 Mg Tab.Er.24h PO 1,000 mg BID ILYA Administration Omeprazole 20 mg 03/01/24 06:30 03/03/24 08:45 Omeprazole 20 Mg Capsule.Dr PO 20 mg DAILY@0630 ILYA Administration Sucralfate 1 gm 02/29/24 21:00 03/03/24 09:17 Sucralfate 1 Gm Tablet PO 1 gm BID LIYA Administration Discontinued Medications Generic Name Dose Route Start Last Admin Trade Name Freq PRN Reason Stop Dose Admin Loperamide HCl 2 mg 03/02/24 14:28 03/02/24 14:59 Loperamide Hcl 2 Mg Capsule PO 03/02/24 14:29 2 mg ONCE ONE Administration Medical Decision Making Medical Decision Making MDM Narrative: 44-year-old male presents for evaluation of suicidal ideation. The patient is uncooperative this time. I explained to him thoroughly why he is on a section 12 that he is expressing substantial risk to himself. He also admits to drinking 20 nips of whiskey today. The patient will require medical clearance and care team evaluation. Differential Diagnosis Differential Diagnoses: The differential diagnosis associated with the presentation includes Suicidal ideation Naye Schizophrenia Bipolar disorder Depressive disorder Lab Data 02/29/24 17:08 10/14/24 17:08 Labs: Lab Results 02/29/24 02/29/24 02/29/24 Range/Units 17:08 17:24 17:44 WBC 5.8 (4.8-10.8) X10*3/uL RBC 5.52 (4.60-5.80) X10*6/uL Hgb 16.9 (14.0-18.0) g/dl Hct 49.1 (42.0-52.0) % MCV 88.9 (80.0-98.0) fL MCH 30.6 (27.0-33.0) pg MCHC 34.4 (31.0-36.0) g/dl RDW 12.1 (11.0-16.0) % Plt Count 239 (160-400) X10*3/uL MPV 9.6 (9.4-12.4) fL Immature Gran % (Auto) 0.3 (0.0-0.4) % Neut % (Auto) 53.9 (45-73) % Lymph % (Auto) 35.6 (20-40) % [place] % (Auto) 7.2 (2-11) % Eos % (Auto) 2.7 (0-4) % Baso % (Auto) 0.3 (0-2) % Lymph # (Auto) 2.1 (1.2-4.9) X10*3/uL [place] # (Auto) 0.4 (0.1-1.2) X10*3/uL Eos # (Auto) 0.2 (0.0-0.4) X10*3/uL Baso # (Auto) 0.0 (0.0-0.2) X10*3/uL Abs Immat Gran (auto) 0.02 (0.00-0.03) X10*3/uL Absolute Neuts (auto) 3.1 (2.0-8.3) x10*3/uL Absolute Nucleated RBC 0.000 (0.0-0.012) X10*3/uL Nucleated RBC % (auto) 0.0 (0.0-0.2) /100WBC Sodium 142 (135-145) mmol/L Potassium 3.9 (3.3-5.1) mmol/L Chloride 106 (96-108) mmol/L Carbon Dioxide 26 (22-29) mmol/L Anion Gap 14 (12-20) BUN 10 (9-16) mg/dL Creatinine 0.90 (0.5-1.4) mg/dL Estim Creat Clear Calc 125.9 Estimated GFR > 60 POC Glucose 238 H (60-115) mg/dL Random Glucose 225 H (60-115) mg/dL Calcium 9.3 D (8.4-10.2) mg/dL Total Bilirubin 0.3 (0.0-1.0) mg/dL Direct Bilirubin 0.1 (0.0-0.5) mg/dL AST 121 H (5-37) U/L ALT 168 H (0-40) U/L Alkaline Phosphatase 111 (39-117) U/L Total Protein 7.5 (6.5-8.0) g/dL Albumin 4.5 (3.5-5.0) g/dL Urine Color Yellow Urine Appearance Clear Urine pH 5.5 (5.0-9.0) Ur Specific [place] 1.025 (1.005-1.025) Urine Protein Negative (Neg-Trace) mg/dL Urine Glucose (UA) >=1000 H (Negative) mg/dL Urine Ketones Trace (Negative) mg/dL Urine Blood Negative (Negative) Urine Nitrite Negative (Negative) Ur Leukocyte Esterase Negative (Negative) Urine RBC 0-2 (0-2) /HPF Urine WBC 0-5 (0-5) /HPF Ur Squamous Epith Cells 0-2 (0-2) /HPF Urine Bacteria None Seen (None Seen) Hyaline Casts 0-2 (0-2) /LPF Salicylates < 5.0 L (15-30) mg/dL Urine Opiates Screen Not Detected (Not Detect) Ur Buprenorphine Scrn Not Detected (Not Detect) ng/mL Ur Oxycodone Screen Not Detected (Not Detect) ng/mL Urine Methadone Screen Not Detected (Not Detect) ng/mL Urine Fentanyl Screen Not Detected (Not Detect) Ur Barbiturates Screen Not Detected (Not Detect) Ur Phencyclidine Scrn Not Detected (Not Detect) Ur Amphetamines Screen Not Detected (Not Detect) U Benzodiazepines Scrn Not Detected (Not Detect) Urine Cocaine Screen POSITIVE H (Not Detect) U Marijuana (THC) Screen Not Detected (Not Detect) Ethyl Alcohol 157 mg/dL COVID-19 ([facility]) (Negative) COVID-19 Clin Com 03/01/24 03/02/24 Range/Units 13:22 09:43 WBC (4.8-10.8) X10*3/uL RBC (4.60-5.80) X10*6/uL Hgb (14.0-18.0) g/dl Hct (42.0-52.0) % MCV (80.0-98.0) fL MCH (27.0-33.0) pg MCHC (31.0-36.0) g/dl RDW (11.0-16.0) % Plt Count (160-400) X10*3/uL MPV (9.4-12.4) fL Immature Gran % (Auto) (0.0-0.4) % Neut % (Auto) (45-73) % Lymph % (Auto) (20-40) % [place] % (Auto) (2-11) % Eos % (Auto) (0-4) % Baso % (Auto) (0-2) % Lymph # (Auto) (1.2-4.9) X10*3/uL [place] # (Auto) (0.1-1.2) X10*3/uL Eos # (Auto) (0.0-0.4) X10*3/uL Baso # (Auto) (0.0-0.2) X10*3/uL Abs Immat Gran (auto) (0.00-0.03) X10*3/uL Absolute Neuts (auto) (2.0-8.3) x10*3/uL Absolute Nucleated RBC (0.0-0.012) X10*3/uL Nucleated RBC % (auto) (0.0-0.2) /100WBC Sodium (135-145) mmol/L Potassium (3.3-5.1) mmol/L Chloride (96-108) mmol/L Carbon Dioxide (22-29) mmol/L Anion Gap (12-20) BUN (9-16) mg/dL Creatinine (0.5-1.4) mg/dL Estim Creat Clear Calc Estimated GFR POC Glucose 225 H (60-115) mg/dL Random Glucose (60-115) mg/dL Calcium (8.4-10.2) mg/dL Total Bilirubin (0.0-1.0) mg/dL Direct Bilirubin (0.0-0.5) mg/dL AST (5-37) U/L ALT (0-40) U/L Alkaline Phosphatase (39-117) U/L Total Protein (6.5-8.0) g/dL Albumin (3.5-5.0) g/dL Urine Color Urine Appearance Urine pH (5.0-9.0) Ur Specific [place] (1.005-1.025) Urine Protein (Neg-Trace) mg/dL Urine Glucose (UA) (Negative) mg/dL Urine Ketones (Negative) mg/dL Urine Blood (Negative) Urine Nitrite (Negative) Ur Leukocyte Esterase (Negative) Urine RBC (0-2) /HPF Urine WBC (0-5) /HPF Ur Squamous Epith Cells (0-2) /HPF Urine Bacteria (None Seen) Hyaline Casts (0-2) /LPF Salicylates (15-30) mg/dL Urine Opiates Screen (Not Detect) Ur Buprenorphine Scrn (Not Detect) ng/mL Ur Oxycodone Screen (Not Detect) ng/mL Urine Methadone Screen (Not Detect) ng/mL Urine Fentanyl Screen (Not Detect) Ur Barbiturates Screen (Not Detect) Ur Phencyclidine Scrn (Not Detect) Ur Amphetamines Screen (Not Detect) U Benzodiazepines Scrn (Not Detect) Urine Cocaine Screen (Not Detect) U Marijuana (THC) Screen (Not Detect) Ethyl Alcohol mg/dL COVID-19 ([facility]) Negative (Negative) COVID-19 Clin Com See Note Discharge Plan Discharge Clinical Impression: Suicidal ideation, Alcohol abuse Patient Disposition: Still a Patient Interventions: [place]-Suicide Risk Severity Scale Last Done: 03/02/24 21:14
[2024-02-29 16:09] VITALS: BP 119/69; PULSE 85; RESP 20; O2SAT 97
--- NOTE | 2024-02-29 16:25 | PC.NURSE ---
Pt. talking with this RN for appx. 20 minutes. States that he has a ton of life stressors in his life and doesn't see a way out or a way that the stressors could get any better. States that he isn't actually suicidal, but just wouldn't mind going to sleep and never waking up . Security at bedside for changeover.
--- NOTE | 2024-02-29 16:55 | PC.NURSE ---
Pt. on Section 12 per KATINA Smith.
--- NOTE | 2024-02-29 17:05 | PC.NURSE ---
Report called to Martina Moore RN in the pod. Pt. transferred to pod for repeatedly taunting PA, using foul language
--- NOTE | 2024-02-29 17:07 | PC.NURSE ---
pt presents to the pod w/ security. increasingly agitated/angry/yelling at staff. pt notified/aware of hospital protocol in regards to obtaining blood work and urine. pt seemingly upset stating that he is refusing all work until he speaks with a doctor. MD/PA notified/aware. plan of care ongoing.
--- NOTE | 2024-02-29 17:21 | PC.NURSE ---
Pt.'s called, stating that pt. has been making statements about wanting to kill her and their three year old son. PA aware
--- NOTE | 2024-02-29 17:26 | PC.NURSE ---
pt agreeable to obtain labs/send urine. specimen's sent to lab at this time. pt currently apologizing for behavior. requesting to speak w/ MD. pt notified that Octavio AMBRIZ is covering provider at this time. refusing to speak w/ Octavio and only wants to speak w/ MD. pt becoming more calm/cooperative at this time. plan of care ongoing.
[2024-02-29 17:29] LABS: MANUAL DIFF FLAG NO
[2024-02-29 17:30] LABS: Basophils Percent Auto 0.3 % (0-2); Eosinophils Absolute Auto 0.2 X10*3/uL (0.0-0.4); Eosinophils Percent Auto 2.7 % (0-4); Hematocrit 49.1 % (42.0-52.0); Hemoglobin 16.9 g/dl (14.0-18.0); Imm Gran Abs Auto 0.02 X10*3/uL (0.00-0.03); Imm Gran Pct Auto 0.3 % (0.0-0.4); Lymphocytes Absolute Auto 2.1 X10*3/uL (1.2-4.9); Lymphocytes Percent Auto 35.6 % (20-40); Mean Corpuscular HGB Conc 34.4 g/dl (31.0-36.0); Mean Corpuscular Hemoglobin 30.6 pg (27.0-33.0); Mean Corpuscular Volume 88.9 fL (80.0-98.0); Mean Platelet Volume 9.6 fL (9.4-12.4); Monocytes Absolute Auto 0.4 X10*3/uL (0.1-1.2); Monocytes Percent Auto 7.2 % (2-11); Neutrophils Absolute Auto 3.1 x10*3/uL (2.0-8.3); Neutrophils Percent Auto 53.9 % (45-73); Platelet Count 239 X10*3/uL (160-400); Red Blood Count 5.52 X10*6/uL (4.60-5.80); Red Cell Distribution Width 12.1 % (11.0-16.0); White Blood Count 5.8 X10*3/uL (4.8-10.8)
[2024-02-29 17:44] LABS: Alanine Aminotransferase 168 U/L (0-40); Albumin Level 4.5 g/dL (3.5-5.0); Alkaline Phosphatase 111 U/L (39-117); Anion Gap 14 (12-20); Aspartate Amino Transferase 121 U/L (5-37); Bilirubin Direct 0.1 mg/dL (0.0-0.5); Bilirubin Total 0.3 mg/dL (0.0-1.0); Blood Urea Nitrogen 10 mg/dL (9-16); Calcium 9.3 mg/dL (8.4-10.2); Carbon Dioxide 26 mmol/L (22-29); Chloride 106 mmol/L (96-108); Creatinine Clr Calc Pharmacy 125.9; Estimated Glomerular Filt Rate > 60; Ethanol 157 mg/dL; Glucose Random 225 mg/dL (60-115); Potassium 3.9 mmol/L (3.3-5.1); Salicylate < 5.0 mg/dL (15-30); Sodium 142 mmol/L (135-145); Total Protein 7.5 g/dL (6.5-8.0)
[2024-02-29 17:45] LABS: Appearance Urine Clear; Color Urine Yellow; Glucose Urine UA >=1000 mg/dL (Negative); Leukocyte Esterase Urine Negative (Negative); Nitrite Urine Negative (Negative); PH 5.5 (5.0-9.0); Specific Gravity - Urine 1.025 (1.005-1.025); UMIC TRIGGER UACC YES; Urine Blood Negative (Negative); Urine Ketones Trace mg/dL (Negative); Urine Protein Negative (Neg-Trace)
[2024-02-29 17:49] LABS: Glucose, Whole Blood 238 mg/dL (60-115)
[2024-02-29 17:57] LABS: Amphetamine Screen Urine Not Detected (Not Detect); Barbiturates, Urine Not Detected (Not Detect); Benzodiazepines Screen Urine Not Detected (Not Detect); Buprenorphine Scr Not Detected (Not Detect); Cannabinoid Screen Urine Not Detected (Not Detect); Cocaine Screen Urine POSITIVE (Not Detect); Fentanyl, urine Not Detected (Not Detect); Methadone Screen, Urine Not Detected (Not Detect); Opiate Screen Urine Not Detected (Not Detect); Oxycodone Screen Urine Not Detected (Not Detect); Phencyclidine Screen Urine Not Detected (Not Detect)
[2024-02-29 18:59] LABS: Bacteria Urine None Seen (None Seen); Hyaline Casts Urine 0-2 /LPF (0-2); RBC Urine 0-2 /HPF (0-2); Squamous Epithelial Cell Urine 0-2 /HPF (0-2); WBC Urine 0-5 /HPF (0-5)
--- NOTE | 2024-02-29 19:21 | HE.PHANOTE ---
MED REC Med rec was continued by provider. List was done by RN. Pharmacy is currently operating on holiday hours, no Med rec [facility] or tech avliable. I reached out to provider regarding med rec discrepancies however provider wants to continue as he suspected non compliance.
--- NOTE | 2024-02-29 20:33 | MHC.CARE ---
Pt was assessed by the CARE team, disposition was discussed with provider. Pt was placed on a section 12 and will be an IPLOC bed search at this time for containment, mood stabilization, safety and medication evaluation. If placement is not found, Pt will be reassessed for a mental status exam tomorrow.
--- NOTE | 2024-02-29 20:35 | PC.NURSE ---
Patient awake and alert, sitting up on chair. This RN approached patient to give patient his evening medications, patient began yelling at this RN, stating he wants to see his doctor or Kade, Kade made aware. Patient states he is not supposed to be here, states he is supposed to be at detox and he is not a moron and he doesnt want to talk to a bunch of idiots. patient states he was never offered a diabetic meal, this RN offered patient food and evening meds, patient yelling at this RN asking if Kade is going to tell him he is going to detox, this RN stated that Kade will talk with him, patient states he does not need any thing from this rfp writer and there is no reason for this rfp writer to continue to be talking to him.
--- NOTE | 2024-02-29 21:51 | PC.NURSE ---
Patient resting, watching TV. This RN asked patient if he needs anything, patient becoming agitated, again stating he is not supposed to be here and that he is supposed to be at detox, denies SI/HI states that he is just angry. again refusing evening meds, states that he will just vomit them up because he has not eaten anything all day. Given diet gingerale and crackers per request.
[2024-02-29] MEDS: Famotidine 20 MG TABLET 40 MG PO (22:52)
--- NOTE | 2024-03-01 | ECG_ITS ---
Test Reason : rule out QTC prolongation Blood Pressure : / mmHG Vent. Rate : 081 BPM Atrial Rate : 081 BPM P-R Int : 144 ms QRS Dur : 086 ms QT Int : 380 ms P-R-T Axes : 075 043 053 degrees QTc Int : 441 ms Normal sinus rhythm Normal ECG When compared with ECG of 02-FEB-2023 00:02, No significant change was found Referred By: Junior Gonzalez Electronically Signed By:SRIDHAR BYRNES
[2024-03-01] MEDS: Omeprazole 20 MG CAPSULE.DR PO (05:40)
--- NOTE | 2024-03-01 08:20 | PC.NURSE ---
Assumed care of patient at 0645, patient appears to be in no apparent distress this morning, sleeping, respirations even and unlabored. Continue plan of care for inpatient bedsearch
[2024-03-01 08:21] VITALS: RESP 16
[2024-03-01 08:54] VITALS: PULSE 74; RESP 16; TEMP 36.6; O2SAT 98
[2024-03-01] MEDS: metFORMIN HCl ER 500 MG TAB.ER.24H 1000 MG PO ×2 (09:19→20:57)
[2024-03-01] MEDS: Sucralfate 1 GM TABLET PO ×2 (09:19→20:58)
[2024-03-01] MEDS: Escitalopram Oxalate 5 MG TABLET PO (09:19)
[2024-03-01] MEDS: lisinopriL 5 MG TABLET PO (09:19)
--- NOTE | 2024-03-01 09:35 | PC.NURSE ---
Pt provided with morning medication, pt stated to this RN that don't look like my fucking medications but then proceeded to take all meds without issue. this RN attempted to verify with patient what medications he takes on a daily basis however pt stated i dont want to fucking talk about it . Pt now laying on couch watching TV
--- NOTE | 2024-03-01 09:42 | PHA.MEDREC ---
Pharmacy Consult ? Medication Reconciliation Pharmacy has reviewed the medication reconciliation done by nursing.
--- NOTE | 2024-03-01 12:21 | PC.NURSE ---
Pt moved to 4 for comfort due to sleeping on couch for the past day
[2024-03-01 13:26] LABS: Glucose, Whole Blood 225 mg/dL (60-115)
[2024-03-01 15:55] VITALS: RESP 18
[2024-03-01 19:56] VITALS: BP 114/84; PULSE 69; RESP 16; TEMP 36.5; O2SAT 97
[2024-03-01] MEDS: Famotidine 20 MG TABLET 40 MG PO (20:57)
[2024-03-01] MEDS: Atorvastatin Calcium 40 MG TABLET PO (20:58)
--- NOTE | 2024-03-01 23:36 | PC.NURSE ---
took over care from Jameson Martins, pt sleeping at this time.
[2024-03-02] MEDS: Omeprazole 20 MG CAPSULE.DR PO (06:08)
--- NOTE | 2024-03-02 06:11 | PC.NURSE ---
medicated per mar.
[2024-03-02] MEDS: lisinopriL 5 MG TABLET PO (08:53)
[2024-03-02] MEDS: metFORMIN HCl ER 500 MG TAB.ER.24H 1000 MG PO ×2 (08:53→21:29)
[2024-03-02] MEDS: Escitalopram Oxalate 5 MG TABLET PO (09:42)
[2024-03-02] MEDS: Sucralfate 1 GM TABLET PO ×2 (09:42→21:29)
[2024-03-02 10:16] LABS: COVID-19 Test Negative (Negative); IDNOW Serial# 152EDE1D
[2024-03-02] MEDS: Loperamide HCl 2 MG CAPSULE PO (14:59)
--- NOTE | 2024-03-02 19:15 | PC.NURSE ---
patient appears to remain at rest presently respiratoins are even and unlabored patient appears in no distress.
[2024-03-02 20:16] VITALS: BP 116/70; PULSE 61; RESP 18; TEMP 36.4; O2SAT 97
[2024-03-02] MEDS: Famotidine 20 MG TABLET 40 MG PO (21:29)
[2024-03-02] MEDS: Atorvastatin Calcium 40 MG TABLET PO (21:30)
[2024-03-03] MEDS: metFORMIN HCl ER 500 MG TAB.ER.24H 1000 MG PO (08:45)
[2024-03-03] MEDS: lisinopriL 5 MG TABLET PO (08:45)
[2024-03-03] MEDS: Omeprazole 20 MG CAPSULE.DR PO (08:45)
[2024-03-03] MEDS: Sucralfate 1 GM TABLET PO (09:17)
[2024-03-03] MEDS: Escitalopram Oxalate 5 MG TABLET PO (09:17)
[2024-03-03 12:58] VITALS: BP 119/74; PULSE 66; RESP 18; TEMP 36.9; O2SAT 96
[2024-03-03 13:14] VITALS: BMI 29.8
--- NOTE | 2024-03-03 14:02 | P.HPPS_ITS ---
HPI Date of Service: 03/03/24 Chief Complaint: SI HPI Narrative: per CARE team antonette pt self-[place] [facility]o SI, alcohol misuse, cocaine misuse, adderall misuse. he reported he was having a difficult time dealing with life stressors and had been driving over 100 mph recently. he reported his doctor had told him to c/o SI at hospital and he would be able to get into detox/rehab more quickly. he was reportedly quite dysregulated, uncooperative, and verbally abusive in the ED. he reportedly had expressed thoughts about killing their 3 yo son and the entire family, but has never threatened to do the same. it should be noted he was intoxicated at presentation and often during verbal conflicts with his . on interview with MD after several days in the ED, pt denies SI or any intention to harm himself or others. he states he just wants rehab/addiction treatment and not to be on a locked mental health unit. he does not consider himself DDx. he was educated re DDx Tx and that mood and anxiety disorders could be treated here as well as addiction, that referral from hospital would likely open doors for him more quickly than from outpatient, etc. he was firm in his feeling he did not belong on inpatient mental health unit, assured MD of his safety, and indicated he would not sign CV and stay voluntarily. MD agreed to pt's discharge, as pt did not at that time present as sufficiently dangerous so as to warrant being held against his will. 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 lives with , 3-yo son, and his brother. Substance History: alcohol - POS BAL at presentation. regularly, heavily. interested in rehab. cocaine - utox POS. reports only using weekends, recreationally. adderall - reports he took his 's adderall ONE TIME only. Trauma History: reported pt has alluded to childhood trauma from pt's father. pt was evasive on this topic. Diagnostics Vital Signs (24Hr): Vital Signs - 24 hr 03/02/24 20:16 03/03/24 12:58 Temperature 97.6 F 98.5 F Pulse Rate 61 66 Respiratory Rate 18 18 Blood Pressure 116/70 119/74 Pulse Oximetry 97 96 Oxygen Delivery Method Room Air Room Air BMI result Body Mass Index 29.8 Labs 02/29/24 17:08 02/29/24 17:08 Labs: Laboratory Results - last 48 hr 03/02/24 09:43 COVID-19 ([facility]) Negative COVID-19 Clin Com See Note Meds/Allergies Meds Home Medications ?Medication ?Instructions ?Recorded ?Confirmed ?Type escitalopram oxalate 5 mg tablet 5 mg PO DAILY 01/21/24 02/29/24 History Allergies Allergies Allergy/AdvReac Type Severity Reaction Status Date / Time metronidazole [From Flagyl] Allergy Severe Anaphylaxis Verified 02/29/24 15:18 varenicline [From Chantix] Allergy Severe severe Verified 02/29/24 15:18 stomach pain weird dreams bee pollen [BEE STINGS] Allergy Intermediate SWELLING Verified 02/29/24 15:18 hydromorphone [HYDROMORPHONE] Allergy Intermediate VOMITING Verified 02/29/24 15:18 barium sulfate AdvReac Severe Severe Verified 02/29/24 15:18 stomach pain SHELLFISH Allergy Severe Anaphylaxis Uncoded 02/29/24 15:18 ORANGE #5 DYE Allergy Mild HIVES Uncoded 02/29/24 15:18 Mental Status Exam Mental Status Exam Narrative: adequately dressed and groomed. cooperative. no PMA/PMR. speech incr rate and amount, decr latency, nml loudness and tone. thoughts linear and logical without delusions or paranoia. affect constricted, hyper-intense, min-labile. mood euthymic. denies SI/SIBI/HI/AVH. Assessment & Plan Assessment & Plan (1) Alcohol use disorder: Status: Acute Code(s): F10.90 - Alcohol use, unspecified, uncomplicated (2) Cocaine use disorder: Status: Acute Code(s): F14.10 - Cocaine abuse, uncomplicated (3) Stimulant use disorder: Status: Acute Code(s): F15.90 - Other stimulant use, unspecified, uncomplicated Plan discharge as per pt request. pt may be at increased risk of harm to self and others when intoxicated, but he is no longer intoxicated and expresses the desire for sobriety and to engage in substance use treatment. he is not felt to be at such elevated risk of harm to self or others at the moment so as to justify involuntarily holding him in the hospital. pt was provided with addiction resources booklet by YAYA Pisano prior to discharge. Patient educated on: diagnosis, medication risk/benefits, substance abuse and therapeutic strategies Reason for continued inpatient stay Substantial Risk for: rapid decompensation Statement Statement: I have reviewed the history and physical and performed a pertinent examination on my patient. No changes have occurred unless specified. If the History and Physical was not performed prior to admission, the Hospitalist's service will be consulted for completing the admission physical. Time Spent With Patient Time: Total time managing care of this patient today __75__ minutes.
--- NOTE | 2024-03-03 14:02 | P.DS_ITS ---
DS: Providers Provider Date of Service: 03/03/24 Date of admission: 03/03/24 12:12 Primary care physician: Lenny Maher [facility] DS: Medications Discharge Medications Home Medications: Home Medications ?Medication ?Instructions ?Recorded ?Confirmed escitalopram oxalate 5 mg tablet 5 mg PO DAILY 01/21/24 02/29/24 Previous Rx's ?Medication ?Instructions ?Recorded albuterol sulfate 90 mcg/actuation 2 puff inhalation Q4-6H PRN 06/10/22 aerosol inhaler Shortness Of Breath Or Wheezing #8.5 grams sucralfate 1 gram tablet 1 g PO BID #180 tabs 06/17/23 famotidine 40 mg tablet 40 mg PO BEDTIME #90 tabs 02/02/24 lisinopril 5 mg tablet 5 mg PO DAILY 90 days #90 tabs 02/02/24 metformin 500 mg tablet,extended 1,000 mg (2 x 500 mg) PO BID 30 02/02/24 release 24 hr days #120 tabs pantoprazole 40 mg tablet,delayed 40 mg PO DAILY #90 tabs 02/02/24 release rosuvastatin 10 mg tablet 10 mg PO .qhs #90 tabs 02/02/24 Mental Status Exam Mental Status Exam Narrative: adequately dressed and groomed. cooperative. no PMA/PMR. speech incr rate and amount, decr latency, nml loudness and tone. thoughts linear and logical without delusions or paranoia. affect constricted, hyper-intense, min-labile. mood euthymic. denies SI/SIBI/HI/AVH. Data Data Completed and Pending Completed studies during hospitalization [Text1]: 02/29/24 02/29/24 02/29/24 17:08 17:24 17:44 WBC 5.8 RBC 5.52 Hgb 16.9 Hct 49.1 MCV 88.9 MCH 30.6 MCHC 34.4 RDW 12.1 Plt Count 239 MPV 9.6 Immature Gran % (Auto) 0.3 Neut % (Auto) 53.9 Lymph % (Auto) 35.6 Gillespie % (Auto) 7.2 Eos % (Auto) 2.7 Baso % (Auto) 0.3 Lymph # (Auto) 2.1 Gillespie # (Auto) 0.4 Eos # (Auto) 0.2 Baso # (Auto) 0.0 Abs Immat Gran (auto) 0.02 Absolute Neuts (auto) 3.1 Absolute Nucleated RBC 0.000 Nucleated RBC % (auto) 0.0 Sodium 142 Potassium 3.9 Chloride 106 Carbon Dioxide 26 Anion Gap 14 BUN 10 Creatinine 0.90 Estim Creat Clear Calc 125.9 Estimated GFR > 60 POC Glucose 238 H Random Glucose 225 H Calcium 9.3 D Total Bilirubin 0.3 Direct Bilirubin 0.1 AST 121 H ALT 168 H Alkaline Phosphatase 111 Total Protein 7.5 Albumin 4.5 Urine Color Yellow Urine Appearance Clear Urine pH 5.5 Ur Specific [place] 1.025 Urine Protein Negative Urine Glucose (UA) >=1000 H Urine Ketones Trace Urine Blood Negative Urine Nitrite Negative Ur Leukocyte Esterase Negative Urine RBC 0-2 Urine WBC 0-5 Ur Squamous Epith Cells 0-2 Urine Bacteria None Seen Hyaline Casts 0-2 Salicylates < 5.0 L Urine Opiates Screen Not Detected Ur Buprenorphine Scrn Not Detected Ur Oxycodone Screen Not Detected Urine Methadone Screen Not Detected Urine Fentanyl Screen Not Detected Ur Barbiturates Screen Not Detected Ur Phencyclidine Scrn Not Detected Ur Amphetamines Screen Not Detected U Benzodiazepines Scrn Not Detected Urine Cocaine Screen POSITIVE H U Marijuana (THC) Screen Not Detected Ethyl Alcohol 157 COVID-19 ([facility]) COVID-19 Clin Com 03/01/24 03/02/24 13:22 09:43 WBC RBC Hgb Hct MCV MCH MCHC RDW Plt Count MPV Immature Gran % (Auto) Neut % (Auto) Lymph % (Auto) Gillespie % (Auto) Eos % (Auto) Baso % (Auto) Lymph # (Auto) Gillespie # (Auto) Eos # (Auto) Baso # (Auto) Abs Immat Gran (auto) Absolute Neuts (auto) Absolute Nucleated RBC Nucleated RBC % (auto) Sodium Potassium Chloride Carbon Dioxide Anion Gap BUN Creatinine Estim Creat Clear Calc Estimated GFR POC Glucose 225 H Random Glucose Calcium Total Bilirubin Direct Bilirubin AST ALT Alkaline Phosphatase Total Protein Albumin Urine Color Urine Appearance Urine pH Ur Specific [place] Urine Protein Urine Glucose (UA) Urine Ketones Urine Blood Urine Nitrite Ur Leukocyte Esterase Urine RBC Urine WBC Ur Squamous Epith Cells Urine Bacteria Hyaline Casts Salicylates Urine Opiates Screen Ur Buprenorphine Scrn Ur Oxycodone Screen Urine Methadone Screen Urine Fentanyl Screen Ur Barbiturates Screen Ur Phencyclidine Scrn Ur Amphetamines Screen U Benzodiazepines Scrn Urine Cocaine Screen U Marijuana (THC) Screen Ethyl Alcohol COVID-19 ([facility]) Negative COVID-19 Clin Com See Note DS: Summary Hospital Course Hospital Course: HPI Narrative: per CARE team antonette pt self-presented to [facility] c/o SI, alcohol misuse, cocaine misuse, adderall misuse. he reported he was having a difficult time dealing with life stressors and had been driving over 100 mph recently. he reported his doctor had told him to c/o SI at hospital and he would be able to get into detox/rehab more quickly. he was reportedly quite dysregulated, uncooperative, and verbally abusive in the ED. he reportedly had expressed thoughts about killing their 3 yo son and the entire family, but has never threatened to do the same. it should be noted he was intoxicated at presentation and often during verbal conflicts with his . on interview with MD after several days in the ED, pt denies SI or any intention to harm himself or others. he states he just wants rehab/addiction treatment and not to be on a locked mental health unit. he does not consider himself DDx. he was educated re DDx Tx and that mood and anxiety disorders could be treated here as well as addiction, that referral from hospital would likely open doors for him more quickly than from outpatient, etc. he was firm in his feeling he did not belong on inpatient mental health unit, assured MD of his safety, and indicated he would not sign CV and stay voluntarily. MD agreed to pt's discharge, as pt did not at that time present as sufficiently dangerous so as to warrant being held against his will. 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 lives with , 3-yo son, and his brother. Substance History: alcohol - POS BAL at presentation. regularly, heavily. interested in rehab. cocaine - utox POS. reports only using weekends, recreationally. adderall - reports he took his 's adderall ONE TIME only. Trauma History: reported pt has alluded to childhood trauma from pt's father. pt was evasive on this topic. Plan discharge as per pt request. pt may be at increased risk of harm to self and others when intoxicated, but he is no longer intoxicated and expresses the desire for sobriety and to engage in substance use treatment. he is not felt to be at such elevated risk of harm to self or others at the moment so as to justify involuntarily holding him in the hospital. pt was provided with addiction resources booklet by YAYA Pisano prior to discharge. Time Spent with Patient Time attestation: Total time managing care of this patient today __75__ minutes. Discharge Plan Discharge Anticipated Discharge Date/Time: 03/03/24 14:03 Patient Disposition: Home, Self-Care Discharge Diagnosis: Alcohol Use Disorder Referrals: Lenny Maher FNP-BC [Primary Care Provider] - 1 Week Discharge Medications: Continued albuterol sulfate 90 mcg/actuation HFA aerosol inhaler 2 puff inhalation Q4-6H PRN (Reason: Shortness Of Breath Or Wheezing) Qty: 8.5 3RF sucralfate 1 gram tablet 1 g PO BID Qty: 180 0RF escitalopram oxalate 5 mg tablet 5 mg PO DAILY metformin 500 mg tablet extended release 24 hr 1,000 mg PO BID 30 Days Qty: 120 2RF pantoprazole 40 mg tablet,delayed release (DR/EC) 40 mg PO DAILY Qty: 90 0RF rosuvastatin 10 mg tablet 10 mg PO .qhs Qty: 90 0RF lisinopril 5 mg tablet 5 mg PO DAILY 90 Days Qty: 90 0RF Rx Instructions: increased dose famotidine 40 mg tablet 40 mg PO BEDTIME Qty: 90 0RF Discharge Orders: Discharge Order (Routine); Ordered 03/03/24 Ordered By: Perez Musa Diet: Diabetic diet Activity on Discharge: As tolerated Stand Alone Forms: Patient Portal Discharge page, Community Support Print Language: Zambian Care Plan Goals: sobriety, improved mood and anxiety Health Concerns: Diabetes Mellitus Plan of Treatment: take medications as prescribed, follow up with mental health and substance abuse treatment Assessment: not at imminent risk of harm to self or others when sober. pt is aware of his potential increased risk of such when intoxicated and is committed to sobriety. Discharge Date/Time: 03/03/24 15:02
--- NOTE | 2024-03-03 15:47 | PC.ADMIT ---
Robert was admitted to [facility] on a 12a for treatment of SI and depression coupled with alcohol and cocaine use. He was discharged immediately after admission per Rhea Musa MD orders. Skin check performed and patient discharged home. Left via own car. Reported feeling safe to leave and discharge.
== END 2024-03-03 15:02 | disposition home or self-care (01) | DRG 774 ==
LOC: HO.ED 03-01 07:17 → HO.PADLT16 03-03 12:27
PROVIDERS: Emergency Medicine; Physician Assistant Medical; Admitting Provider Psychiatry & Neurology Psychiatry; Emergency Provider Emergency Medicine Emergency Medical Services; PCP Nurse Practitioner Family; Visit Provider Psychiatry & Neurology Psychiatry
DX: F10.929 Alcohol use, unspecified with intoxication, unspecified (principal); F14.10 Cocaine abuse, uncomplicated; R45.851 Suicidal ideations; F17.210 Nicotine dependence, cigarettes, uncomplicated; F15.90 Other stimulant use, unspecified, uncomplicated; Z20.822 Contact with and (suspected) exposure to COVID-19; Z71.6 Tobacco abuse counseling; Y90.6 Blood alcohol level of 120-199 mg/100 ml; Z79.84 Long term (current) use of oral hypoglycemic drugs; Z79.899 Other long term (current) drug therapy
CPT/HCPCS: 36415; 80048; 80076; 80179; 80307; 81001; 82947; 85025; 87635; 93005; 99285; S9485

== ENCOUNTER → 2024-03-01 09:53 | Outpatient (BNV) | payer OTHER, SELFPAY | PROVIDERS: Emergency Provider Emergency Medicine Emergency Medical Services; PCP Nurse Practitioner Family; Visit Provider Internal Medicine | DX: Z51.81 Encounter for therapeutic drug level monitoring (principal) | CPT/HCPCS: 93010 ==

== ENCOUNTER → 2024-03-03 12:12 | Outpatient (BNV) | payer OTHER, SELFPAY | PROVIDERS: Admitting Provider Psychiatry & Neurology Psychiatry; Emergency Provider Emergency Medicine Emergency Medical Services; PCP Nurse Practitioner Family; Visit Provider Psychiatry & Neurology Psychiatry | DX: F14.10 Cocaine abuse, uncomplicated (principal); F10.90 Alcohol use, unspecified, uncomplicated; F15.90 Other stimulant use, unspecified, uncomplicated | CPT/HCPCS: 99233; 99499 ==

== ENCOUNTER 2024-03-04 14:54 | Outpatient (AMB) | payer OTHER, SELFPAY ==
--- NOTE | 2024-03-04 15:13 | MHC.AM.SUB ---
Intake Visit Reasons: Intake Allergies metronidazole [From Flagyl] Allergy (Severe, Verified 02/29/24 15:18) Anaphylaxis varenicline [From Chantix] Allergy (Severe, Verified 02/29/24 15:18) severe stomach pain weird dreams bee pollen [BEE STINGS] Allergy (Intermediate, Verified 02/29/24 15:18) SWELLING hydromorphone [HYDROMORPHONE] Allergy (Intermediate, Verified 02/29/24 15:18) VOMITING barium sulfate Adverse Reaction (Severe, Verified 02/29/24 15:18) Severe stomach pain SHELLFISH Allergy (Severe, Uncoded 02/29/24 15:18) Anaphylaxis ORANGE #5 DYE Allergy (Mild, Uncoded 02/29/24 15:18) HIVES HPI HPI Intake: Details: Patient presents for intake and evaluation for alcohol use intake completed by RN and reviewed with patient patient reporting last drink on Thursday of this week baseline irritability and anger somewhat improved with lexapro (new medication from provider) strong family history of AUD (both parents) +trauma history has asked for a leave from work due to mood lability help seeking feeling overwhelmed much of visit was spent discussing and validating patients worsening anxiety and irritability allowing patient to verbalize feelings and challenges/stressors in his life discussed strategies to address this, including PHP/IOP admission discussed naltrexone as a way to address AUD and support his goal of abstinence [facility] Medical History Elevated cholesterol HTN (hypertension) Arthritis Low back pain Loud snoring Hiatal hernia PUD (peptic ulcer disease) Surgical History History of endoscopy Family History Father No problems noted. Mother Diabetes mellitus Brother No problems noted. Sister No problems noted. Son No problems noted. Daughter No problems noted. Social History Household Members: Family Housing: House Are you a primary transitional care manager to a significant other at home: No Do you presently have visiting nurse or other home services: No Alcohol intake: current Alcohol intake frequency: 3 or more drinks per day Alcohol type: hard liquor Comment: aware of trip hazard Patient Tobacco Use Status: Current everyday Tobacco user Tobacco use type: Cigarette Cigarette Packs Per Day: 2 Cigarettes Per Day: 40.0 Years Smoked: 11 e-Cigarette/Vaping Use: Never Used Second Hand Smoke Exposure: No Substance Use Type: Crack/Cocaine service: No Current occupational status: employed Current occupation: [employer] Current occupational exposures/hazards: No Cognitive needs: No Hearing needs: No Vision needs: No Review of Systems Const Reports as per HPI Physical Exam Const General: cooperative, healthy appearing, anxious and well groomed Nutritional Appearance: average body habitus Orientation/consciousness: patient oriented x3 Limitations: no limitations Neuro General: patient oriented x3 Assessment & Plan Assessment & Plan (1) Alcohol use disorder: Code(s): F10.90 - Alcohol use, unspecified, uncomplicated Category: Medical Plan: naltrexone QD provided with information to [facility] recovery--encouraged to call and schedule intake appt follow up to be determined --if patient is admitted to [facility] --also to take into consideration is patient's copay of $60 Medications: New naltrexone 1/2 tab daily for three days, then increase to one tab daily 50 mg PO DAILY 30 tabs 0RF
== END 2024-03-04 15:59 | disposition home or self-care (01) ==
PROVIDERS: PCP Nurse Practitioner Family; Visit Provider Nurse Practitioner Psychiatric/Mental Health
DX: F10.90 Alcohol use, unspecified, uncomplicated (principal)
CPT/HCPCS: 99204

== ENCOUNTER → 2024-03-04 14:54 | Outpatient (BNVA) | payer OTHER, SELFPAY | PROVIDERS: PCP Nurse Practitioner Family; Visit Provider Nurse Practitioner Psychiatric/Mental Health ==

== ENCOUNTER 2024-05-04 15:04 | Outpatient (REF) | payer OTHER, SELFPAY ==
[2024-05-04 16:11] LABS: MANUAL DIFF FLAG NO
[2024-05-04 16:12] LABS: Basophils Percent Auto 0.4 % (0-2); Eosinophils Absolute Auto 0.2 X10*3/uL (0.0-0.4); Eosinophils Percent Auto 3.6 % (0-4); Hemoglobin 16.2 g/dl (14.0-18.0); Imm Gran Abs Auto 0.02 X10*3/uL (0.00-0.03); Imm Gran Pct Auto 0.3 % (0.0-0.4); Lymphocytes Absolute Auto 2.3 X10*3/uL (1.2-4.9); Lymphocytes Percent Auto 34.2 % (20-40); Mean Corpuscular HGB Conc 35.2 g/dl (31.0-36.0); Mean Corpuscular Volume 85.2 fL (80.0-98.0); Mean Platelet Volume 10.6 fL (9.4-12.4); Monocytes Absolute Auto 0.5 X10*3/uL (0.1-1.2); Monocytes Percent Auto 7.9 % (2-11); Neutrophils Absolute Auto 3.6 x10*3/uL (2.0-8.3); Neutrophils Percent Auto 53.6 % (45-73); Platelet Count 230 X10*3/uL (160-400); Red Cell Distribution Width 11.6 % (11.0-16.0); White Blood Count 6.7 X10*3/uL (4.8-10.8)
[2024-05-04 16:22] LABS: Appearance Urine Clear; Color Urine Yellow; Glucose Urine UA >=1000 mg/dL (Negative); Leukocyte Esterase Urine Negative (Negative); Nitrite Urine Negative (Negative); PH 6.5 (5.0-9.0); Specific Gravity - Urine 1.025 (1.005-1.025); UMIC TRIGGER UACC YES; Urine Blood Negative (Negative); Urine Ketones Trace mg/dL (Negative); Urine Protein Negative (Neg-Trace)
[2024-05-04 16:27] LABS: Bacteria Urine None Seen (None Seen); Hyaline Casts Urine 0-2 /LPF (0-2); RBC Urine 0-2 /HPF (0-2); Squamous Epithelial Cell Urine 0-2 /HPF (0-2); WBC Urine 0-5 /HPF (0-5)
[2024-05-04 16:32] LABS: Estimated Average Glucose 246 mg/dL; Hemoglobin A1C 360.9761 umol/L; Hemoglobin A1c % 10.2 % (<6.0); Total Hemoglobin (HGBA1C) 4088.7816 umol/L
[2024-05-04 17:02] LABS: Creatinine Urine 176.84 mg/dL; Microalbum/Creatinine Ratio Ur 4.5 ug/mg cr (<30)
[2024-05-04 17:46] LABS: Alanine Aminotransferase 61 U/L (0-40); Albumin Level 4.5 g/dL (3.5-5.0); Alkaline Phosphatase 99 U/L (39-117); Anion Gap 10 (12-20); Aspartate Amino Transferase 31 U/L (5-37); Bilirubin Total 0.4 mg/dL (0.0-1.0); Blood Urea Nitrogen 15 mg/dL (9-16); Calcium 9.9 mg/dL (8.4-10.2); Carbon Dioxide 30 mmol/L (22-29); Chloride 102 mmol/L (96-108); Cholesterol 279 mg/dL (<200); Estimated Glomerular Filt Rate > 60; Glucose Fasting 203 mg/dL (60-99); HDL Cholesterol 33 mg/dL (>40); Potassium 4.3 mmol/L (3.3-5.1); Sodium 138 mmol/L (135-145); Total Protein 7.7 g/dL (6.5-8.0); Triglycerides 659 mg/dL (<150)
[2024-05-04 18:06] LABS: Gamma Glutamyl Transpeptidase 101 U/L (11-51); TSH reflex Free T4 5.42 uIU/mL (0.32-4.0)
[2024-05-04 18:37] LABS: Free T4 (Free Thyroxine) 0.73 ng/dL (0.71-1.85)
[2024-05-05 04:48] LABS: HBsAGNum1 0.38 S/CO (0.00-0.99); Hepatitis A Antibody IgM 0.16 Index (0-0.79); Hepatitis B Core Antibody Nonreactive (Nonreactive); Hepatitis B Surface Antigen Negative (Negative); ~HepC Num1 0.09 S/CO (0.00-0.79); ~Hepatitis A Antibody IgM Nonreactive (Nonreactive); ~Hepatitis B Surface Antibody NONREACTIVE (Nonreactive); ~Hepatitis C Antibody Nonreactive (Nonreactive)
[2024-05-09 22:58] LABS: Alk.Phos Iso. Macrohepatic 0 % (<=0); Alk.Phos Isoenzymes Bone 56 % (28-66); Alk.Phos Isoenzymes Intest 0 % (1-24); Alk.Phos Isoenzymes Liver 44 % (25-69); Alk.Phos Isoenzymes Placental 0 % (<=0); Alk.Phos Isoenzymes Total 95 U/L (36-130)
== END 2024-05-04 15:05 | disposition home or self-care (01) ==
LOC: HO.HMGCLDS 15:04
PROVIDERS: PCP Nurse Practitioner Family; Visit Provider Nurse Practitioner Family
DX: E11.65 Type 2 diabetes mellitus with hyperglycemia (principal); R74.8 Abnormal levels of other serum enzymes
CPT/HCPCS: 36415; 80053; 80061; 81001; 82043; 82570; 82977; 83036; 84080; 84439; 84443; 85025; 86704; 86706; 86709; 86803; 87340

== ENCOUNTER 2024-05-24 11:11 | Outpatient (AMB) | payer OTHER, SELFPAY ==
--- NOTE | 2024-05-24 11:19 | A.OFFPC_ITS ---
Vital Signs 05/24/24 11:20 Height 6 ft 4 in Weight 265 lb BMI 32.3 BP 130/82 Blood Pressure Location Rt brachial Position Sitting Pulse 79 Pulse Source Pulse Oximeter Pulse Oximetry (%) 97 Intake Visit Reasons: 3 months f/up Intake Note: pt is here for 3 mon f/up Lyric Writer Required: No Allergies metronidazole [From Flagyl] Allergy (Severe, Verified 05/24/24 11:20) Anaphylaxis varenicline [From Chantix] Allergy (Severe, Verified 05/24/24 11:20) severe stomach pain weird dreams bee pollen [BEE STINGS] Allergy (Intermediate, Verified 05/24/24 11:20) SWELLING hydromorphone [HYDROMORPHONE] Allergy (Intermediate, Verified 05/24/24 11:20) VOMITING barium sulfate Adverse Reaction (Severe, Verified 05/24/24 11:20) Severe stomach pain SHELLFISH Allergy (Severe, Uncoded 02/29/24 15:18) Anaphylaxis ORANGE #5 DYE Allergy (Mild, Uncoded 02/29/24 15:18) HIVES Medication List - Last Reconciled 05/24/24 by Lenny Maher PRESS TOOL 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- albuterol sulfate 90 mcg/actuation 2 puffs inhalation Q4-6H PRN escitalopram oxalate 5 mg PO DAILY famotidine 40 mg PO BEDTIME lisinopril 5 mg PO DAILY 90 days metformin ER 1,000 mg (2 x 500 mg) PO BID 30 days naltrexone 50 mg PO DAILY pantoprazole 40 mg PO DAILY rosuvastatin 20 mg PO .qhs 90 days sucralfate 1 g PO BID Tobacco use date assessed: 05/24/24 Dental Screening Dental Screen Date: 05/24/24 Did you have a dental visit in the last 12 months?: Yes Did you have a dental problem in the last 6 months where you did not have access to dental care?: No Was dental information given to patient?: Patient has dentist HPI 3 months f/up HPI Details Chief Complaint Follow-up for diabetes management and medication refills. History of Present Illness The patient is a 44 year old male presenting with the primary reason for diabetes follow-up. He has a history of Type 2 Diabetes Mellitus with a most recent Hemoglobin A1c greater than 10%. He has been off all diabetic medications for approximately two months due to financial constraints, which has affected his glycemic control. Previously, he was a heavy drinker until mid-February, but he has since quit alcohol entirely and is attending support group meetings, resulting in weight loss and improved outlook on life. Despite being off medications, he reports engaging in good dietary practices for about a month. Additionally, the patient was diagnosed with hyperlipidemia, which has been uncontrolled in part due to discontinuation of rosuvastatin. There is also a noted history of depression for which he requires escitalopram refilling. His TSH levels were slightly elevated on the last test, warranting a repeat test. The patient denies any recent chest pain, shortness of breath, or tingling sensation. He is under care of a therapist for mental health support. Social History - Previously a heavy drinker, now abstin ent since . - Attending support group meetings shahida landin. - Reports weight loss and improved menta l health status with abstinence. - Expresses financial constraints affect ing medication adherence. Health Maintenance - Cholesterol panel indicates very high levels; patient working on dietary changes and resuming rosuvastatin. - TSH was elevated; repeat testing [facility] ed. - Refuses all vaccinations. - A1c was above 10%, reflecting a lapse in diabetes management. - Encouraged to arrange a follow-up eye exam. Review of Systems - Psychiatric: Denies any suicidal or ho micidal ideation. - Cardiovascular: Denies chest pain. - Respiratory: Denies shortness of breat h. - Neurological: Denies tingling anywhere . Physical Exam General: Cooperative, healthy appearing, comfortable, no acute distress and well developed Orientation: Patient oriented x3 Limitations: No limitations Head: Normal to inspection Ears: Hearing grossly normal bilaterally Nose: Normal external nose present Face and sinus: Normal facial exam Eyes: Appearance normal, both eyes and all related structures Neck: Normal visual inspection and Yes full ROM Respiratory: Normal respiratory effort and able to speak in complete sentences. Clear to auscultation bilaterally Cardiovascular: Regular rate and rhythm. Normal S1 and S2 GI: Normal to inspection. Soft to palpation and nontender Skin: No rashes or lesions noted Neuro: Patient oriented x3 Extremities: Normal to inspection, + sensation with use of monofilament. Results - Labs: Hemoglobin A1c greater than 10%. - Labs: Elevated cholesterol panel. - Labs: Elevated TSH. Plan - Refill and initiate adherence to metfo rmin extended release. - Initiate treatment with GLP-1 agonist Mounjaro for better glycemic control. - Refill escitalopram for depression man agement. - Refill rosuvastatin and emphasize adhe rence to manage hyperlipidemia. - Repeat Thyroid function tests to reass ess elevated TSH level. - Encourage scheduling and attending an eye exam for diabetes-related complications. Patient was informed and verbally consented to the use of an ambient scribe for clinic note documentation during this visit. Discussion Notes During the consultation, I discussed with the patient the significance of reinstating his diabetes medications, given the high Hemoglobin A1c value. We talked about introducing a GLP-1 agonist to potentially achieve better glycemic control in conjunction with metformin. For hyperlipidemia, I emphasized the necessity of restarting rosuvastatin to manage his cholesterol levels effectively. I also stressed the importance of repeating the thyroid function test due to the previously noted slight elevation in TSH. I recommended regular adherence to therapy for depression and the resumption of escitalopram. Despite his refusal of vaccinations, I suggested he remains vigilant regarding health maintenance activities, such as managing his diet and scheduling routine health screenings. Patient Instructions - Begin taking the prescribed metformin ER and GLP-1 agonist Mounjaro immediately. - Resume taking rosuvastatin nightly. - Restart escitalopram as prescribed. - Commit to attending regular diabetes a nd mental health support group meetings. - Arrange a follow-up appointment in thr ee months to reassess diabetes control and medication adherence. - Schedule an eye exam as soon as possib le and avoid skipping this screening. - Continue monitoring and improving diet luis habits for better health outcomes. - Repeat blood work as advised to reasse ss thyroid function in a month. ON LICENSE OF [facility] Medical History Elevated cholesterol HTN (hypertension) Arthritis Low back pain Loud snoring Hiatal hernia PUD (peptic ulcer disease) Surgical History History of endoscopy Family History Father No problems noted. Mother Diabetes mellitus Brother No problems noted. Sister No problems noted. Son No problems noted. Daughter No problems noted. Social History Household Members: Family Housing: House Are you a primary acute care nurse practitioner to a significant other at home: No Do you presently have visiting nurse or other home services: No Alcohol intake: current Alcohol intake frequency: 3 or more drinks per day Alcohol type: hard liquor Comment: aware of trip hazard Patient Tobacco Use Status: Current everyday Tobacco user Tobacco use type: Cigarette Cigarette Packs Per Day: 2 Cigarettes Per Day: 40.0 Years Smoked: 11 e-Cigarette/Vaping Use: Never Used Second Hand Smoke Exposure: No Substance Use Type: Crack/Cocaine service: No Current occupational status: employed Current occupation: [employer] Current occupational exposures/hazards: No Cognitive needs: No Hearing needs: No Vision needs: No Questionnaire PHQ-9 Over the last 2 weeks, how often have you been bothered by any of the following problems? 1. Little interest or pleasure in doing things: several days 2. Feeling down, depressed, or hopeless: several days 3. Trouble falling or staying asleep, or sleeping too much: several days 4. Feeling tired or having little energy: several days 5. Poor appetite or overeating: several days 6. Feeling bad about yourself - or that you are a failure or have let yourself or your family down: several days 7. Trouble concentrating on things, such as reading the newspaper or watching television: several days 8. Moving or speaking so slowly that other people could have noticed. Or the opposite - being so fidgety or restless that you have been moving around a lot more than usual: not at all 9. Thoughts that you would be better off or of hurting yourself in some way: not at all Total score: 7 Depression Screening Interpretation: Negative Depression Screening Done: Yes 25186 - PHQ-9 Billing: Yes Source: Developed by Drs. Brandin Morales, Gilma Mayo, Tee Lawrence and colleagues, with an educational daniel from [employer]. Thrive Questionnaire Date Thrive assessed: 05/24/24 I am a: Patient What is your living situation today?: I have a steady place to live Within the past 12 months, did the food you bought not last and you didn't have the money to get more?: Often true Within the past 12 months, did you worry whether your food would run out before you got money to buy more?: Often true Do you have trouble paying for medicines?: Yes Do you have trouble getting transportation to medical appointments?: No Do you have trouble paying your heating and electricity bill?: Yes Do you have trouble taking care of your child, family member or friend?: No Do you have trouble with day-to-day activities such as bathing, preparing meals, shopping, managing finances, etc.?: No Are you currently unemployed and looking for a job?: No Are you interested in more education?: Yes Please select the resources that you would like help with: Food, Paying for medicine, Utilities, Job search/training and Education Currently or been in a relationship where the following occur: No concerns reported THRIVE Score: 3 AUDIT C Alcohol Use Questionnaire (AUDIT-C) 1. How often do you have a drink containing alcohol?: Never 2. How many drinks containing alcohol do you have on a typical day when you are drinking?: 1 or 2 3. How often do you have six or more drinks on one occasion?: Never Total Score: 0 Score Reviewed/Action Taken: Yes ANTHONY-7 AMB Questionnaire ANTHONY-7 Date ANTHONY - 7 assessed: 05/24/24 Feeling nervous, anxious, or on edge: 3 = Nearly every day Not being able to stop or control worryin = More than half the days Worrying too much about different things: 2 = More than half the days Trouble relaxin = Several days Being so restless that it is hard to sit still: 1 = Several days Becoming easily annoyed or irritable: 3 = Nearly every day Feeling afraid as if something awful might happen: 0 = Not at all Total ANTHONY-7 score (0-4 normal; 5-9 mild; 10-14 moderate; 15-21 severe): 12 Source: Developed by Drs. Brandin Morales, Gilma Mayo, Tee Lawrence and colleagues, with an educational daniel from [employer]. ANTHONY-7 Assessment Billing ANTHONY-7 Assessment Tool: ANTHONY-7 Assessment 46779 Physical exam (Primary Care) Vital Signs: Last Vital Signs Pulse 79 05/24/24 11:20 BP 130/82 05/24/24 11:20 Pulse Ox 97 05/24/24 11:20 BMI result Body Mass Index 32.3 Tobacco/Smoking Status: Tobacco use Status Tobacco use date assessed 05/24/24 05/24/24 11:21 Patient Tobacco Use Status Current everyday Tobacco 05/24/24 11:21 Tobacco use type Cigarette 05/24/24 11:21 e-Cigarette/Vaping Use Never Used 05/24/24 11:21 PHQ-9: PHQ-9 Score PHQ-9: Total score 7 05/24/24 11:21 Depression Screening Interpretation: Negative Thrive Assessment: Date of Thrive Assessment Date Thrive assessed 05/24/24 05/24/24 11:21 Currently or been in a relationship where the following occur: No concerns reported Coding Level of Care Code Est Pt Level 3 (27115) Diagnoses Uncontrolled diabetes mellitus with hyperglycemia E11.65 Elevated TSH R79.89 Dyslipidemia E78.5 Additional Codes ANTHONY-7 Assessment Billing - ANTHONY-7 Assessment Tool: ANTHONY-7 Assessment 53738 ([id number]) PHQ-9 - 49681 - PHQ-9 Billing: Yes ([id number]) Assessment & Plan Assessment & Plan (1) Uncontrolled diabetes mellitus with hyperglycemia: Code(s): E11.65 - Type 2 diabetes mellitus with hyperglycemia Category: Medical (2) Elevated TSH: Code(s): R79.89 - Other specified abnormal findings of blood chemistry Category: Medical (3) Dyslipidemia: Code(s): E78.5 - Hyperlipidemia, unspecified Category: Medical Plan . Orders: Orders Complete Blood Count Auto Diff Today E11.65 - Type 2 diabetes mellitus with hyperglycemia TSH reflex Free T4 Today E11.65 - Type 2 diabetes mellitus with hyperglycemia Thyroid Peroxidase Antibodies Today R79.89 - Other specified abnormal findings of blood chemistry Lipid Panel Today E11.65 - Type 2 diabetes mellitus with hyperglycemia Comprehensive [place]. Panel Fast Today E11.65 - Type 2 diabetes mellitus with hyperglycemia UA CC w/rflx Micro + Cult Today E11.65 - Type 2 diabetes mellitus with hyperglycemia Medications: New tirzepatide (Mounjaro) for 4 weeks 2.5 mg (0.5 mL) subcut QWEEK 2 mL 1RF escitalopram oxalate 5 mg PO DAILY 90 tabs 0RF Changed From rosuvastatin 10 mg PO .qhs 90 tabs 0RF To rosuvastatin 20 mg PO .qhs 90 days 90 tabs 0RF Refilled metformin ER 1,000 mg (2 x 500 mg) PO BID 30 days 120 tabs 2RF
[2024-05-24 11:20] VITALS: BP 130/82; PULSE 79; O2SAT 97; BMI 32.3
== END 2024-05-24 12:08 | disposition home or self-care (01) ==
PROVIDERS: PCP Nurse Practitioner Family; Visit Provider Nurse Practitioner Family
DX: E11.65 Type 2 diabetes mellitus with hyperglycemia (principal); R79.89 Other specified abnormal findings of blood chemistry; E78.5 Hyperlipidemia, unspecified

== ENCOUNTER → 2024-05-24 11:11 | Outpatient (BNVA) | payer OTHER, SELFPAY | PROVIDERS: PCP Nurse Practitioner Family; Visit Provider Nurse Practitioner Family | DX: E11.65 Type 2 diabetes mellitus with hyperglycemia (principal); R94.6 Abnormal results of thyroid function studies; E78.5 Hyperlipidemia, unspecified; F32.A Depression, unspecified | CPT/HCPCS: 96127 ==

== ENCOUNTER 2024-07-05 15:18 | Outpatient (AMB) | payer OTHER, SELFPAY ==
--- NOTE | 2024-07-05 15:21 | A.OFFVIS_ITS ---
Intake Visit Reasons: Inj-left knee injection-last inj 12/04/23 Intake Note: Robert is a 44 year old male who presents today for a left knee injection. Patient would like to discuss Gabapentin rx. Allergies metronidazole [From Flagyl] Allergy (Severe, Verified 07/05/24 15:29) Anaphylaxis varenicline [From Chantix] Allergy (Severe, Verified 07/05/24 15:29) severe stomach pain weird dreams bee pollen [BEE STINGS] Allergy (Intermediate, Verified 07/05/24 15:29) SWELLING hydromorphone [HYDROMORPHONE] Allergy (Intermediate, Verified 07/05/24 15:29) VOMITING barium sulfate Adverse Reaction (Severe, Verified 07/05/24 15:29) Severe stomach pain SHELLFISH Allergy (Severe, Uncoded 07/05/24 15:29) Anaphylaxis ORANGE #5 DYE Allergy (Mild, Uncoded 07/05/24 15:29) HIVES HPI HPI Inj-left knee injection-last inj 12/04/23: Details: Mr. Luis paredes is a 44-year-old male who presents to the office today for a repeat cortisone injection left knee. [facility] Medical History Elevated cholesterol HTN (hypertension) Arthritis Low back pain Loud snoring Hiatal hernia PUD (peptic ulcer disease) Surgical History History of endoscopy Family History Father No problems noted. Mother Diabetes mellitus Brother No problems noted. Sister No problems noted. Son No problems noted. Daughter No problems noted. Social History Household Members: Family Housing: House Are you a primary medical care evaluation specialist to a significant other at home: No Do you presently have visiting nurse or other home services: No Alcohol intake: current Alcohol intake frequency: 3 or more drinks per day Alcohol type: hard liquor Comment: aware of trip hazard Patient Tobacco Use Status: Current everyday Tobacco user Tobacco use type: Cigarette Cigarette Packs Per Day: 2 Cigarettes Per Day: 40.0 Years Smoked: 11 e-Cigarette/Vaping Use: Never Used Second Hand Smoke Exposure: No Substance Use Type: Crack/Cocaine service: No Current occupational status: employed 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 Current occupational exposures/hazards: No Cognitive needs: No Hearing needs: No Vision needs: No Review of Systems Const All systems reviewed & are unremarkable except as noted in HPI and below Physical Exam Const General: cooperative, healthy appearing and no acute distress Resp Effort & Inspection: normal respiratory effort and able to speak in complete sentences Cardio Rate: regular rate Peripheral pulses: Peripheral pulses 2+ throughout GI Palpation (GI): Soft to palpation Skin Lesions: no lesions Rashes: no rashes Extrem Other: Left knee: Normal to inspection. No ecchymosis, erythema, or joint effusion. No tenderness to palpation along the lateral joint line. Tenderness to palpation along the medial joint line. Full knee extension and flexion. Positive Rina's medial joint line. NVI. Office Procedures AMB Joint Injection/Aspiration Joint Injection/Aspiration Primary Site: left knee Prep: site was prepped using aseptic technique, ethochloride spray was applied and injection warnings given Injected: 40 mg of, DepoMedrol, with 8 mL of (2% plain lido ) and in the joint Approach Used: anterolateral Procedure: The patient tolerated the procedure well, but had some pain with the injection and there was some relief with the local anesthesia Coding 04667 - Large joint Procedure code (CPT) selection complete Assessment & Plan Assessment & Plan (1) Osteoarthritis of left knee: Code(s): M17.12 - Unilateral primary osteoarthritis, left knee Category: Medical (2) Diabetes mellitus: Code(s): E11.9 - Type 2 diabetes mellitus without complications Category: Medical Plan The patient was offered a cortisone injection in the left knee with 40 mg of DepoMedrol. The patient was explained the risks, benefits, and alternatives to receiving this injection. After receiving consent for the injection, the patient had the procedure done while in the office today. The patient tolerated the procedure well with no complications. Due to the patient?s history of diabetes, they were instructed to monitor their blood glucose level. The patient was informed that they could see a rise in their numbers and if the numbers became too high, they were instructed to call their PCP. The patient was also informed that they could have facial flushing as a side effect of the injection, but this will pass. Follow-up will be p.r.n., or sooner if needed Coding Level of Care Code Est Pt Level 4 (96020) Diagnoses Osteoarthritis of left knee M17.12 Diabetes mellitus E11.9 CPT Codes Coding - 88261 Large joint: 59143 - Large joint ([id number])
== END 2024-07-05 16:49 | disposition home or self-care (01) ==
PROVIDERS: PCP Nurse Practitioner Family; Visit Provider Physician Assistant
DX: M17.12 Unilateral primary osteoarthritis, left knee (principal); E11.9 Type 2 diabetes mellitus without complications
CPT/HCPCS: 20610; 99214

== ENCOUNTER → 2024-07-05 15:18 | Outpatient (BNVA) | payer OTHER, SELFPAY | PROVIDERS: PCP Nurse Practitioner Family; Visit Provider Physician Assistant | DX: M17.12 Unilateral primary osteoarthritis, left knee (principal); E11.9 Type 2 diabetes mellitus without complications | CPT/HCPCS: 20610; J1010; J2003 ==

== ENCOUNTER 2024-07-18 15:12 | Outpatient (AMB) | payer OTHER, SELFPAY ==
--- NOTE | 2024-07-18 15:14 | A.OFFVIS_ITS ---
Intake Visit Reasons: Vasectomy consult Intake Note: New patient presents today for initial visit for vasectomy consult Urology Medication: none Blood Thinner:none Antibiotic Allergies: none Children: 3 Expectin Hall Porter Required: No Allergies metronidazole [From Flagyl] Allergy (Severe, Verified 07/18/24 16:53) Anaphylaxis varenicline [From Chantix] Allergy (Severe, Verified 07/18/24 16:53) severe stomach pain weird dreams bee pollen [BEE STINGS] Allergy (Intermediate, Verified 07/18/24 16:53) SWELLING hydromorphone [HYDROMORPHONE] Allergy (Intermediate, Verified 07/18/24 16:53) VOMITING barium sulfate Adverse Reaction (Severe, Verified 07/18/24 16:53) Severe stomach pain SHELLFISH Allergy (Severe, Uncoded 07/18/24 16:53) Anaphylaxis ORANGE #5 DYE Allergy (Mild, Uncoded 07/18/24 16:53) HIVES Medication List - Last Reconciled 07/18/24 by EVER Marcus-LANA albuterol sulfate 90 mcg/actuation 2 puffs inhalation Q4-6H PRN escitalopram oxalate 5 mg PO DAILY famotidine 40 mg PO BEDTIME lisinopril 5 mg PO DAILY 90 days metformin ER 1,000 mg (2 x 500 mg) PO BID 30 days pantoprazole 40 mg PO DAILY rosuvastatin 20 mg PO .qhs 90 days tirzepatide (Mounjaro) 2.5 mg (0.5 mL) subcut QWEEK HPI Comments Details: Robert Willis is a very pleasant 44-year-old male patient of Dr. Ramirez. He has a past medical history of hypertension, type 2 diabetes, hypercholesteremia, arthritis, hiatal hernia, and peptic ulcer disease. He presents to the office today as a new patient for vasectomy evaluation. Vasectomy evaluation The patient presents for vasectomy consultation.? He is currently engaged He has fathered -?3 children with 2 partners The youngest child is -4 years old His partner is aware and permissive for a vasectomy Current form of control is condoms and rhythm Current employment is works on [employer] The vasectomy may be complicated due to a history of no complicating issues. Patient education has been provided via AUA video, via printed information, risks of failure, recovery time, bruising and potential pain syndrome have been stressed Discussion today focused on the presence of vasectomy and the risks, benefits and alternatives that are available. Vasectomy as intended as a permanent form of control. Printed information and literature was provided to the patient. Overall there is a one in 2500 failure rate. This can occur at any time after vasectomy. Risks were discussed highlighting hematoma, spermatocele, epididymal congestion, development of sperm antibodies, and development of chronic pain estimated between 1-5%. The procedure was reviewed in detail. Anatomical diagrams of the male genitalia were used to explain the location of the vas deferens. The vas deferens will be transected, the proximal end will be cauterized, a metal clip would be applied to separate the 2 vas deferens ends. It was explained the procedure will be done in the office and takes approximately 10-15 minutes. Less common problems that arise with vasectomy include hematoma, bleeding, allergic reaction to anesthetic, epididymal infection, epididymal congestion, scrotal discomfort, spermatic leak, spermatic granuloma and the possibility of antisperm antibodies. He understands these risks and wishes to proceed. Consent was signed at the office today. He also understands that it takes 12 weeks for sperm to fully clear the system. He will need to provide a semen sample at 12 weeks and if this is not clear a 2nd sample at 16 weeks. Medical clearance to stop using protection will only be provided if he satisfies published criteria for sperm clearance. [facility] Medical History Elevated cholesterol HTN (hypertension) Arthritis Low back pain Loud snoring Hiatal hernia PUD (peptic ulcer disease) Surgical History History of endoscopy Family History Father No problems noted. Mother Diabetes mellitus Brother No problems noted. Sister No problems noted. Son No problems noted. Daughter No problems noted. Social History Household Members: Family Housing: House Are you a primary hemodialysis patient care specialist to a significant other at home: No Do you presently have visiting nurse or other home services: No Alcohol intake: current Alcohol intake frequency: 3 or more drinks per day Alcohol type: hard liquor Comment: aware of trip hazard Patient Tobacco Use Status: Current everyday Tobacco user Tobacco use type: Cigarette Cigarette Packs Per Day: 2 Cigarettes Per Day: 40.0 Years Smoked: 11 e-Cigarette/Vaping Use: Never Used Second Hand Smoke Exposure: No Substance Use Type: Crack/Cocaine service: No Current occupational status: employed 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 Current occupational exposures/hazards: No Cognitive needs: No Hearing needs: No Vision needs: No Review of Systems Const All systems reviewed & are unremarkable except as noted in HPI and below Physical Exam Const General: cooperative, healthy appearing, comfortable, no acute distress, well developed, alert and awake Nutritional Appearance: overweight Orientation/consciousness: patient oriented x3 Limitations: no limitations HEENT Head: Yes normal to inspection, Yes normocephalic and Yes atraumatic Ears: hearing grossly normal bilaterally Eyes General: appearance normal, both eyes and all related structures Neck Neck: Yes normal visual inspection and Yes trachea midline Chest Chest palpation & inspection: normal inspection of the chest Resp Effort & Inspection: normal respiratory effort and able to speak in complete sentences Cardio Rate: regular rate GI Inspection: Yes normal to inspection General: Yes no CVA tenderness Back/Spine/Pelvis Back: no CVA tenderness Skin General skin exam: no rashes or lesions noted Neuro General: patient oriented x3 Extrem General: Yes normal to inspection Psych Appearance: grossly normal and well kempt Mental Status: mental status grossly normal Speech and movement: Normal speech and movement present and Clear speech present Affect: normal affect Attitude: cooperative Thought process: Normal thought process present Thought content: Normal thought content present Insight: Fair insight present (Psych) Judgement: Fair judgement present (Psych) Assessment & Plan Assessment & Plan (1) Vasectomy evaluation: Code(s): Z30.09 - Encounter for other general counseling and advice on contraception Category: Medical (2) Anxiety about health: Code(s): R45.89 - Other symptoms and signs involving emotional state Category: Medical Plan Vasectomy risks and benefits were discussed at length. All questions were answered. Prescriptions provided for medication; we discussed importance of bringing medication to office day of procedure. We discussed in office semen analysis verses fellows kit. Consent obtained. Will schedule for vasectomy. Follow-up per doctor's orders; or sooner with any issues, concerns, and or questions. Medications: New diazepam (Valium) Bringing medication to office day of procedure 2 mg PO DAILY 2 tabs 0RF anxiety R45.89 - Other symptoms and signs involving emotional state tramadol Bring medication to office day of procedure 50 mg PO Q8H PRN 7 tabs 0RF pain Patient Instructions: The patient had an opportunity to ask questions regarding the treatment plan. All questions were answered. Physical exam, labs, and imaging were discussed and reviewed in detail. As well as risks, benefits, and discussion of treatment choices. No major barriers to understanding were identified. The patient expressed understanding and agreement with the above treatment plan. The patient was made aware they should contact our office by phone for worsening of their current condition, the appearance of new symptoms, or with any questions or concerns. Compliance is encouraged with any medications and follow up testing that is ordered. It is a privilege to be allowed the opportunity to participate in? your urological care.? Again, if you have any questions or concerns If you have any questions or concerns please do not hesitate to contact me. The office is [phone]. This note is constructed using voice recognition software. While every effort has been made to ensure accuracy administrative law judge errors may have been included. Yours sincerely, CHERY Marcus Coding Level of Care Code New Pt Level 4 (96582) Diagnoses Vasectomy evaluation Z30.09 Anxiety about health R45.89
== END 2024-07-18 15:59 | disposition home or self-care (01) ==
PROVIDERS: PCP Nurse Practitioner Family; Visit Provider Nurse Practitioner Family
DX: Z30.09 Encounter for other general counseling and advice on contraception (principal); R45.89 Other symptoms and signs involving emotional state
CPT/HCPCS: 99204

== ENCOUNTER 2024-08-23 14:16 | Outpatient (AMB) | payer OTHER, SELFPAY ==
[2024-08-23 14:35] VITALS: BP 130/82; PULSE 86; O2SAT 98; BMI 32.4
--- NOTE | 2024-08-23 14:35 | A.OFFPC_ITS ---
Vital Signs 08/23/24 14:35 Height 6 ft 4 in Weight 266 lb BMI 32.4 BP 130/82 Blood Pressure Location Lt brachial Position Sitting Pulse 86 Pulse Source Pulse Oximeter Pulse Oximetry (%) 98 Oxygen Delivery Method Room Air Intake Visit Reasons: 3 months f/up Allergies metronidazole [From Flagyl] Allergy (Severe, Verified 08/23/24 14:35) Anaphylaxis varenicline [From Chantix] Allergy (Severe, Verified 08/23/24 14:35) severe stomach pain weird dreams bee pollen [BEE STINGS] Allergy (Intermediate, Verified 08/23/24 14:35) SWELLING hydromorphone [HYDROMORPHONE] Allergy (Intermediate, Verified 08/23/24 14:35) VOMITING barium sulfate Adverse Reaction (Severe, Verified 08/23/24 14:35) Severe stomach pain SHELLFISH Allergy (Severe, Uncoded 07/18/24 16:53) Anaphylaxis ORANGE #5 DYE Allergy (Mild, Uncoded 07/18/24 16:53) HIVES Medication List - Last Reconciled 08/23/24 by EVER Fermin- albuterol sulfate 90 mcg/actuation 2 puffs inhalation Q4-6H PRN diazepam (Valium) 2 mg PO DAILY escitalopram oxalate 10 mg PO DAILY famotidine 40 mg PO BEDTIME insulin glargine (Lantus Solostar U-100 Insulin) 10 units (0.1 mL) subcut QPM lisinopril 5 mg PO DAILY 90 days pantoprazole 40 mg PO DAILY pen needle, diabetic (Comfort EZ Pen Mentor) ONCE a night rosuvastatin 20 mg PO .qhs 90 days tirzepatide (Mounjaro) 2.5 mg (0.5 mL) subcut QWEEK tramadol 50 mg PO Q8H PRN Tobacco use date assessed: 05/24/24 Dental Screening Dental Screen Date: 05/24/24 HPI 3 months f/up HPI Details Chief Complaint The patient reports difficulties managing blood sugar levels. History of Present Illness The patient is a 44-year-old male presenting for a follow-up visit to address his Type 2 Diabetes Mellitus. His hemoglobin A1c level is notably elevated above 10%, indicating poorly controlled diabetes. Previous attempts to mitigate this condition included the prescription of a GLP-1 receptor agonist; however, this was not initiated due to insurance coverage issues. The patient is considering alternative GLP-1 agonists that may be covered by his insurance plan. He reports ongoing challenges in maintaining his blood glucose levels within the target range. Furthermore, the patient is a smoker, which adversely affects his diabetic state. He is motivated to implement dietary modifications to improve management of his diabetes. The patient is knowledgeable regarding the symptoms and management of hypoglycemia, suggesting a degree of self-management capability. eye exam is up to date Social History - Tobacco Use: The patient is a current smoker. - Nutrition: The patient is motivated to work on dietary changes to aid in managing his diabetes. Health Maintenance - Discussion on the impact of smoking on diabetes and overall health. - Encouragement to work on dietary habit s to optimize diabetes management. Review of Systems - Respiratory: Reports respiratory sympt oms consistent with smoking. Physical Exam General: Cooperative, healthy appearing, comfortable, no acute distress and well developed Orientation: Patient oriented x3 Limitations: No limitations Head: Normal to inspection Ears: Hearing grossly normal bilaterally Nose: Normal external nose present Face and sinus: Normal facial exam Eyes: Appearance normal, both eyes and all related structures Neck: Normal visual inspection and Yes full ROM Respiratory: Slight wheezing throughout. Able to speak in complete sentences. Clear to auscultation bilaterally Cardiovascular: Regular rate and rhythm. Normal S1 and S2 GI: Normal to inspection. Soft to palpation and nontender Skin: No rashes or lesions noted Neuro: Patient oriented x3 Extremities: Normal to inspection, feet were intact, positive sensation, use of monofilament Results - Labs: Hemoglobin A1c level above 10%. Plan I have commenced the patient on Lantus, 10 units at nighttime, to address his uncontrolled Type 2 Diabetes Mellitus, as the elevated A1c level suggests the need for insulin therapy. The choice of Lantus is due to its once-daily dosing and suitability in basal insulin regimens. The patient's insurance constraints regarding GLP-1 agonists are noted, and alternative covered medications will be explored. The patient is encouraged to submit regular blood glucose readings via the patient portal. Smoking cessation is strongly recommended to enhance diabetes control. Dietary adjustments are also targeted as part of his comprehensive diabetes management. A follow-up is scheduled in three months, but ongoing remote monitoring is planned. Discussion Notes During our discussion, I informed the patient about the significantly elevated A1c value and the need for immediate intervention with insulin therapy. We reviewed the benefits of initiating Lantus and the patient understood its role in managing baseline glucose levels. I discussed the risks associated with insulin therapy, including hypoglycemia, and assured the patient that he is well-acquainted with corrective measures. I emphasized the effect of smoking on diabetes control and generally on lung health, urging for cessation. We discussed his nutritional habits and the positive impact that dietary changes may have on glycemic control. The patient agreed to communicate his blood glucose values through the patient portal, with follow-ups as needed, and acknowledged the need for a close follow-up in three months. Patient Instructions - Begin Lantus 10 units each night as pr escribed. - Monitor blood glucose levels at home a nd report via the patient portal. - Contact insurance to verify coverage f or alternative GLP-1 agonists. - Work on reducing and eventually quitti ng smoking. - Implement dietary changes aimed at imp roving diabetic control. - Call the office with any concerns or s ymptoms of hypoglycemia. - Return for follow-up in three months o r as needed. -labs encouraged [facility] Medical History Elevated cholesterol HTN (hypertension) Arthritis Low back pain Loud snoring Hiatal hernia PUD (peptic ulcer disease) Surgical History History of endoscopy Family History Father No problems noted. Mother Diabetes mellitus Brother No problems noted. Sister No problems noted. Son No problems noted. Daughter No problems noted. Social History Household Members: Family Housing: House Are you a primary palliative care nurse practitioner to a significant other at home: No Do you presently have visiting nurse or other home services: No Alcohol intake: current Alcohol intake frequency: 3 or more drinks per day Alcohol type: hard liquor Comment: aware of trip hazard Patient Tobacco Use Status: Current everyday Tobacco user Tobacco use type: Cigarette Cigarette Packs Per Day: 2 Cigarettes Per Day: 40.0 Years Smoked: 11 e-Cigarette/Vaping Use: Never Used Second Hand Smoke Exposure: No Substance Use Type: Crack/Cocaine service: No Current occupational status: employed 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 Current occupational exposures/hazards: No Cognitive needs: No Hearing needs: No Vision needs: No Questionnaire Thrive Questionnaire Date Thrive assessed: 05/18/24 I am a: Patient What is your living situation today?: I have a steady place to live Within the past 12 months, did the food you bought not last and you didn't have the money to get more?: Often true Within the past 12 months, did you worry whether your food would run out before you got money to buy more?: Often true Do you have trouble paying for medicines?: Yes Do you have trouble getting transportation to medical appointments?: No Do you have trouble paying your heating and electricity bill?: Yes Do you have trouble taking care of your child, family member or friend?: No Do you have trouble with day-to-day activities such as bathing, preparing meals, shopping, managing finances, etc.?: No Are you currently unemployed and looking for a job?: No Are you interested in more education?: Yes Currently or been in a relationship where the following occur: No concerns reported THRIVE Score: 3 ANTHONY-7 AMB Questionnaire ANTHONY-7 Date ANTHONY - 7 assessed: 05/24/24 Source: Developed by Drs. Brandin Morales, Gilma Mayo, Tee Lawrence and colleagues, with an educational daniel from [employer]. Physical exam (Primary Care) Vital Signs: Last Vital Signs Pulse 86 08/23/24 14:35 BP 130/82 08/23/24 14:35 Pulse Ox 98 08/23/24 14:35 Oxygen Delivery Method Room Air 08/23/24 14:35 BMI result Body Mass Index 32.4 Tobacco/Smoking Status: Tobacco use Status Tobacco use date assessed 05/24/24 08/23/24 14:36 Patient Tobacco Use Status Current everyday Tobacco 08/23/24 14:36 Tobacco use type Cigarette 08/23/24 14:36 e-Cigarette/Vaping Use Never Used 08/23/24 14:36 Thrive Assessment: Date of Thrive Assessment Date Thrive assessed 05/18/24 08/23/24 14:36 Currently or been in a relationship where the following occur: No concerns reported Results AMB Hemoglobin A1c AMB Hemoglobin A1c 10.3 % Last Edit by Salvador Venegas CMA on 08/23/24 15 :02 Results Reviewed Results Reviewed: Laboratory Last Values Hgb A1c (Clinic) 10.3 % (4.0-6.0) H 08/23/24 15:02 Coding Level of Care Code Est Pt Level 3 (92875) Diagnoses Uncontrolled diabetes mellitus with hyperglycemia E11.65 Assessment & Plan Assessment & Plan (1) Uncontrolled diabetes mellitus with hyperglycemia: Code(s): E11.65 - Type 2 diabetes mellitus with hyperglycemia Category: Medical Plan . Orders: Orders AMB Hemoglobin A1c Today Z13.9 - Encounter for screening, unspecified Medications: New pen needle, diabetic (Comfort EZ Pen Mentor) ONCE a night 100 ea 1RF diabetes insulin glargine (Lantus Solostar U-100 Insulin) 10 units (0.1 mL) subcut QPM 15 mL 0RF FreeStyle Alia 3 Plus Sensor (blood-glucose sensor) Check blood sugar 4 times per day, change sensor every 15 days 2 ea 5RF NS E11.65 - Type 2 diabetes mellitus with hyperglycemia Changed From escitalopram oxalate 5 mg PO DAILY 90 tabs 0RF To escitalopram oxalate 10 mg PO DAILY 90 tabs 0RF
--- OUTSIDE RECORDS SUMMARY | 2024-08-23 17:24 | XMS_ITS | Clinical Summary ---
Author Organization [employer] Address [address] [facility] [address] [place] [address] Care Team Providers Care Nut Sifter Name Role Phone Unavailable Primary Care Provider Unavailabl e Encounters Date Type Department Care Team Description 07/29/2024 Population Health Risk Score [facility] (C3) Department [address] [facility] [address] [place] [address] Provider, Population Health Generic from Last 3 Months Social History Tobacco Use Types Packs/Day Years Used Date Smoking Tobacco: Never Assessed Sex and Gender Information Value Date Recorded Sex Assigned at Not on file Legal Sex Male 2:14 AM EST Gender Identity Not on file Sexual Orientation Not on file Plan of Treatment Health Maintenance Due Date Last Done Comments CT Colonography 1978 Colonoscopy 1978 Colorectal Cancer Screening 1978 Depression Screening 1978 FIT DNA/Cologuard 1978 FIT 1978 FOBT 1978 HIV Screening 1978 Lipid Panel 1978 SDOH Screening 1978 Sigmoidoscopy 1978 Alcohol/Substance Use Screening 1990 Tobacco Screening 1990 Family Planning (PISQ) 1993 Hepatitis C Screening 01/17/1996 DTaP/Tdap/Td Vaccines (1 - Tdap) 1997 Hepatitis B Vaccines (1 of 3 - 19+ 3-dose series) 1997 COVID-19 Vaccine ( - 2023-2 5 season) 2024 Influenza Vaccine (#1) 2024 Zoster Vaccines (1 of 2) 01/17/2028 RSV Patients and Pa tients Aged 60 years or older (1 - 1-dose 75+ series) 2053 HIB Vaccines Aged Out No longer eligi ble based on patient's age to complete this topic HPV Vaccines Aged Out No longer eligi ble based on patient's age to complete this topic Hepatitis A Vaccines Aged Out No long er eligible based on patient's age to complete this topic IPV Vaccines Aged Out No longer eligi ble based on patient's age to complete this topic Meningococcal Vaccine Aged Out No andrews lona eligible based on patient's age to complete this topic Pneumococcal Vaccine: Pediat rics (0 to 5 Years) and At-Risk Patients (6 to 49) Years) Aged Out No longer eligible b ased on patient's age to complete this topic RSV under 20 months Aged Out No longe r eligible based on patient's age to complete this topic Rotavirus Vaccines Aged Out No longer eligible based on patient's age to complete this topic
== END 2024-08-23 15:29 | disposition home or self-care (01) ==
PROVIDERS: PCP Nurse Practitioner Family; Visit Provider Nurse Practitioner Family
DX: Z13.9 Encounter for screening, unspecified (principal); E11.65 Type 2 diabetes mellitus with hyperglycemia

== ENCOUNTER → 2024-08-23 14:16 | Outpatient (BNVA) | payer OTHER, SELFPAY | PROVIDERS: PCP Nurse Practitioner Family; Visit Provider Nurse Practitioner Family | DX: E11.65 Type 2 diabetes mellitus with hyperglycemia (principal) | CPT/HCPCS: 83036 ==

== ENCOUNTER 2024-09-16 14:42 | Outpatient (AMB) | payer OTHER, SELFPAY ==
--- OUTSIDE RECORDS SUMMARY | 2024-09-16 14:47 | XMS_ITS | Clinical Summary ---
Author Organization [employer] Address [address] [facility] [address] [place] [address] Care Team Providers Care Bottom Turner Name Role Phone Unavailable Primary Care Provider Unavailabl e Encounters Date Type Department Care Team Description 07/29/2024 Population Health Risk Score [facility] (C3) Department [address] [facility] [address] [place] [address] Provider, Population Health Generic from [...]
--- NOTE | 2024-09-16 14:55 | A.OFFVIS_ITS ---
Intake Visit Reasons: Vasectomy Intake Note: Patient is present for VASECTOMY Urology Medication:NONE Antibiotic Allergy:NONE Blood Thinner:NONE Forming And Assembling Supervisor Required: No Allergies metronidazole [From Flagyl] Allergy (Severe, Verified 10/12/24 14:53) Anaphylaxis varenicline [From Chantix] Allergy (Severe, Verified 10/12/24 14:53) severe stomach pain weird dreams bee pollen [BEE STINGS] Allergy (Intermediate, Verified 10/12/24 14:53) SWELLING hydromorphone [HYDROMORPHONE] Allergy (Intermediate, Verified 10/12/24 14:53) VOMITING barium sulfate Adverse Reaction (Severe, Verified 10/12/24 14:53) Severe stomach pain SHELLFISH Allergy (Severe, Uncoded 10/12/24 14:53) Anaphylaxis ORANGE #5 DYE Allergy (Mild, Uncoded 10/12/24 14:53) HIVES HPI Comments Details: Robert Willis is a very pleasant 44-year-old male patient of Dr. Ramirez. He has a past medical history of hypertension, type 2 diabetes, hypercholesteremia, arthritis, hiatal hernia, and peptic ulcer disease. He presents to the office today as a new patient for vasectomy evaluation. Vasectomy procedure The patient presents for vasectomy procedure.? He is currently engaged He has fathered -?3 children with 2 partners The youngest child is -4 years old His partner is aware and permissive for a vasectomy Current form of control is condoms and rhythm Current employment is works on [employer] [facility] Medical History (Updated 10/06/24 @ 17:11 by Lilia Menendez NP) Testicular pain, left Elevated cholesterol HTN (hypertension) Arthritis Low back pain Loud snoring Hiatal hernia PUD (peptic ulcer disease) Surgical History History of endoscopy Family History Father No problems noted. Mother Diabetes mellitus Brother No problems noted. Sister No problems noted. Son No problems noted. Daughter No problems noted. Social History Household Members: Family Housing: House Are you a primary manager progressive care to a significant other at home: No Do you presently have visiting nurse or other home services: No Alcohol intake: current Alcohol intake frequency: 3 or more drinks per day Alcohol type: hard liquor Comment: aware of trip hazard Patient Tobacco Use Status: Current everyday Tobacco user Tobacco use type: Cigarette Cigarette Packs Per Day: 2 Cigarettes Per Day: 40.0 Years Smoked: 11 e-Cigarette/Vaping Use: Never Used Second Hand Smoke Exposure: No Substance Use Type: Crack/Cocaine service: No Current occupational status: employed Current occupation: [employer] Current occupational exposures/hazards: No Cognitive needs: No Hearing needs: No Vision needs: No Office Procedures Vasectomy Details: Preoperative diagnosis: Anxiety regarding Postoperative diagnosis: Anxiety regarding unplanned Procedure: Bilateral vasectomy Informed consent had been completed. Preoperative and postoperative instructions were provided to the patient. The patient has transportation to home identified at the completion of the procedure. Anti-anxiolytic prescription medication had been taken after consent verification and all questions answered. Tylenol with Codeine pain medication was also provided. The penis was elevated using a rubber band that was attached to the patient's shirt. Both vasa were palpated through the skin using a 3 finger technique and the penoscrotal junction was prepped with Betadine. After Betadine application the left vas was elevated using a 3 finger grasping technique. 1% lidocaine was used to create a subdermal bubble. Further anesthetic was then advanced using the 25-gauge needle along the vasa in a proximal fashion. Approximately 2 minutes were allowed to for local anesthetic uptake. Using the sharp spreading instrument the scrotal skin was spread longitudinally in line with the vasa until the subdermal layer had been divided. The vasa was then elevated from the scrotum using a ring clamp. Care was taken to elevate the superior portion of the vasa by rotating the ring clamp in a caudad direction. The battery powered cautery was used to divide the vasal sheath in a longitudinal direction on the exposed vasa and to strip the vasal sheath from the vasa. A 2nd narrower ring clamp was placed on the exposed vas and used to lift the vas from the vasal sheath. so it grasped the elevated vas. The cautery was used to divide vasal attachments and allow full exposure of a small loop of vasa. The sharp spreading instrument was then used to create a tunnel under the vasa and spread to allow the blood vessels of the vasa to retract from the vasa. A mosquito clamp was placed on the proximal portion of the vas. The battery- powered cautery was used to make a partial division in the proximal vas and then inserted in order to cauterize the proximal end of the vas. This was then cut and allowed to retract into the vasal sheath. The mosquito was then used to twist the vasa 180 degrees creating a fascial interposition. Using a 4-0 chromic suture the fascial interposition was sutured closed. The distal portion of the vas was then cut in order to obtain a segment of vasa. The vasa were allowed to retract back into the scrotum. A small snap was then used to approximate the skin edges and allow hemostasis without placement of a suture. A similar procedure was repeated on the right side. He tolerated the procedure well. Triple antibiotic was applied. A gauze was applied. An ice pack was applied to assist with minimizing swelling. Postoperative instructions were confirmed. He understands the need to continue to use control methods. A semen sample should be brought for inspection under the microscope in 10-12 weeks. CPT 57853 Vasectomy performed by: Manuel Hoyt Informed consent given: Yes Informed consent signed: Yes Time out checklist: patient, procedure, site marked/identified, positioning of patient, supplies available, allergies confirmed and team agrees on procedure 48435 - Vasectomy Office Meds lidocaine (PF) 10 mg/mL (1 %) injection solution Performing Provider: Manuel Hoyt MD Performing Location: [facility] [place] [facility] Administered by: Rhoda Ovalles RN on 09/16/24 15:22 Dose Route Admin Location Dispensed Lot Number Expiration Date [facility] Licensed [employer]al[employer] 10 mL Infiltration 10 mL Assessment & Plan Assessment & Plan (1) Anxiety about health: Code(s): R45.89 - Other symptoms and signs involving emotional state Category: Medical Plan Three-month follow-up semen analysis Orders: Orders AMB Vasectomy 09/16/24 R45.89 - Other symptoms and signs involving emotional state Patient Instructions: This note is constructed using voice recognition software. While every effort has been made to ensure accuracy online tutor errors may have been included. Imaging studies, laboratory and physical exam results were discussed and reviewed in detail. No major barriers to patient understanding were identified. An opportunity to ask questions regarding the treatment plan was provided. All questions were answered. The patient expressed understanding and agreement with the above treatment plan. The patient is aware they should contact our office by phone for worsening of their current condition or the appearance of new urologic symptoms. Compliance is encouraged with any medications and followup testing that is ordered. It is a privilege to participate in the urologic care of your patient. If you have any questions or concerns regarding treatment for the above conditions, or other urologic issues, please do not hesitate to contact me. The office telephone contact is [phone]. Sincerely, Dr Manuel Hoyt MD, [facility] - Urology Compassionate Specialist Care for the Genitourinary System Coding Level of Care Code Procedure Only Diagnoses Anxiety about health R45.89 CPT Codes Office Procedure - CPT: 95003 - Vasectomy ([id number])
== END 2024-09-16 15:51 | disposition home or self-care (01) ==
LOC: HO.HUSH 14:43
PROVIDERS: PCP Nurse Practitioner Family; Visit Provider Urology
DX: R45.89 Other symptoms and signs involving emotional state (principal); Z30.2 Encounter for sterilization
CPT/HCPCS: 55250

== ENCOUNTER → 2024-09-16 14:42 | Outpatient (BNVA) | payer OTHER, SELFPAY | PROVIDERS: PCP Nurse Practitioner Family; Visit Provider Urology | DX: Z30.2 Encounter for sterilization (principal); F41.8 Other specified anxiety disorders | CPT/HCPCS: 55250; J2003 ==

== ENCOUNTER 2024-10-06 13:53 | Outpatient (AMB) | payer OTHER, SELFPAY ==
--- OUTSIDE RECORDS SUMMARY | 2024-10-06 13:59 | XMS_ITS | Clinical Summary ---
Author Organization [facility] Address [address] [place] [address] Care Team Providers Care Township Supervisor Name Role Phone Unavailable Primary Care Provider Unavailabl e Encounters Date Type Department Care Team Description 07/29/2024 Population Health Risk Score [facility] (C3) Department [address] [place] [address] Provider, Population Health Generic from [...] Panel 1978 SDOH Screening 1978 Sigmoidoscopy 1978 Disability Screening 1978 Alcohol/Substance Use Screening 1990 Tobacco Screening [...] patient's age to complete this topic Meningococcal B Vaccine Aged Out No l onger eligible based on patient's age to complete [...]
--- NOTE | 2024-10-06 15:18 | AM.OFFWIN_ITS ---
Intake Vital Signs 3 10/06/24 15:25 Weight 265 lb BP 120/90 H Blood Pressure Location Rt brachial Position Sitting Pulse 63 Pulse Source Pulse Oximeter Pulse Oximetry (%) 98 Oxygen Delivery Method Room Air Intake Visit Reasons: EP lump in area of vasectomy procedure Intake Note: Patient here for lump on incision that he noticed 4 days after procedure. Patient Tobacco Use Status: Current everyday Tobacco user Allergies metronidazole [From Flagyl] Allergy (Severe, Verified 10/06/24 15:37) Anaphylaxis varenicline [From Chantix] Allergy (Severe, Verified 10/06/24 15:37) severe stomach pain weird dreams bee pollen [BEE STINGS] Allergy (Intermediate, Verified 10/06/24 15:37) SWELLING hydromorphone [HYDROMORPHONE] Allergy (Intermediate, Verified 10/06/24 15:37) VOMITING barium sulfate Adverse Reaction (Severe, Verified 10/06/24 15:37) Severe stomach pain SHELLFISH Allergy (Severe, Uncoded 10/06/24 15:37) Anaphylaxis ORANGE #5 DYE Allergy (Mild, Uncoded 10/06/24 15:37) HIVES Do you need a note to return to daycare/school/sports/work: No HPI HPI Comments 2 History of Present Illness0 Details 44 y/o Male patient who presents to the walk in clinic with c/o feeling a small lump that is Tender to touch and painful on the Post-op Testicles. He had Vasectomy surgery done 09/27 and had his Post-op check up few days later. Reports ~ 4 days ago while in the shower he felt a small painful lump on the left post-op testicle. Reports pain with prolonged sitting, going up/down stairs and With palpation. Denies dysuria, urinary frequency or urgency. Denies Hematuria or inability to void. Pt does admit to returning to work 3 days post-Op - he did not know that he was suppose to rest and not return to work immediately post-op. He did try to call the Urology office for an urgent appointment but was informed to come to the urgent clinic for evaluation. [facility] Medical History (Updated 10/06/24 @ 17:11 by Lilia Menendez NP) Testicular pain, left Elevated cholesterol HTN (hypertension) Arthritis Low back pain Loud snoring Hiatal hernia PUD (peptic ulcer disease) Surgical History (Reviewed 08/23/24 @ 15:31 by [facility] History of endoscopy Family History Father No problems noted. Mother Diabetes mellitus Brother No problems noted. Sister No problems noted. Son No problems noted. Daughter No problems noted. Social History Household Members: Family Housing: House Are you a primary hospice care consultant to a significant other at home: No Do you presently have visiting nurse or other home services: No Alcohol intake: current Alcohol intake frequency: 3 or more drinks per day Alcohol type: hard liquor Comment: aware of trip hazard Patient Tobacco Use Status: Current everyday Tobacco user Tobacco use type: Cigarette Cigarette Packs Per Day: 2 Cigarettes Per Day: 40.0 Years Smoked: 11 e-Cigarette/Vaping Use: Never Used Second Hand Smoke Exposure: No Substance Use Type: Crack/Cocaine service: No Current occupational status: employed Current occupation: [employer] Current occupational exposures/hazards: No Cognitive needs: No Hearing needs: No Vision needs: No Review of Systems Const All systems reviewed & are unremarkable except as noted in HPI and below Physical Exam Vital Signs: Last Vital Signs Pulse 63 10/06/24 15:25 BP 120/90 H 10/06/24 15:25 Pulse Ox 98 10/06/24 15:25 Oxygen Delivery Method Room Air 10/06/24 15:25 Const General: no acute distress Orientation/consciousness: patient oriented x3 General: Yes no CVA tenderness Male genitals images: 2 1. Small painful to touch lump, soft and mobile. Normal size testicle, color, temperature and no rashes or discharge. Back/Spine/Pelvis Back: no CVA tenderness Neuro General: patient oriented x3, gait normal and moves all extremities Psych Speech and movement: Normal speech and movement present Assessment & Plan Assessment & Plan (1) Testicular pain, left: Code(s): N50.812 - Left testicular pain Plan: No obvious signs of infection present. Probably Lymph node enlargement. Advised to f/u with Urology, meanwhile; - Naproxen for pain relief. - Ice/Hot - Rest for few days, no heavy lifting, work note provided to Patient. Educated on Red flag signs and when to report to ED. Coding Level of Care Code Est Pt Level 4 (42005) Diagnoses Testicular pain, left N50.812 Time Spent (min) 20
[2024-10-06 15:25] VITALS: BP 120/90; PULSE 63; O2SAT 98
== END 2024-10-06 16:32 | disposition home or self-care (01) ==
PROVIDERS: PCP Nurse Practitioner Family; Visit Provider Nurse Practitioner Family
DX: N50.812 Left testicular pain (principal)

== ENCOUNTER → 2024-10-06 13:53 | Outpatient (BNVA) | payer OTHER, SELFPAY | PROVIDERS: PCP Nurse Practitioner Family; Visit Provider Nurse Practitioner Family ==

== ENCOUNTER 2024-10-12 14:36 | Outpatient (AMB) | payer OTHER, SELFPAY ==
--- NOTE | 2024-10-12 14:51 | A.OFFVIS_ITS ---
Intake Visit Reasons: Follow up/lump/vestectomy Intake Note: Patient is present for LUMP,VESTECTOMY F/U Urology Medication:NONE Antibiotic Allergy:NONE Blood Thinner:NONE Clinical Social Worker Required: No Allergies metronidazole [From Flagyl] Allergy (Severe, Verified 10/12/24 14:53) Anaphylaxis varenicline [From Chantix] Allergy (Severe, Verified 10/12/24 14:53) severe stomach pain weird dreams bee pollen [BEE STINGS] Allergy (Intermediate, Verified 10/12/24 14:53) SWELLING hydromorphone [HYDROMORPHONE] Allergy (Intermediate, Verified 10/12/24 14:53) VOMITING barium sulfate Adverse Reaction (Severe, Verified 10/12/24 14:53) Severe stomach pain SHELLFISH Allergy (Severe, Uncoded 10/12/24 14:53) Anaphylaxis ORANGE #5 DYE Allergy (Mild, Uncoded 10/12/24 14:53) HIVES HPI Comments Details: Robert Willis is a very pleasant 44-year-old male patient of Dr. Ramirez. He has a past medical history of hypertension, type 2 diabetes, hypercholesteremia, arthritis, hiatal hernia, and peptic ulcer disease. 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 Mother Diabetes mellitus Brother No problems noted. Sister No problems noted. Son No problems noted. Daughter No problems noted. Social History Household Members: Family Housing: House Are you a primary care trainer to a significant other at home: No Do you presently have visiting nurse or other home services: No Alcohol intake: current Alcohol intake frequency: 3 or more drinks per day Alc ohol type: hard liquor Comment: aware of trip hazard Patient Tobacco Use Status: Current everyday Tobacco user Tobacco use type: Cigarette Cigarette Packs Per Day: 2 Cigarettes Per Day: 40.0 Years Smoked: 11 e-Cigarette/Vaping Use: Never Used Second Hand Smoke Exposure: No Substance Use Type: Crack/Cocaine service: No Current occupational status: employed Current occupation: [employer] Current occupational exposures/hazards: No Cognitive needs: No Hearing needs: No Vision needs: No Review of Systems Const Denies chills and Denies fever(s) Card Reports no additional complaints and Denies syncope Resp Denies cough GI Denies abdominal pain and Denies heartburn Reports as per HPI and Denies change in libido Neuro Denies syncope Psych Denies change in libido Endo Denies change in libido Physical Exam Const General: cooperative, healthy appearing, comfortable and no acute distress Orientation/consciousness: patient oriented x3 HEENT Face and sinus: Yes normal facial exam Mouth: moist mucous membranes Neck Neck: Yes normal visual inspection, Yes full ROM and Yes trachea midline Chest Chest palpation & inspection: normal inspection of the chest Resp Effort & Inspection: normal respiratory effort, able to speak in complete sentences and no respiratory distress GI Inspection: Yes normal to inspection Back/Spine/Pelvis Cervical Spine: normal cervical lordosis Thoracic/Lumbar Spine: thoracic and lumbar spine normal to inspection Skin General skin exam: no rashes or lesions noted Neuro General: patient oriented x3, gait normal, tone normal and moves all extremities Extrem General: Yes normal to inspection and Yes capillary refill normal Assessment & Plan Assessment & Plan (1) Scrotal swelling: Code(s): N50.89 - Other specified disorders of the male genital organs Category: Medical Plan Reassurance provided Orders: Orders Testosterone, Free/Total 10/12/24 E11.65 - Type 2 diabetes mellitus with hyperglycemia Patient Instructions: This note is constructed using voice recognition software. While every effort has been made to ensure accuracy all source collection manager errors may have been included. Imaging studies, laboratory and physical exam results were discussed and reviewed in detail. No major barriers to patient understanding were identified. An opportunity to ask questions regarding the treatment plan was provided. All questions were answered. The patient expressed understanding and agreement with the above treatment plan. The patient is aware they should contact our office by phone for worsening of their current condition or the appearance of new urologic symptoms. Compliance is encouraged with any medications and followup testing that is ordered. It is a privilege to participate in the urologic care of your patient. If you have any questions or concerns regarding treatment for the above conditions, or other urologic issues, please do not hesitate to contact me. The office telephone contact is [phone]. Sincerely, Dr Manuel Hoyt MD, [facility] - Urology Compassionate Specialist Care for the Genitourinary System Coding Level of Care Code Est Pt Level 3 (64100) Diagnoses Scrotal swelling N50.89
--- OUTSIDE RECORDS SUMMARY | 2024-10-12 15:28 | XMS_ITS | Clinical Summary ---
Author Organization [employer] [facility] Address [address] [place] [address] Care Team Providers Care Nutritional Assistant Name Role Phone Unavailable Primary Care Provider Unavailabl e Encounters Date Type Department Care Team Description 07/29/20[address] Risk Score [facility] (C3) Department [address] [facility] [place] [address] Provider, Population Health Generic from [...]
== END 2024-10-12 15:28 | disposition home or self-care (01) ==
LOC: HO.HUSH 14:37
PROVIDERS: PCP Nurse Practitioner Family; Visit Provider Urology
DX: N50.89 Other specified disorders of the male genital organs (principal)
CPT/HCPCS: 99024

== ENCOUNTER → 2024-10-12 14:36 | Outpatient (BNVA) | payer OTHER, SELFPAY | PROVIDERS: PCP Nurse Practitioner Family; Visit Provider Urology ==

== ENCOUNTER 2025-03-07 13:44 | Outpatient (AMB) | payer OTHER, SELFPAY ==
--- NOTE | 2025-03-07 13:52 | MHC.OFFVIS ---
Vital Signs 03/07/25 13:57 Height 6 ft 4 in Weight 257 lb BMI 31.3 BP 144/92 H Blood Pressure Location Rt brachial Position Sitting Pulse 82 Pulse Source Pulse Oximeter Pulse Oximetry (%) 97 Oxygen Delivery Method Room Air Intake Visit Reasons: [place] screening due, was ANGELI pt Intake Note: Returning pt for mgmt of GERD. Prev EGD (2011), no prior hx of colo. CC: C.O. constipation w/ hemorrhoids, GERD persistence despite current therapy, epigastric pain. Pt states his sx are seemingly worse at night. Automotive Manufacturer Required: No Accompanied by: Self / Same As Patient Allergies metronidazole (From Flagyl) Allergy (Severe, Verified 03/07/25 13:52) Anaphylaxis varenicline (From Chantix) Allergy (Severe, Verified 03/07/25 13:52) severe stomach pain weird dreams bee pollen (BEE STINGS) Allergy (Intermediate, Verified 03/07/25 13:52) SWELLING hydromorphone (HYDROMORPHONE) Allergy (Intermediate, Verified 03/07/25 13:52) VOMITING barium sulfate Adverse Reaction (Severe, Verified 03/07/25 13:52) Severe stomach pain SHELLFISH Allergy (Severe, Uncoded 03/07/25 13:52) Anaphylaxis ORANGE #5 DYE Allergy (Mild, Uncoded 03/07/25 13:52) HIVES HPI HPI [place] screening due, was ANGELI pt: Details: 45 year old? male with past medical history of and anxiety, dyslipidemia, hypertension, diabetes, depression, GERD, transaminitis, hiatal hernia is here today for pre colonoscopy screening.? Patient was sent to us by his PCP.? This is his first colonoscopy screening.? Patient has been on PPI for quite some time. History of acid reflux. Now controlled for the most part with omeprazole. Occasional acid reflux at night time and epigastric pain with and snacking late at night. Denies any personal or family history of gastrointestinal disease, colon polyps, or CRC.? Denies history of difficulty with sedation or anesthesia in the past.? Negative for history of sleep apnea, however was told that he stops breathing when he sleeps as well as snores. Was sent for sleep apnea study, however was denied by his health insurance. His Denies any history of cardiac, renal, pulmonary, or hepatic disease.?? No history of infectious? diseases like hepatitis A, B, C, HIV or tuberculosis.? Patient is not on any anticoagulation [facility] Medical History Testicular pain, left Elevated cholesterol HTN (hypertension) Arthritis Low back pain Loud snoring Hiatal hernia PUD (peptic ulcer disease) Surgical History History of endoscopy Family History Father No problems noted. Mother Diabetes mellitus Brother No problems noted. Sister No problems noted. Son No problems noted. Daughter No problems noted. Social History Household Members: Family Housing: House Are you a primary hospice care consultant to a significant other at home: No Do you presently have visiting nurse or other home services: No Alcohol intake: current Alcohol intake frequency: 3 or more drinks per day Alcohol type: hard liquor Comment: aware of trip hazard Patient Tobacco Use Status: Current everyday Tobacco user Tobacco use type: Cigarette Cigarette Packs Per Day: 2 Cigarettes Per Day: 40.0 Years Smoked: 11 e-Cigarette/Vaping Use: Never Used Second Hand Smoke Exposure: No Substance Use Type: Crack/Cocaine service: No Current occupational status: employed Current occupation: [employer] Current occupational exposures/hazards: No Cognitive needs: No Hearing needs: No Vision needs: No Review of Systems Const Denies weight gain and Denies weight loss ENT Reports no additional complaints, Denies dysphagia and Denies odynophagia Card Reports no additional complaints Resp Reports no additional complaints GI Denies abdominal pain, Denies belching, Denies melena, Denies bloating, Denies change in bowel habits, Denies dysphagia, Denies excessive flatus, Denies dyspepsia, Reports heartburn (Occasional), Denies diarrhea, Denies loose stools, Denies nausea, Denies odynophagia and Denies vomiting Reports no additional complaints Musc Reports no additional complaints Neuro Reports no additional complaints Psych Reports no additional complaints Endo Reports no additional complaints Physical Exam Vital Signs: Last Vital Signs Pulse 82 03/07/25 13:57 BP 144/92 H 03/07/25 13:57 Pulse Ox 97 03/07/25 13:57 Oxygen Delivery Method Room Air 03/07/25 13:57 BMI result Body Mass Index 31.3 Const General: healthy appearing, no acute distress and well developed Nutritional Appearance: well nourished and obese Orientation/consciousness: patient oriented x3 Resp Effort & Inspection: normal respiratory effort, able to speak in complete sentences, no tracheal deviation and symmetric chest movement Auscultation: clear to auscultation bilaterally Cardio Rate: regular rate GI Inspection: Yes normal to inspection, No distended and Yes obesity Palpation (GI): Soft to palpation, not firm, nontender and No hepatosplenomegaly present Auscultation: normal bowel sounds General: Yes no CVA tenderness Back/Spine/Pelvis Back: no CVA tenderness Skin General skin exam: elasticity normal, turgor normal and dry skin Neuro General: patient oriented x3 Psych Appearance: grossly normal Mental Status: mental status grossly normal Assessment & Plan Assessment & Plan (1) Screening for colon cancer: Code(s): Z12.11 - Encounter for screening for malignant neoplasm of colon Category: Medical (2) GERD (gastroesophageal reflux disease): Code(s): K21.9 - Gastro-esophageal reflux disease without esophagitis Category: Medical Qualifiers: Esophagitis presence: esophagitis presence not specified Qualified Code(s): K21.9 - Gastro-esophageal reflux disease without esophagitis Plan Patient denies any cardiac or respiratory symptoms.? On PPI for GERD. Occasional acid reflux during the night if he falls asleep after eating on his belly. Patient patient will be sent for upper endoscopy. History of upper endoscopy in the past. Denies any issues with anesthesia in the past.? Denies any history of sleep apnea, however witnessed snoring and apneic episodes.? No history of infectious diseases in the past or present.? Not on any anticoagulation therapy.? No family or personal history of colon cancer or polyps.? Patient denies melena, hematochezia, unintentional weight loss or ribbon like stools.? Discussed at length the pre-procedure,? prep, diet & medications as well as what to expect prior, during and after the procedure.?? Stressed the importance of good bowel prep.? Recommended the use of Vaseline or Calmoseptine OTC & baby wipes with bowel movements to promote comfort.? ?Patient verbalizes understanding and agrees to plan of care.? He was given the opportunity to ask questions and all questions answered.? We will see him after the procedure.? Orders: Referrals GI Procedure Notification K21.9 - Gastro-esophageal reflux disease without esophagitis, Z12.11 - Encounter for screening for malignant neoplasm of colon Medications: New bisacodyl (Dulcolax (bisacodyl)) take 4 tabs at noon the day before your colonoscopy 20 mg (4 x 5 mg) PO ONCE 4 tabs 0RF constipation 1 day Z12.11 - Encounter for screening for malignant neoplasm of colon polyethylene glycol 3350 (Miralax) As directed by gastroenterology department at [facility] 238 grams PO ONCE 238 grams 0RF Z12.11 - Encounter for screening for malignant neoplasm of colon hydrocortisone 2.5% (Proctosol HC) 1 appl VA BID-QID PRN 30 grams 2RF hemorrhoids K64.9 - Unspecified hemorrhoids Coding Level of Care Code New Pt Level 4 (43928) Diagnoses Screening for colon cancer Z12.11 Gastroesophageal reflux disease, unspecified whether esophagitis present K21.9 Esophagitis presence: esophagitis presence not specified Time Spent (min) 45 Comment 35 minutes spent with patient and additional 10 minutes spent reviewing his records
[2025-03-07 13:57] VITALS: BP 144/92; PULSE 82; O2SAT 97; BMI 31.3
== END 2025-03-07 14:47 | disposition home or self-care (01) ==
LOC: HO.HGI 13:46
PROVIDERS: PCP Nurse Practitioner Family; Visit Provider Nurse Practitioner Family
DX: Z01.818 Encounter for other preprocedural examination (principal); Z12.11 Encounter for screening for malignant neoplasm of colon; K21.9 Gastro-esophageal reflux disease without esophagitis
CPT/HCPCS: 99204

== ENCOUNTER 2025-03-08 06:15 | Outpatient (REF) | payer OTHER, MEDICAID, SELFPAY ==
--- OUTSIDE RECORDS SUMMARY | 2025-03-08 06:19 | XMS_ITS | Clinical Summary ---
Author Organization [facility] Address [address] 7 [place] [address] Care Team Providers Care Yolk Spray Drier Name Role Phone Unavailable Primary Care Provider Unavailabl e Social History Tobacco Use Types Packs/Day Years [...] - 19+ 3-dose series) 1997 COVID-19 Vaccine (1 - 2023-2 5 season) 2025 Influenza Vaccine (#1) 2025 Zoster Vaccines (1 of 2) 01/17/2028 RSV [...] Years) and At-Risk Patients (6 to 49) Years Aged Out No longer eligible b ased on patient's age to complete this topic RSV under 20 months Aged Out No longe r eligible based on patient's age to complete this topic Rotavirus Vaccines Aged Out No longer eligible based on patient's age to complete this topic
[2025-03-08 10:13] LABS: Appearance Urine Clear; Glucose Urine UA 500 mg/dL (Negative); PH 6.5 (5.0-9.0); Specific Gravity - Urine 1.025 (1.005-1.025)
[2025-03-08 10:40] LABS: MANUAL DIFF FLAG NO
[2025-03-08 10:53] LABS: Hematocrit 46.2 % (42.0-52.0); Hemoglobin 15.4 g/dl (14.0-18.0); Imm Gran Abs Auto 0.01 X10*3/uL (0.00-0.03); Imm Gran Pct Auto 0.2 % (0.0-0.4); Lymphocytes Absolute Auto 2.1 X10*3/uL (1.2-4.9); Mean Corpuscular HGB Conc 33.3 g/dl (31.0-36.0); Mean Corpuscular Hemoglobin 29.0 pg (27.0-33.0); Mean Corpuscular Volume 87.0 fL (80.0-98.0); NRBC Abs Auto 0.000 X10*3/uL (0.0-0.012); NRBC Pct Auto 0.0 /100WBC (0.0-0.2); Platelet Count 215 X10*3/uL (160-400); Red Blood Count 5.31 X10*6/uL (4.60-5.80); White Blood Count 6.6 X10*3/uL (4.8-10.8)
[2025-03-08 11:19] LABS: Alanine Aminotransferase 52 U/L (0-40); Albumin Level 4.4 g/dL (3.5-5.0); Alkaline Phosphatase 88 U/L (39-117); Anion Gap 12 (12-20); Aspartate Amino Transferase 28 U/L (5-37); Blood Urea Nitrogen 18 mg/dL (9-16); Calcium 9.1 mg/dL (8.4-10.2); Carbon Dioxide 27 mmol/L (22-29); Chloride 103 mmol/L (96-108); Cholesterol 274 mg/dL (<200); Estimated Glomerular Filt Rate > 60; HDL Cholesterol 31 mg/dL (>40); Potassium 4.1 mmol/L (3.3-5.1); Sodium 138 mmol/L (135-145); Total Protein 7.0 g/dL (6.5-8.0); Triglycerides 658 mg/dL (<150)
[2025-03-08 12:30] LABS: Free T4 (Free Thyroxine) 0.74 ng/dL (0.71-1.85)
== END 2025-03-08 06:16 | disposition home or self-care (01) ==
LOC: HO.HMGCLDS 06:15
PROVIDERS: PCP Nurse Practitioner Family; Visit Provider Nurse Practitioner Family
DX: Z00.01 Encounter for general adult medical examination with abnormal findings (principal); E11.9 Type 2 diabetes mellitus without complications; F17.210 Nicotine dependence, cigarettes, uncomplicated; Z79.4 Long term (current) use of insulin; Z79.899 Other long term (current) drug therapy
CPT/HCPCS: 36415; 80053; 80061; 81003; 82043; 82570; 83036; 84439; 84443; 85025

== ENCOUNTER 2025-03-08 13:37 | Outpatient (AMB) | payer OTHER, SELFPAY ==
[2025-03-08 13:55] VITALS: BP 120/80; PULSE 77; RESP 16; TEMP 36.6; O2SAT 98; BMI 32.9
--- NOTE | 2025-03-08 13:55 | MHC.PC.OV ---
Vital Signs 03/08/25 13:55 Height 6 ft 4 in Weight 270 lb BMI 32.9 BP 120/80 Blood Pressure Location Lt brachial Position Sitting Respiration 16 Pulse 77 Pulse Source Pulse Oximeter Temp 97.9 F Temp Source Oral Pulse Oximetry (%) 98 Oxygen Delivery Method Room Air Intake Visit Reasons: PE w/ labs Senior Programmer Required: No Accompanied by: Self / Same As Patient Allergies metronidazole (From Flagyl) Allergy (Severe, Verified 03/08/25 14:36) Anaphylaxis varenicline (From Chantix) Allergy (Severe, Verified 03/08/25 14:36) severe stomach pain weird dreams bee pollen (BEE STINGS) Allergy (Intermediate, Verified 03/08/25 14:36) SWELLING hydromorphone (HYDROMORPHONE) Allergy (Intermediate, Verified 03/08/25 14:36) VOMITING barium sulfate Adverse Reaction (Severe, Verified 03/08/25 14:36) Severe stomach pain SHELLFISH Allergy (Severe, Uncoded 03/08/25 14:36) Anaphylaxis ORANGE #5 DYE Allergy (Mild, Uncoded 03/08/25 14:36) HIVES Medication List - Last Reconciled 03/08/25 by Lenny Maher, SWEATBAND SEPARATOR- albuterol sulfate 90 mcg/actuation 2 puffs inhalation Q4-6H PRN atorvastatin (Lipitor) 20 mg PO BEDTIME 90 days bisacodyl (Dulcolax (bisacodyl)) 20 mg (4 x 5 mg) PO ONCE 1 day escitalopram oxalate 10 mg PO DAILY FreeStyle Alia 3 Plus Sensor (blood-glucose sensor) Check blood sugar 4 times per day, change sensor every 15 days NS hydrocortisone 2.5% (Proctosol HC) 1 appl RI BID-QID PRN insulin glargine (Lantus Solostar U-100 Insulin) 10 units (0.1 mL) subcut QPM naproxen 500 mg PO BID omega-3 acid ethyl esters 2 caps PO BID 90 days omeprazole 20 mg PO DAILY pen needle, diabetic (Comfort EZ Pen Valdez) ONCE a night polyethylene glycol 3350 (Miralax) 238 grams PO ONCE Tobacco use date assessed: 03/08/25 Dental Screening Dental Screen Date: 03/08/25 Did you have a dental visit in the last 12 months?: Yes Did you have a dental problem in the last 6 months where you did not have access to dental care?: No Was dental information given to patient?: Patient has dentist HPI PE w/ labs HPI Details History of Present Illness The patient is a 45-year-old male presenting for a physical exam and management of chronic conditions. The patient has a history of Diabetes Mellitus, with a recent HbA1c of 8.8%, down from 10.3%. He does not adhere to daily insulin therapy, which has been emphasized as crucial for his management. The patient also has hyperlipidemia, with elevated triglycerides and LDL cholesterol levels. He had previously discontinued statin therapy, which is now being reinstated along with omega-3 ethyl esters. Hypothyroidism is another concern, with elevated TSH levels noted. The patient reports fatigue and constipation, prompting the initiation of levothyroxine therapy. Preventative care measures include an upcoming colonoscopy for colon cancer screening. Health Maintenance - Colon cancer screening: Upcoming colonoscopy - Eye exam: Up to date - Vaccinations: Declined all Social History Review of Systems - Cardiovascular: Denies chest pain - Respiratory: Denies dyspnea - Gastrointestinal: Denies abdominal pain, blood in stool, diarrhea; Reports constipation - General: Reports fatigue Physical Exam General: Cooperative, healthy appearing, comfortable, no acute distress and well developed Orientation: Patient oriented x3 Limitations: No limitations Head: Normal to inspection Ears: Hearing grossly normal bilaterally Nose: Normal external nose present Face and sinus: Normal facial exam Eyes: Appearance normal, both eyes and all related structures Neck: Normal visual inspection and Yes full ROM Respiratory: Normal respiratory effort and able to speak in complete sentences. Clear to auscultation bilaterally Cardiovascular: Regular rate and rhythm. Normal S1 and S2 GI: Normal to inspection. Soft to palpation and nontender : Testicles without masses/lesions and no hernias appreciated Skin: No rashes or lesions noted Neuro: Patient oriented x3 Extremities: Normal to inspection, feet are intact, + sensation with use of monofilament Results - Labs: HbA1c 8.8%, previously 10.3% - Labs: Elevated triglycerides and LDL cholesterol - Labs: Elevated TSH Plan 1. Diabetes Mellitus The patient's HbA1c has improved to 8.8% from 10.3%, indicating some progress in glycemic control. However, he is not consistently taking his insulin, which is crucial for managing his diabetes. Follow-up is planned in four months to monitor diabetes management, with repeat labs in two months. 2. Hyperlipidemia The patient has elevated triglycerides and LDL cholesterol levels. He will be restarted on statin therapy and omega-3 ethyl esters to manage his lipid levels. Cholesterol levels will be reassessed in two months. 3. Hypothyroidism The patient has elevated TSH levels, consistent with hypothyroidism. He reports fatigue and constipation, which are symptoms of hypothyroidism. Levothyroxine 25 mcg daily has been initiated, with thyroid function tests to be repeated in two months. 4. Preventative Care: Colon Cancer Screening The patient is scheduled for a colonoscopy as part of routine colon cancer screening. Discussion Notes I discussed with the patient the importance of adhering to insulin therapy for diabetes management and the plan to restart statin therapy for hyperlipidemia. We also talked about starting levothyroxine for hypothyroidism and the need for follow-up lab tests in two months. The patient was informed about the upcoming colonoscopy for cancer screening and the importance of maintaining up-to-date preventative care measures. Patient Instructions - Take insulin daily as prescribed to manage blood sugar levels. - Restart statin medication and take omega-3 supplements as directed. - Begin levothyroxine 25 mcg daily for thyroid management. - Schedule and attend the upcoming colonoscopy for cancer screening. - Return for follow-up in four months and repeat labs in two months. [facility] Medical History Testicular pain, left Elevated cholesterol HTN (hypertension) Arthritis Low back pain Loud snoring Hiatal hernia PUD (peptic ulcer disease) Surgical History History of endoscopy Family History Father No problems noted. Mother Diabetes mellitus Brother No problems noted. Sister No problems noted. Son No problems noted. Daughter No problems noted. Social History Household Members: Family Housing: House Are you a primary medicare contact specialist to a significant other at home: No Do you presently have visiting nurse or other home services: No Alcohol intake: current Alcohol intake frequency: 3 or more drinks per day Alcohol type: hard liquor Comment: aware of trip hazard Patient Tobacco Use Status: Current everyday Tobacco user Tobacco use type: Cigarette Cigarette Packs Per Day: 2 Cigarettes Per Day: 40.0 Years Smoked: 11 e-Cigarette/Vaping Use: Never Used Second Hand Smoke Exposure: No Substance Use Type: Crack/Cocaine service: No Current occupational status: employed 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 Current occupational exposures/hazards: No Cognitive needs: No Hearing needs: No Vision needs: No Questionnaire Thrive Questionnaire Date Thrive assessed: 05/18/24 I am a: Patient What is your living situation today?: I have a steady place to live Within the past 12 months, did the food you bought not last and you didn't have the money to get more?: Often true Within the past 12 months, did you worry whether your food would run out before you got money to buy more?: Often true Do you have trouble paying for medicines?: Yes Do you have trouble getting transportation to medical appointments?: No Do you have trouble paying your heating and electricity bill?: Yes Do you have trouble taking care of your child, family member or friend?: No Do you have trouble with day-to-day activities such as bathing, preparing meals, shopping, managing finances, etc.?: No Are you currently unemployed and looking for a job?: No Are you interested in more education?: Yes Currently or been in a relationship where the following occur: No concerns reported THRIVE Score: 3 ANTHONY-7 AMB Questionnaire ANTHONY-7 Date ANTHONY - 7 assessed: 05/24/24 Source: Developed by Drs. Brandin Morales, Gilma Mayo, Tee Lawrence and colleagues, with an educational daniel from [employer]. Physical exam (Primary Care) Vital Signs: Last Vital Signs Temp 97.9 F 03/08/25 13:55 Pulse 77 03/08/25 13:55 Resp 16 03/08/25 13:55 BP 120/80 03/08/25 13:55 Pulse Ox 98 03/08/25 13:55 Oxygen Delivery Method Room Air 03/08/25 13:55 BMI result Body Mass Index 32.9 Tobacco/Smoking Status: Tobacco use Status Tobacco use date assessed 03/08/25 03/08/25 13:59 Patient Tobacco Use Status Current everyday Tobacco 03/08/25 13:59 Tobacco use type Cigarette 03/08/25 13:59 e-Cigarette/Vaping Use Never Used 03/08/25 13:59 Thrive Assessment: Date of Thrive Assessment Date Thrive assessed 05/18/24 03/08/25 13:59 Currently or been in a relationship where the following occur: No concerns reported Coding Level of Care Code Est Pt Level 3 (35918) Est Pt Prev Care 40-64y(74030) Diagnoses Diabetes E11.9 Encounter for routine adult physical exam with abnormal findings Z00.01 Assessment & Plan Assessment & Plan (1) Diabetes: Code(s): E11.9 - Type 2 diabetes mellitus without complications Category: Medical (2) Encounter for routine adult physical exam with abnormal findings: Code(s): Z00.01 - Encounter for general adult medical examination with abnormal findings Category: Medical Plan . Orders: Orders Comprehensive [place]. Panel Fast 2 Months E11.9 - Type 2 diabetes mellitus without complications UA CC w/rflx Micro + Cult 2 Months E11.9 - Type 2 diabetes mellitus without complications Complete Blood Count Auto Diff 2 Months E11.9 - Type 2 diabetes mellitus without complications TSH reflex Free T4 2 Months E11.9 - Type 2 diabetes mellitus without complications Lipid Panel 2 Months E11.9 - Type 2 diabetes mellitus without complications Medications: New atorvastatin (Lipitor) 20 mg PO BEDTIME 90 tabs 0RF 90 days omega-3 acid ethyl esters 2 caps PO BID 360 caps 1RF 90 days levothyroxine (Euthyrox) 25 mcg PO DAILY 90 tabs 0RF 90 days Discontinued rosuvastatin Discontinued Reason: Duplicate 20 mg PO .qhs 90 days 90 tabs 0RF
--- OUTSIDE RECORDS SUMMARY | 2025-03-08 19:22 | XMS_ITS | Clinical Summary ---
Author Organization [facility] Address [address] [place] [address] Care Team Providers Care Fleet Dispatch Manager Name Role Phone Unavailable Primary Care Provider [...]
== END 2025-03-08 14:52 | disposition home or self-care (01) ==
LOC: HO.HMCC 13:37
PROVIDERS: PCP Nurse Practitioner Family; Visit Provider Nurse Practitioner Family
DX: Z00.01 Encounter for general adult medical examination with abnormal findings (principal); E11.9 Type 2 diabetes mellitus without complications